=== PATIENT | female | born 1940 | race Caucasian/White ===

== ENCOUNTER 2016-07-13 09:29 | Emergency (ER) | payer MEDICARE, OTHER ==
[~2016-07-13] VITALS: Ht 172.7 cm; Wt 81.8 kg
[~2016-07-13 09:29] MED LIST: AMLO10TA62 PO; ASCO10007 PO; ASPI-611 PO; CALC1TAB17 PO; CHLO25TA16 PO; ESTR1TAB77 PO; FISH1CAP59 PO; IBUP200T53; LOSA100T44 PO; LUTE20CA3 PO; MULT-806 PO
[2016-07-13 09:32] VITALS: BP 129/61; PULSE 71; RESP 12; TEMP 97.4; O2SAT 94; Ht 172.7 cm; Wt 81.8 kg
--- OUTSIDE RECORDS SUMMARY | 2016-07-13 09:34 | XMS REPORT | Referral Summary ---
Author Author [facility] Organization [facility] Address Unknown Phone Unavailable Care Team Providers Care Occupational Therapy Supervisor Name Role Phone Noah Arzate Primary Care Physician [phone] Encounter VC Date(s): 12/10/14 - 12/10/14 [facility] [address] [place] [address] Discharge Disposition: 01-Home or Self Care Attending Physician: Frandy Arzate MD Admitting Physician: Frandy Arzate MD Vital Signs Most recent to 1 oldest [Reference Range]: Blood Pressure 180/110 mmHg [90-140/60-90 mmHg] *HI* (12/10/14 1:56 PM) Problem List Condition Effective Dates Status Health Status Informant Acute Active pain(Confirmed) Adenoca of Active rectum(Confirmed) Alteration in Active nutrition(Confirmed) 1 Anemia(Confirmed) Active At risk of pressure Resolved sore(Confirmed) Bowel Active dysfunction(Confirme d)2 ENTHESOPATHY OF HIP Active REGION(Confirmed) Rash(Confirmed) Active Fluid Resolved imbalance(Confirmed) 3 H/O Active ileostomy(Confirmed) Hypertension(Confirm Active ed) Impaired gas Resolved exchange(Confirmed)4 Impaired skin Active integrity(Confirmed) 5, 6 Elevated blood Active sugar(Confirmed) Lumbar Active radiculopathy(Confir med) Cedillo Active syndrome(Confirmed) Colon 1998 Active cancer(Confirmed)7 Rectal Active cancer(Confirmed) MERALGIA Active PARESTHETICA(Confirm ed) Morbid Active patient obesity(Confirmed) 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) Lumbar disc Active herniation(Confirmed ) Lumbar spinal Active stenosis(Confirmed) Subacromial Active bursitis(Confirmed) THORACIC OR Active LUMBOSACRAL NEURITIS OR RADICULITIS, UNSPECIFIED(Confirme d) Tobacco Active patient user(Confirmed) Trochanteric Active bursitis, left hip(Confirmed) 1Problem added automatically by system based on initiation of Alteration in Nutrition Plan of Care 2Problem added automatically by system based on initiation of Bowel Dysfunction Plan of Care 3Problem added automatically by system based on initiation of Fluid Volume Imbalance Plan of Care 4Problem added automatically by system based on initiation of Impaired Gas Exchange Plan of Care 5Problem updated automatically by system based on initiation of Impaired Skin Integrity Plan of Care 6Problem added automatically by system based on initiation of Impaired Skin Integrity Plan of Care 7SGY X3 Allergies, Adverse Reactions, Alerts Substance Reaction Severity Status morphine Itching Active Medications acetaminophen 325 mg oral tablet 650 mg 2 tabs, Oral, q4hr, Pain Mild (1-3), 0 Refill(s) Start Date: 08/05/14 Status: Ordered Aleve 220 mg, Oral, Daily, 0 Refill(s) Start Date: 03/09/15 Status: Ordered amLODIPine 10 mg oral tablet See Instructions, TAKE 1 TABLET BY MOUTH DAILY Pt needs med check appointment, # 30 tabs, 0 Refill(s), Pharmacy: [facility], TAKE 1 TABLET BY MOUTH DAILY; Pt needs med check appointment Start Date: 06/14/15 Status: Ordered aspirin 81 mg oral tablet 81 mg 1 tabs, Oral, qPM, # 30 tabs, 0 Refill(s) Start Date: 03/18/14 Status: Ordered Calcium 600+D 1 tabs, Oral, Daily, 0 Refill(s) Start Date: 03/18/14 Status: Ordered Cipro 500 mg oral tablet 500 mg 1 tabs, Oral, q12hr, # 42 tabs, 0 Refill(s), Pharmacy: [facility] , 1 tabs Oral q12hr,x21 days Start Date: 05/17/15 Stop Date: 06/07/15 Status: Ordered Claritin 10 mg, Oral, Daily, as needed for allergy symptoms, 0 Refill(s) Start Date: 06/24/14 Status: Ordered Fish Oil 1200 mg oral capsule 1,200 mg 1 caps, Oral, qPM, 0 Refill(s) Start Date: 03/18/14 Status: Ordered Flagyl 500 mg oral tablet 500 mg 1 tabs, Oral, q12hr, # 42 tabs, 0 Refill(s), Pharmacy: [facility] , 1 tabs Oral q12hr,x21 days Start Date: 05/17/15 Stop Date: 06/07/15 Status: Ordered Flonase 50 mcg/inh nasal spray 2 sprays, Nasal, Daily, Seasonal Allergy Symptoms, 0 Refill(s) Start Date: 06/24/14 Status: Ordered hydrochlorothiazide 25 mg oral tablet 25 mg 1 tabs, Oral, Daily, # 90 tabs, 1 Refill(s), Pharmacy: [facility], 1 tabs Oral Daily Start Date: 02/17/15 Status: Ordered hydrocortisone 2.5% topical cream 1 bc, Topical, TID, prn as needed, # 30 g, 0 Refill(s), Pharmacy: [facility] Start Date: 06/14/15 Status: Ordered lutein 20 mg oral tablet 20 mg 1 tabs, Oral, Daily, # 30 tabs, 0 Refill(s) Start Date: 03/18/14 Status: Ordered magnesium oxide 400 mg (241.3 mg elemental magnesium) oral tablet 800 mg 2 tabs, Oral, Daily, # 60 tabs, 3 Refill(s), Pharmacy: [facility] , 2 tabs Oral Daily Start Date: 08/25/14 Status: Ordered metoprolol tartrate 25 mg oral tablet 25 mg 1 tabs, Oral, BID, # 180 tabs, 1 Refill(s), Pharmacy: [facility] Start Date: 02/17/15 Stop Date: 08/16/15 Status: Ordered multivitamin 1 tabs, Oral, qPM, 0 Refill(s) Start Date: 03/18/14 Status: Ordered [place] 5 mg-325 mg oral tablet 1 -2 tabs, Oral, q4hr, Pain Moderate (4-6), 0 Refill(s) Start Date: 03/13/15 Status: Ordered omega-3 polyunsaturated fatty acids oral capsule 1 caps, Oral, Daily, # 100 caps, 0 Refill(s) Start Date: 03/11/15 Status: Ordered Opium Deodorized 10% (equivalent to morphine 10 mg/mL) oral tincture See Instructions, 0.5 ml po tid, # 50 mL, 0 Refill(s) Start Date: 06/15/15 Status: Ordered potassium chloride 20 mEq oral tablet, extended release 20 mEq 1 tabs, Oral, Daily, # 30 tabs, 3 Refill(s), Pharmacy: [facility] , 1 tabs Oral Daily Start Date: 12/16/14 Status: Ordered Vitamin C 500 mg, Oral, qPM, 0 Refill(s) Start Date: 07/19/14 Status: Ordered Results No data available for this section Immunizations Vaccine Date Refusal Reason influenza virus vaccine, inactivated 11/24/14 pneumococcal 23-polyvalent vaccine 03/19/15 Procedures Procedure Date Related Diagnosis Body Site Closure Ileostomy1 03/11/15 LEFT L2-3/L4-5 TRANSFORAMINAL 11/11/14 Laparotomy Exploratory2 07/01/14 Cystoscopy Ureteral Stent Insertion3 06/29/14 Ileostomy Loop4 06/29/14 Bilateral Trochanteric Bursa Injection under 05/18/14 US L2-3 Translaminar 04/30/14 Cholecystectomy 1995 Colon Surgery X3 1971 colon surgery removal of cancer Colonoscopy Gallbladder Hehisscence Repair X2 Hysterectomy Left hand surgery 1auto-populated from documented surgical case 2auto-populated from documented surgical case 3auto-populated from documented surgical case 4auto-populated from documented surgical case Social History Social History Type Response Smoking Status Former smoker; Type: Cigarettes; Total pack years: 8 Assessment and Plan Extracted from: Title: Ambulatory Patient Education Author: Frandy Arzate MD Date: Family Medicine Colorectal Cancer Colorectal cancer is an abnormal growth of tissue (tumor) in the colon or rectum that is cancerous (malignant). Unlike noncancerous (benign) tumors, malignant tumors can spread to other parts of your body. The colon is the large bowel or large intestine. The rectum is the last several inches of the colon. RISK FACTORS The exact cause of colorectal cancer is unknown. However, the following factors may increase your chances of getting colorectal cancer: Age older than 50 years. Abnormal growths (polyps) on the inner wall of the colon or rectum. Diabetes. race. Family history of hereditary nonpolyposis colorectal cancer. This condition is caused by changes in the genes that are responsible for repairing mismatched DNA. Personal history of cancer. A person who has already had colorectal cancer may develop it a second time. Also, women with a history of ovarian, uterine, or breast cancer are at a somewhat higher risk of developing colorectal cancer. Certain hereditary conditions. Eating a diet that is high in fat (especially animal fat) and low in fiber , fruits, and vegetables. Sedentary lifestyle. Inflammatory bowel disease, including ulcerative colitis and Crohn's disease. Smoking. Excessive alcohol use. SYMPTOMS Early colorectal cancer often does not cause symptoms. As the cancer grows, symptoms may include: Changes in bowel habits. Diarrhea. Constipation. Feeling like the bowel does not empty completely after a bowel movement. Blood in the stool. Stools that are narrower than usual. Abdominal discomfort, pain, bloating, fullness, or cramps. Frequent gas pain. Unexplained weight loss. Constant tiredness. Nausea and vomiting. DIAGNOSIS Your health care provider will ask about your medical history. He or she may also perform a number of procedures, such as: A physical exam. A digital rectal exam. A fecal occult blood test. A barium enema. Blood tests. X-rays. Imaging tests, such as CT scans or MRIs. Taking a tissue sample (biopsy) from your colon or rectum to look for cancer cells. A sigmoidoscopy to view the inside of the last part of your colon. A colonoscopy to view the inside of your entire colon. An endorectal ultrasound to see how deep a rectal tumor has grown and whether the cancer has spread to lymph nodes or other nearby tissues. Your cancer will be staged to determine its severity and extent. Staging is a careful attempt to find out the size of the tumor, whether the cancer has spread , and if so, to what parts of the body. You may need to have more tests to determine the stage of your cancer. The test results will help determine what treatment plan is best for you. Stage 0. The cancer is found only in the innermost lining of the colon or rectum. Stage I. The cancer has grown into the inner wall of the colon or rectum. The cancer has not yet reached the outer wall of the colon. Stage II. The cancer extends more deeply into or through the wall of the colon or rectum. It may have invaded nearby tissue, but cancer cells have not spread to the lymph nodes. Stage III. The cancer has spread to nearby lymph nodes but not to other parts of the body. Stage IV. The cancer has spread to other parts of the body, such as the liver or lungs. Your health care provider may tell you the detailed stage of your cancer, which includes both a number and a letter. TREATMENT Depending on the type and stage, colorectal cancer may be treated with surgery, radiation therapy, chemotherapy, targeted therapy, or radiofrequency ablation. Some people have a combination of these therapies. Surgery may be done to remove the polyps from your colon. In early stages, your health care provider may be able to do this during a colonoscopy. In later stages, surgery may be done to remove part of your colon. HOME CARE INSTRUCTIONS Take medicines only as directed by your health care provider. Maintain a healthy diet. Consider joining a support group. This may help you learn to cope with the stress of having colorectal cancer. Seek advice to help you manage treatment of side effects. Keep all follow-up visits as directed by your health care provider. Inform your cancer specialist if you are admitted to the hospital. SEEK MEDICAL CARE IF: Your diarrhea or constipation does not go away. Your bowel habits change. You have increased abdominal pain. You notice new fatigue or weakness. You lose weight. Document Released: 02/05/2006 Document Revised: 06/22/2014 Document Reviewed: [facility] Patient Information 2015 [place]. This information is not intended to replace advice given to you by your health care provider. Make sure you discuss any questions you have with your health care provider. No follow up information was provided. Extracted from: Title: Office Visit Note Author: Frandy Arzate MD Date: 12/10/14 Assessment/Plan Hypertension Add bystolic 5mg 1/2 tab daily. Samples of the new medication were provided as a courtesy. Side effects were discussed and follow up was recommended. Monitor bp closely. Kidney stone This issue is stable and appropriate refills, lab, and f/u have been discussed. Monitor and frequent fluids. Has a trip planned and did not want further consults or changes. Morbid obesity Diet and exercise as tolerated and feasible. Consider medication when interested. Rectal cancer This issue is stable and appropriate refills, lab, and f/u have been discussed. Seeing Dr. Inderjit Shearer. Orders: amLODIPine, 10 mg 1 tabs, Oral, Daily, # 90 tabs, 0 Refill(s), Pharmacy: [facility], 1 tabs Oral Daily,x90 days nebivolol, 2.5 mg 0.5 tabs, Oral, Daily, # 15 tabs, 0 Refill(s), samples given to patient (Rx)
--- OUTSIDE RECORDS SUMMARY | 2016-07-13 09:34 | XMS REPORT | Referral Summary ---
Author Author [facility] Organization [facility] Address Unknown Phone Unavailable Care Team Providers Care Solar System Designer Name Role Phone Noah Arzate Primary Care Physician [phone] Encounter Date(s): 09/28/15 - 09/28/15 [facility] [address] [place], [place] [address] Discharge Disposition: 01-Home or Self Care Attending Physician: Mauro Pennington MD Admitting Physician: Mauro Pennington MD Referring Physician: Frandy Arzate MD Vital Signs No data available for this section Problem List Condition Effective Dates Status Health Status Informant Acute Active pain(Confirmed) Adenoca of Active rectum(Confirmed) Alteration in Active nutrition(Confirmed) 1 Anemia(Confirmed) Active At risk of pressure Resolved sore(Confirmed) Abnormal blood Active sugar(Confirmed) Bowel Active dysfunction(Confirme d)2 ENTHESOPATHY OF HIP Active REGION(Confirmed) Rash(Confirmed) Active Fluid Resolved imbalance(Confirmed) 3 H/O Active ileostomy(Confirmed) 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) Hypertension(Confirm Active ed) Impaired gas Resolved exchange(Confirmed)4 Impaired skin Active integrity(Confirmed) 5, 6 Elevated blood Active sugar(Confirmed) Lumbar Active radiculopathy(Confir med) Cedillo Active syndrome(Confirmed) Malignant Active melanoma(Confirmed) Colon 1998 Active cancer(Confirmed)7 Rectal Active cancer(Confirmed) [...] Status: Ordered amLODIPine 10 mg oral tablet 10 mg 1 tabs, Oral, Daily, # 90 tabs, 1 Refill(s), Pharmacy: [facility], 1 tabs Oral Daily,x90 days Start Date: 09/17/15 Stop Date: 03/15/16 Status: Ordered aspirin 81 mg oral tablet 81 mg 1 tabs, Oral, qPM, # 30 tabs, 0 Refill(s) Start Date: 03/18/14 Status: Ordered Calcium 600+D 1 tabs, Oral, Daily, 0 Refill(s) Start Date: 03/18/14 Status: Ordered Claritin 10 mg, Oral, Daily, as needed for allergy symptoms, 0 Refill(s) Start Date: 06/24/14 Status: Ordered Fish Oil 1200 mg oral capsule 1,200 mg 1 caps, Oral, qPM, 0 Refill(s) Start Date: 03/18/14 Status: Ordered Flonase 50 mcg/inh nasal spray 2 sprays, Nasal, Daily, Seasonal Allergy Symptoms, 0 Refill(s) Start Date: 06/24/14 Status: Ordered hydrochlorothiazide 25 mg oral tablet 25 mg 1 tabs, Oral, Daily, # 90 tabs, 1 Refill(s), Pharmacy: [facility], 1 tabs Oral Daily Start Date: 09/17/15 Status: Ordered hydrocortisone 2.5% topical cream 1 bc, Topical, TID, prn as needed, # 30 g, 0 Refill(s), Pharmacy: [facility] Start Date: 06/14/15 Status: Ordered Lomotil 2.5 mg-0.025 mg oral tablet See Instructions, 1 tabs Oral q 6 hrs prn loose stools, # 100 tabs, 11 Refill(s) Start Date: 08/04/15 Status: Ordered lutein 20 mg oral tablet 20 mg 1 tabs, Oral, Daily, # 30 tabs, 0 Refill(s) Start Date: 03/18/14 Status: Ordered metoprolol tartrate 25 mg oral tablet 25 mg 1 tabs, Oral, BID, # 180 tabs, 1 Refill(s), Pharmacy: [facility] Start Date: 09/17/15 Stop Date: 03/15/16 Status: Ordered multivitamin 1 tabs, Oral, qPM, 0 Refill(s) Start Date: 03/18/14 Status: Ordered omega-3 polyunsaturated fatty acids oral capsule 1 caps, Oral, Daily, # 100 caps, 0 Refill(s) Start Date: 03/11/15 Status: Ordered Opium Deodorized 10% (equivalent to morphine 10 mg/mL) oral tincture See Instructions, 1.0 ml po tid, # 50 mL, 0 Refill(s) Start Date: 09/17/15 Status: Ordered potassium chloride 20 mEq oral tablet, extended release 20 mEq 1 tabs, Oral, Daily, # 30 tabs, 3 Refill(s), Pharmacy: [facility] , 1 tabs Oral Daily Start [...] under 05/18/14 US L2-3 Translaminar 04/30/14 Cholecystectomy 1996 Colon Surgery X3 1971 colon surgery removal of cancer Colonoscopy Gallbladder Hehisscence Repair X2 Hysterectomy Left hand surgery 1auto-populated from documented surgical case 2auto-populated from documented surgical case 3auto-populated from documented surgical case 4auto-populated from documented surgical case Social History Social History Type Response Smoking Status Former smoker; Type: Cigarettes; Total pack years: 8 Assessment and Plan Extracted from: Title: suture removal Author: Paula Lim LPN Date: 09/28/15 Patient here for suture removal center chest. Suture removed with ease and no sign of infection. She inquired about appt at Karli's office. She had to cancel appt in August due to with emergency and has not heard from them re : rescheduled appt. I called Karli's office and his lead php developer has her information and will call her later this week to schedule appt. Patient notified as noted.
--- OUTSIDE RECORDS SUMMARY | 2016-07-13 09:34 | XMS REPORT | Referral Summary ---
Author Author [facility], [facility] Organization [facility] Address Unknown Phone Unavailable Care Team Providers Care Diesel Fitter Mechanic Name Role Phone Noah Arzate Primary Care Physician [phone] Encounter Date(s): 01/04/16 - 01/04/16 [facility] [address] [place] [address]- Discharge Diagnosis: Lipid screening Discharge Diagnosis: Well woman exam with routine gynecological exam Discharge Diagnosis: Hypertension Discharge Diagnosis: Anemia Discharge Diagnosis: Dysuria Discharge Diagnosis: Adenoca of rectum Discharge Diagnosis: Vaginal discharge Discharge Diagnosis: Postmenopausal Discharge Diagnosis: Depression Discharge Diagnosis: Chronic diarrhea Discharge Disposition: 01-Home or Self Care Attending Physician: Ruchi Gross PA-C Admitting Physician: Ruchi Gross PA-C Vital Signs Most recent to 1 oldest [Reference Range]: Peripheral Pulse 68 bpm Rate [60-100 bpm] (01/04/16 1:29 PM) Blood Pressure 134/66 mmHg [90-140/60-90 mmHg] (01/04/16 1:29 PM) SpO2 99 % (01/04/16 1:29 PM) Problem List Condition Effective Dates Status [...] Rectal Active cancer(Confirmed) MERALGIA Active PARESTHETICA(Confirm ed) Depression(Confirmed Active ) Morbid Active patient obesity(Confirmed) Degenerative joint Active [...] Daily, # 90 tabs, 1 Refill(s), Pharmacy: [facility], 1 tabs Oral Daily,x90 days Start Date: [...] Daily, # 90 tabs, 1 Refill(s), Pharmacy: [facility], 1 tabs Oral Daily Start Date: 09/17/15 Status: Ordered Lexapro 10 mg oral tablet 10 mg 1 tabs, Oral, Daily, # 30 tabs, 0 Refill(s), Pharmacy: [facility] # [id number], 1 tabs Oral Daily Start Date: 01/04/16 Status: Ordered Lomotil 2.5 mg-0.025 mg oral tablet See Instructions, 1 tabs Oral q 6 hrs prn loose stools [place], # 100 tabs, 11 Refill(s) Start Date: 01/04/16 Status: Ordered lutein 20 mg oral tablet 20 mg 1 tabs, Oral, Daily, # 30 tabs, 0 Refill(s) Start Date: 03/18/14 Status: Ordered metoprolol tartrate 25 mg oral tablet 25 mg 1 tabs, Oral, BID, # 180 tabs, 1 Refill(s), Pharmacy: [facility] Start Date: 09/17/15 Stop Date: 03/15/16 Status: Ordered multivitamin 1 tabs, Oral, qPM, 0 Refill(s) Start Date: 03/18/14 Status: Ordered omega-3 polyunsaturated fatty acids oral capsule 1 caps, Oral, Daily, # 100 caps, 0 Refill(s) Start Date: 03/11/15 Status: Ordered Opium Deodorized (equivalent to morphine 10 mg/mL) oral tincture See Instructions, 1 ml po tid PRN diarrhea, # 120 mL, 0 Refill(s) Start Date: 01/04/16 Status: Ordered potassium chloride 20 mEq oral tablet, extended release 20 mEq 1 tabs, Oral, Daily, # 30 tabs, 3 Refill(s), Pharmacy: [facility] , 1 tabs Oral Daily Start Date: 12/16/14 Status: Ordered Vitamin C 500 mg, Oral, qPM, 0 Refill(s) Start Date: 07/19/14 Status: Ordered Results Urinalysis Most recent to 1 oldest [Reference Range]: UA Color Yellow (01/04/16 2:48 PM) UA Appear Clear (01/04/16 2:48 PM) UA pH [5.0-8.0] 5.0 (01/04/16 2:48 PM) UA Leuk Est Pos 2+ [Negative] *ABN* (01/04/16 2:48 PM) UA Nitrite Negative [Negative] (01/04/16 2:48 PM) UA Protein Negative [Negative] (01/04/16 2:48 PM) UA Glucose Negative [Negative] (01/04/16 2:48 PM) UA Ketones Negative [Negative] (01/04/16 2:48 PM) UA Urobilinogen 0.2 mg/dL [<=1.0 mg/dL] (01/04/16 2:48 PM) UA Bili [Negative] Negative (01/04/16 2:48 PM) UA Blood [Negative] Pos 2+ *ABN* (01/04/16 2:48 PM) UA Spec Grav >=1.030 [1.003-1.030] (01/04/16 2:48 PM) Type Clean Catch (01/04/16 2:48 PM) UA WBC [0-4] 2-4 (01/04/16 2:48 PM) UA RBC [0-2] 2-5 (01/04/16 2:48 PM) Epithelial Cells 2-5 (01/04/16 2:48 PM) UA Bacteria Rare (01/04/16 2:48 PM) Immunizations Vaccine Date Refusal Reason influenza virus [...] Total pack years: 8 Assessment and Plan No data available for this section
--- OUTSIDE RECORDS SUMMARY | 2016-07-13 09:34 | XMS REPORT | Referral Summary ---
Author Author [facility] Organization [facility] Address Unknown Phone Unavailable Care Team Providers Care Bank Operations Officer Name Role Phone LeilanimarielaNoah Primary Care Physician [phone] Encounter VC Date(s): 08/18/14 - 08/18/14 [facility] [address] [place], [place] [address] Discharge Diagnosis: Rectal cancer Discharge Diagnosis: Fever Discharge Diagnosis: Cedillo syndrome Discharge Diagnosis: Abdominal pain Discharge Diagnosis: Fever Discharge Disposition: 01-Home or Self Care Attending Physician: Rick Shearer MD Admitting Physician: Rick Shearer MD Vital Signs No data available for this section Problem List Condition Effective Dates Status Health Status Informant Acute Resolved pain(Confirmed) Adenoca of Active rectum(Confirmed) Anemia(Confirmed) Active At risk of pressure Resolved sore(Confirmed) Bowel Active dysfunction(Confirme d)1 ENTHESOPATHY OF HIP Active REGION(Confirmed) Rash(Confirmed) Active Fluid Resolved imbalance(Confirmed) 2 H/O Active ileostomy(Confirmed) Hypertension(Confirm Active ed) Impaired gas Resolved exchange(Confirmed)3 Impaired skin Resolved integrity(Confirmed) 4 Elevated blood Active sugar(Confirmed) Lumbar Active radiculopathy(Confir med) Cedillo Active syndrome(Confirmed) Colon 1998 Active cancer(Confirmed)5 Rectal Active cancer(Confirmed) MERALGIA Active PARESTHETICA(Confirm ed) Morbid Active patient obesity(Confirmed) 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) Lumbar disc Active herniation(Confirmed ) Lumbar spinal Active stenosis(Confirmed) Subacromial Active bursitis(Confirmed) THORACIC OR Active LUMBOSACRAL NEURITIS OR RADICULITIS, UNSPECIFIED(Confirme d) Tobacco Active patient user(Confirmed) Trochanteric Active bursitis, left hip(Confirmed) 1Problem added automatically by system based on initiation of Bowel Dysfunction Plan of Care 2Problem added automatically by system based on initiation of Fluid Volume Imbalance Plan of Care 3Problem added automatically by system based on initiation of Impaired Gas Exchange Plan of Care 4Problem added automatically by system based on initiation of Impaired Skin Integrity Plan of Care 5SGY X3 Allergies, Adverse Reactions, Alerts Substance Reaction Severity Status hydrochlorothiazide DIARRHEA Active morphine Itching Active Medications acetaminophen 325 mg oral tablet 650 mg 2 tabs, Oral, q4hr, Pain Mild (1-3), 0 Refill(s) Start Date: 08/05/14 Status: Ordered amLODIPine 10 mg oral tablet 10 mg 1 tabs, Oral, Daily, # 90 tabs, 0 Refill(s), Pharmacy: [facility], 1 tabs Oral Daily,x90 days Start Date: 12/10/14 Stop Date: 03/10/15 Status: Ordered aspirin 81 mg oral tablet [...] Daily, # 90 tabs, 1 Refill(s), Pharmacy: [facility], 1 tabs Oral Daily Start Date: 02/17/15 Status: Ordered Imodium A-D 2 mg oral tablet 4 mg, Oral, q6hr, 0 Refill(s) Start Date: 08/05/14 Status: Ordered Lomotil 2.5 mg-0.025 mg oral tablet 1 tabs, Oral, q6hr, # 100 tabs, 11 Refill(s) Start Date: 12/08/14 Status: Ordered lutein 20 mg oral tablet 20 mg 1 tabs, Oral, Daily, # 30 tabs, 0 Refill(s) Start Date: 03/18/14 Status: Ordered magnesium oxide 400 mg (241.3 mg elemental magnesium) oral tablet 800 mg 2 tabs, Oral, Daily, # 60 tabs, 3 Refill(s), Pharmacy: [facility] , 2 tabs Oral Daily Start Date: 08/25/14 Status: Ordered Metamucil Oral, 5 pills tid, 0 Refill(s) Start Date: 10/20/14 Status: Ordered metoprolol tartrate 25 mg oral tablet 25 mg 1 tabs, Oral, BID, # 180 tabs, 1 Refill(s), Pharmacy: [facility] Start Date: 02/17/15 Stop Date: 08/16/15 Status: Ordered multivitamin 1 tabs, Oral, qPM, 0 Refill(s) Start Date: 03/18/14 Status: Ordered potassium chloride 20 mEq oral tablet, extended release 20 mEq 1 tabs, Oral, Daily, # 30 tabs, 3 Refill(s), Pharmacy: [facility] , 1 tabs Oral Daily Start Date: 12/16/14 Status: Ordered Vitamin C 500 mg, Oral, qPM, 0 Refill(s) Start Date: 07/19/14 Status: Ordered Results No data available for this section Immunizations Vaccine Date Refusal Reason influenza virus vaccine, inactivated 11/24/14 Procedures Procedure Date Related Diagnosis Body Site LEFT L2-3/L4-5 TRANSFORAMINAL 11/11/14 Laparotomy Exploratory1 07/01/14 Cystoscopy Ureteral Stent Insertion2 06/29/14 Ileostomy Loop3 06/29/14 Bilateral Trochanteric Bursa Injection under 05/18/14 US L2-3 Translaminar 04/30/14 Cholecystectomy 1995 Colon Surgery X3 1971 colon surgery removal of cancer Gallbladder Hehisscence Repair X2 Hysterectomy Left hand surgery 1auto-populated from documented surgical case 2auto-populated from documented surgical case 3auto-populated from documented surgical case Social History Social History Type Response Smoking Status Former smoker; Type: Cigarettes; Total pack years: 8 Assessment and Plan Extracted from: Title: Office Visit Note Author: Rick Shearer MD Date: 08/18/14 Assessment/Plan Abdominal pain Cedillo syndrome Rectal cancer As far as her ileostomy and fluid balance. She is doing fairly well. However, her fevers are concerning . In addition, she is having some abdominal pain around her ileostomy. On exam, there is also some fullness or firmness to the area. I think the thing to do at this point in time is to get a CT scan of her abdomen and pelvis.
--- OUTSIDE RECORDS SUMMARY | 2016-07-13 09:34 | XMS REPORT | Referral Summary ---
Author Author [facility] Organization [facility] Address Unknown Phone Unavailable Care Team Providers Care Weight And Balance Control Agent Name Role Phone Leilanimariela Noah Primary Care Physician [phone] Encounter VC Date(s): 06/29/14 - 06/29/14 [facility] [address] [place], [place] [address] Discharge Disposition: 01-Home or Self Care Attending Physician: Rick Shearer MD Admitting Physician: Rick Shearer MD Vital Signs No data available for this section Problem List Condition Effective Dates Status Health Status Informant Acute Resolved pain(Confirmed) Adenoca of Active rectum(Confirmed) Anemia(Confirmed) Active At risk of pressure Resolved sore(Confirmed) Bowel Active dysfunction(Confirme d)1 ENTHESOPATHY OF HIP Active REGION(Confirmed) Fluid Resolved imbalance(Confirmed) 2 H/O Active ileostomy(Confirmed) Hypertension(Confirm Active ed) Impaired gas Resolved exchange(Confirmed)3 Impaired skin Resolved integrity(Confirmed) 4 Cedillo Active syndrome(Confirmed) Colon 1998 Active cancer(Confirmed)5 Rectal Active cancer(Confirmed) MERALGIA Active PARESTHETICA(Confirm ed) Morbid Active patient obesity(Confirmed) 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) Lumbar disc Active herniation(Confirmed ) Lumbar spinal Active stenosis(Confirmed) Subacromial Active bursitis(Confirmed) THORACIC OR Active LUMBOSACRAL NEURITIS OR RADICULITIS, UNSPECIFIED(Confirme d) Tobacco Active patient user(Confirmed) 1Problem added automatically by system based on [...] Daily, # 90 tabs, 0 Refill(s), Pharmacy: [facility], 1 tabs Oral Daily,x90 days Start Date: 12/10/14 Stop Date: 03/10/15 Status: Ordered aspirin 81 mg oral tablet 81 mg 1 tabs, Oral, qPM, # 30 tabs, 0 Refill(s) Start Date: 03/18/14 Status: Ordered Bystolic 5 mg oral tablet 2.5 mg 0.5 tabs, Oral, Daily, # 15 tabs, 0 Refill(s), samples given to patient ( Rx) Start Date: 12/10/14 Status: Ordered Calcium 600+D 1 tabs, Oral, Daily, 0 Refill(s) Start Date: 03/18/14 Status: Ordered chlorthalidone 25 mg oral tablet 25 mg 1 tabs, Oral, Daily, # 90 tabs, 0 Refill(s), Pharmacy: [facility], 1 tabs Oral Daily,x90 days Start Date: 11/24/14 Stop Date: 02/22/15 Status: Ordered Claritin 10 mg, Oral, Daily, as needed for allergy symptoms, 0 Refill(s) Start Date: 06/24/14 Status: Ordered ferrous sulfate 325 mg (65 mg elemental iron) oral delayed release tablet See Instructions, 1 tabs Oral TID, # 90 tabs, eRx: [facility], 1 tabs Oral TID Start Date: 10/14/14 Status: Ordered Fish Oil 1200 mg oral capsule 1,200 mg 1 caps, Oral, qPM, 0 Refill(s) Start Date: 03/18/14 Status: Ordered Flonase 50 mcg/inh nasal spray 2 sprays, Nasal, Daily, Seasonal Allergy Symptoms, 0 Refill(s) Start Date: 06/24/14 Status: Ordered hydrochlorothiazide 25 mg oral tablet 25 mg 1 tabs, Oral, Daily, APPT in 30 DAYS DC Chlorthalidone, # 90 tabs, 0 Refill(s), Pharmacy: [facility], 1 tabs Oral Daily,Instr:APPT in 30 DAYS ; DC Chlorthalidone Start Date: 11/25/14 Status: Ordered Imodium A-D 2 mg oral [...] Daily, # 60 tabs, 3 Refill(s), Pharmacy: [facility] , 2 tabs Oral Daily Start Date: 08/25/14 Status: Ordered Metamucil Oral, 5 pills tid, 0 Refill(s) Start Date: 10/20/14 Status: Ordered Metamucil 3.4 g 1 packets, Oral, TID, 0 Refill(s) Start Date: 08/05/14 Status: Ordered multivitamin 1 tabs, Oral, qPM, 0 Refill(s) Start Date: 03/18/14 Status: Ordered potassium chloride 20 mEq oral tablet, extended release 20 mEq 1 tabs, Oral, Daily, # 30 tabs, 3 Refill(s), Pharmacy: [facility] , 1 tabs Oral Daily Start Date: 12/16/14 Status: Ordered Vitamin C 500 mg, Oral, qPM, 0 Refill(s) Start Date: 07/19/14 Status: Ordered Results No data available for this section Immunizations Vaccine Date Refusal Reason influenza virus vaccine, inactivated 11/24/14 Procedures Procedure Date Related Diagnosis Body Site LEFT L2-3/L4-5 TRANSFORAMINAL 11/11/14 Enterectomy, resection of small intestine; 07/01/14 single resection and anastomosis Laparotomy Exploratory1 07/01/14 Reopening of recent laparotomy 07/01/14 Cystoscopy Ureteral Stent Insertion2 06/29/14 Ileostomy Loop3 06/29/14 Proctectomy, partial, with rectal 06/29/14 mucosectomy, ileoanal anastomosis, creation of ileal reservoir (S or J), with or without loop ileostomy Bilateral Trochanteric Bursa Injection under 05/18/14 US [...]
--- OUTSIDE RECORDS SUMMARY | 2016-07-13 09:35 | XMS REPORT | Referral Summary ---
Author Author [facility] Organization [facility] Address Unknown Phone Unavailable Care Team Providers Care Hand Cutter Apprentice Name Role Phone Leilanimariela Noah Primary Care Physician [phone] Encounter VC Date(s): 09/08/14 - 09/08/14 [facility] [address] [place], [place] [address] Discharge Diagnosis: Adenoca of rectum Discharge Disposition: 01-Home or Self Care Attending Physician: Rick Shearer MD Admitting Physician: Rick Shearer MD Referring Physician: Roxanna Gonzalez DO Vital Signs No data available for this [...] Daily, # 90 tabs, 0 Refill(s), Pharmacy: [facility], 1 tabs Oral Daily,x90 days Start [...] Daily, # 90 tabs, 1 Refill(s), Pharmacy: [facility], 1 tabs Oral Daily Start Date: 02/17/15 Status: Ordered lutein 20 mg oral tablet 20 mg 1 tabs, Oral, Daily, # 30 tabs, 0 Refill(s) Start Date: 03/18/14 Status: Ordered magnesium oxide 400 mg (241.3 mg elemental magnesium) oral tablet 800 mg 2 tabs, Oral, Daily, # 60 tabs, 3 Refill(s), Pharmacy: [facility] , 2 tabs Oral Daily Start Date: 08/25/14 Status: Ordered metoprolol tartrate 25 mg oral tablet 25 mg 1 tabs, Oral, BID, # 180 tabs, 1 Refill(s), Pharmacy: [facility] Start Date: 02/17/15 Stop Date: 08/16/15 Status: Ordered multivitamin 1 tabs, Oral, qPM, 0 Refill(s) Start Date: 03/18/14 Status: Ordered Milton 5 mg-325 mg oral tablet 1 -2 tabs, Oral, q4hr, Pain Moderate (4-6), 0 Refill(s) Start Date: 03/13/15 Status: Ordered omega-3 polyunsaturated fatty acids oral capsule 1 caps, Oral, Daily, # 100 caps, 0 Refill(s) Start Date: 03/11/15 Status: Ordered potassium chloride 20 mEq oral tablet, extended release 20 mEq 1 tabs, Oral, Daily, # 30 tabs, 3 Refill(s), Pharmacy: [facility] , 1 tabs Oral Daily Start Date: 12/16/14 Status: Ordered Reglan 10 mg oral tablet 10 mg 1 tabs, Oral, q6hr, Nausea or Vomiting, # 30 tabs, 0 Refill(s), other reason (Rx) Start Date: 03/13/15 Stop Date: 04/13/15 Status: Suspended Vitamin C 500 mg, Oral, qPM, 0 [...] Visit Note Author: Rick Shearer MD Date: 09/09/14 Assessment/Plan Adenoca of rectum She is doing well. I will have her follow-up with me in one month. We will obtain a pouchogram first. I think that she may be ready to consider an ileostomy closure at that point. All of her questions were answered. Ordered: Postoperative Est 72082 Orders: XR Gastrografin Enema
--- OUTSIDE RECORDS SUMMARY | 2016-07-13 09:35 | XMS REPORT | Referral Summary ---
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 Discharge Disposition: 01-Home or Self Care Attending [...] Oral, Daily, # 30 tabs, 0 Refill(s), other reason (Rx) Start Date: 11/30/14 Status: Ordered aspirin 81 mg oral tablet 81 mg 1 tabs, Oral, qPM, # 30 tabs, 0 Refill(s) Start Date: 03/18/14 Status: Ordered Calcium 600+D 1 tabs, Oral, Daily, 0 Refill(s) Start Date: 03/18/14 Status: Ordered chlorthalidone 25 mg oral tablet 25 mg 1 tabs, Oral, Daily, # 90 tabs, 0 Refill(s), Pharmacy: [facility], 1 tabs Oral Daily,x90 days Start Date: 11/24/14 Stop Date: 02/22/15 Status: Ordered Claritin 10 mg, Oral, Daily, as needed for allergy symptoms, 0 Refill(s) Start Date: 06/24/14 Status: Ordered ferrous sulfate 325 mg (65 mg elemental iron) oral delayed release tablet See Instructions, 1 tabs Oral TID, # 90 tabs, eRx: [facility], 1 tabs Oral TID Start [...] Chlorthalidone, # 90 tabs, 0 Refill(s), Pharmacy: [facility], 1 tabs Oral Daily,Instr:APPT in [...] # 60 tabs, 3 Refill(s), Pharmacy: [facility] , 2 tabs Oral Daily [...] # 30 tabs, 3 Refill(s), Pharmacy: [facility] , 1 tabs Oral Daily Start Date: 08/25/14 Status: Ordered Vitamin C 500 mg, Oral, [...] Visit Note Author: Rick Shearer MD Date: 12/08/14 Assessment/Plan Cedillo syndrome Ordered: Office Visit Level 2 Est 87768 Rectal cancer For the most part, the pouch looks good. My plan is to do a pouchogram in 2 months. If the findings are stable, I think we will go ahead and close ileostomy. All of her questions have been answered at this point in time. Ordered: Office Visit Level 2 Est 55536 XR Gastrografin Enema Orders: diphenoxylate-atropine, 1 tabs, Oral, q6hr, # 100 tabs, 11 Refill(s) Extracted from: Title: Ambulatory Patient Education Author: La Black LPN Date: [facility] Loop Colostomy Reversal A loop colostomy reversal is surgery that reverses a loop colostomy. The large intestine is disconnected from the opening in the abdomen (stoma). It is then stitched (sutured) together inside the body. A stoma and pouch are no longer needed. Bowel movements can resume through the rectum. LET YOUR CAREGIVER KNOW ABOUT: Allergies to food or medicine. Medicines taken, including vitamins, health supplements, herbs, eyedrops, [id number] medicines, and creams. Use of steroids (by mouth or creams). Previous problems with anesthetics or numbing medicines. History of bleeding problems or blood clots. Previous surgery. Other health problems, including diabetes and kidney problems. Possibility of , if this applies. RISKS AND COMPLICATIONS General surgical complications may include: Reaction to anesthesia. Damage to surrounding nerves, tissues, or structures. Blood clot. Bleeding. Scarring. Specific risks for colostomy reversal, while rare, may include: Intestinal paralysis (ileus). This is a normal part of recovery. It usually goes away in 3 to 7 days. However, it can last longer in some people. Leaking at the joined part of the intestine (anastomotic leak). Infection of the surgical cut (incision) or the place where the stoma was located. A collection of pus (abscess) in the abdomen or pelvis. Intestinal blockage. Narrowing at the joined part of the intestine (stricture). Urinary and sexual dysfunction. BEFORE THE PROCEDURE It is important to follow your surgeon's instructions prior to your procedure. This will help you to avoid complications. Steps before your procedure may include: A physical exam, rectal exam, X-rays, colonoscopy, and other procedures. Chemotherapy or radiation therapy if the stoma was created for cancer. A review of the procedure, the anesthesia being used, and what to expect after the procedure. You may be asked to: Stop taking certain medicines for several days prior to your procedure. This may include blood thinners (such as aspirin). Take certain medicines, such as antibiotics or stool softeners. Avoid eating and drinking after midnight the night before the procedure. This will help you to avoid complications from the anesthesia. Quit smoking. Smoking increases the chances of a healing problem after your procedure. PROCEDURE You will be given medicine that makes you sleep (general anesthetic).The procedure usually requires a small incision at the site of the colostomy. The surgeon will stitch or staple the two ends of the intestine back together, inside the abdominal cavity. The stoma will then be closed and covered with a gauze bandage (dressing). AFTER THE PROCEDURE You will be given pain medicine. Your caregivers will slowly increase your diet and movement. You can expect to be in the hospital for about 3 to 5 days. You should arrange for someone to help you with activities at home while you recover. Document Released: 09/18/2011 Document Revised: 06/22/2014 Document Reviewed: Exit[employer] Patient Information 2015 [employer], [facility]. This information is not intended to replace advice given to you by your health care provider. Make sure you discuss any questions you have with your health care provider. No follow up information was provided.
--- OUTSIDE RECORDS SUMMARY | 2016-07-13 09:35 | XMS REPORT | Referral Summary ---
Author Author [facility] Organization [facility], [place] Address Unknown Phone Unavailable Care Team Providers Care Material Requirements Worker Name Role Phone Noah Arzate Primary Care Physician [phone] Encounter [facility] Date(s): 12/02/14 - 12/02/14 [facility], [address] [place] [address] Discharge Disposition: 01-Home or Self Care Attending Physician: Frandy Arzate MD Admitting Physician: Frandy Arzate MD Vital Signs Most recent to 1 oldest [Reference Range]: Blood Pressure 140/70 mmHg [90-140/60-90 mmHg] (12/02/14 1:18 PM) Problem List Condition Effective Dates Status [...] Daily, # 90 tabs, 0 Refill(s), Pharmacy: [facility], 1 tabs Oral Daily,x90 days Start [...] q12hr, # 42 tabs, 0 Refill(s), Pharmacy: [facility] , 1 tabs Oral [...] q12hr, # 42 tabs, 0 Refill(s), Pharmacy: [facility] , 1 tabs Oral q12hr,x21 days Start Date: 05/17/15 Stop Date: 06/07/15 Status: Ordered Flonase 50 mcg/inh nasal spray 2 sprays, Nasal, Daily, Seasonal Allergy Symptoms, 0 Refill(s) Start Date: 06/24/14 Status: Ordered hydrochlorothiazide 25 mg oral tablet 25 mg 1 tabs, Oral, Daily, # 90 tabs, 1 Refill(s), Pharmacy: [facility], 1 tabs Oral Daily Start Date: 02/17/15 Status: Ordered hydrocortisone 2.5% topical cream 1 bc, Topical, TID, # 30 g, 1 Refill(s), Pharmacy: [facility] Start Date: 04/20/15 Status: Ordered lutein 20 mg oral tablet 20 mg 1 tabs, Oral, Daily, # 30 tabs, 0 Refill(s) Start Date: 03/18/14 Status: Ordered magnesium oxide 400 mg (241.3 mg elemental magnesium) oral tablet 800 mg 2 tabs, Oral, Daily, # 60 tabs, 3 Refill(s), Pharmacy: [facility] , 2 tabs Oral Daily Start Date: 08/25/14 Status: Ordered metoprolol tartrate 25 mg oral tablet 25 mg 1 tabs, Oral, BID, # 180 tabs, 1 Refill(s), Pharmacy: [facility] Start Date: 02/17/15 Stop Date: 08/16/15 Status: Ordered multivitamin 1 tabs, Oral, qPM, 0 Refill(s) Start Date: 03/18/14 Status: Ordered [place] 5 mg-325 mg oral tablet 1 -2 tabs, Oral, q4hr, Pain Moderate (4-6), 0 Refill(s) Start Date: 03/13/15 Status: Ordered omega-3 polyunsaturated fatty acids oral capsule 1 caps, Oral, Daily, # 100 caps, 0 Refill(s) Start Date: 03/11/15 Status: Ordered potassium chloride 20 mEq oral tablet, extended release 20 mEq 1 tabs, Oral, Daily, # 30 tabs, 3 Refill(s), Pharmacy: [facility] , 1 tabs Oral Daily Start Date: 12/16/14 Status: Ordered Vitamin C 500 mg, Oral, qPM, 0 Refill(s) Start Date: 07/19/14 Status: Ordered Results Urinalysis Most recent to 1 oldest [Reference Range]: UA Color Yellow (12/02/14 1:58 PM) UA Appear Turbid *ABN* (12/02/14 1:58 PM) UA pH [5.0-8.0] 6.0 (12/02/14 1:58 PM) UA Leuk Est Trace [Negative] *ABN* (12/02/14 1:58 PM) UA Nitrite Negative [Negative] (12/02/14 1:58 PM) UA Protein Negative [Negative] (12/02/14 1:58 PM) UA Glucose Negative [Negative] (12/02/14 1:58 PM) UA Ketones Negative [Negative] (12/02/14 1:58 PM) UA Urobilinogen 0.2 mg/dL [<1.0 mg/dL] (12/02/14 1:58 PM) UA Bili [Negative] Negative (12/02/14 1:58 PM) UA Blood [Negative] Negative (12/02/14 1:58 PM) UA Spec Grav 1.025 [1.003-1.030] (12/02/14 1:58 PM) Type Voided (12/02/14 1:58 PM) UA WBC [0-4] 0-2 (12/02/14 1:58 PM) UA RBC [0-4] 0-4 (12/02/14 1:58 PM) Epithelial Cells 0-2 (12/02/14 1:58 PM) UA Bacteria Numerous *ABN* (12/02/14 1:58 PM) Crystals Ca Ox (12/02/14 1:58 PM) UA Hyal Cast [0-3] 4-6 *ABN* (12/02/14 1:58 PM) UA Mucous Present (12/02/14 1:58 PM) Microbiology Reports TEST: Urine Culture STATUS: Auth (Verified) BODY SITE: SOURCE: Urine COLLECTED DATE/TIME: 12/02/14 1:58 PM Urine Culture Normal urogenital/skin jillian present Immunizations Vaccine Date Refusal Reason influenza virus [...] Author: Frandy Arzate MD Date: Family Medicine Colonoscopy A colonoscopy is an exam to look at the entire large intestine (colon). This exam can help find problems such as tumors, polyps, inflammation, and areas of bleeding. The exam takes about 1 hour. LET YOUR HEALTH CARE PROVIDER KNOW ABOUT: Any allergies you have. All medicines you are taking, including vitamins, herbs, eye drops, creams , and nnrk-ooo-kgrwrse medicines. Previous problems you or members of your family have had with the use of anesthetics. Any blood disorders you have. Previous surgeries you have had. Medical conditions you have. RISKS AND COMPLICATIONS Generally, this is a safe procedure. However, as with any procedure, complications can occur. Possible complications include: Bleeding. Tearing or rupture of the colon wall. Reaction to medicines given during the exam. Infection (rare). BEFORE THE PROCEDURE Ask your health care provider about changing or stopping your regular medicines. You may be prescribed an oral bowel prep. This involves drinking a large amount of medicated liquid, starting the day before your procedure. The liquid will cause you to have multiple loose stools until your stool is almost clear or light green. This cleans out your colon in preparation for the procedure. Do not eat or drink anything else once you have started the bowel prep, unless your health care provider tells you it is safe to do so. Arrange for someone to drive you home after the procedure. PROCEDURE You will be given medicine to help you relax (sedative). You will lie on your side with your knees bent. A long, flexible tube with a light and camera on the end (colonoscope) will be inserted through the rectum and into the colon. The camera sends video back to a computer screen as it moves through the colon. The colonoscope also releases carbon dioxide gas to inflate the colon. This helps your health care provider see the area better. During the exam, your health care provider may take a small tissue sample ( biopsy) to be examined under a microscope if any abnormalities are found. The exam is finished when the entire colon has been viewed. AFTER THE PROCEDURE Do not drive for 24 hours after the exam. You may have a small amount of blood in your stool. You may pass moderate amounts of gas and have mild abdominal cramping or bloating. This is caused by the gas used to inflate your colon during the exam. Ask when your test results will be ready and how you will get your results. Make sure you get your test results. Document Released: 02/02/2001 Document Revised: 11/26/2013 Document Reviewed: [facility] Patient Information 2015 [employer]. This information is not intended to replace advice given to you by your health care provider. Make sure you discuss any questions you have with your health care provider. No follow up information was provided. Extracted from: Title: Office Visit Note Author: Frandy Arzate MD Date: 12/02/14 Assessment/Plan [place] of rectum This issue is stable and appropriate refills, lab, and f/u have been discussed. H/O ileostomy This issue is stable and appropriate refills, lab, and f/u have been discussed. Hematuria UA pending and recheck again in 14 days. If any blood remains she has been stronglyencouraged to see Urology. The patient was offered and/or directed to a specialist for this issue. The patient refused or at least deferred any referral at this time. Hypertension This issue is stable and appropriate refills, lab, and f/u have been discussed. The patient reports their blood pressure has been stable at home and is not having any significant or related problems. There has been no chest pain, chest pressure, soa/vogel.
--- OUTSIDE RECORDS SUMMARY | 2016-07-13 09:35 | XMS REPORT | Referral Summary ---
Author Author [facility] Organization [facility] Address Unknown Phone Unavailable Care Team Providers Care Snuff Grinder Name Role Phone Noah Arzate Primary Care Physician [phone] Encounter [facility] [id number] Date(s): 05/14/15 - 05/14/15 [facility] [address] [place], [place] [address] Discharge Diagnosis: Neoplasm of uncertain behavior of skin Discharge Diagnosis: Actinic keratosis Discharge Diagnosis: Seborrheic keratosis Discharge Diagnosis: Inflamed seborrheic keratosis Discharge Disposition: 01-Home or Self Care Attending Physician: Don Mccarty MD Admitting Physician: Don Mccarty MD Referring Physician: Frandy Arzate MD Vital [...] Daily, # 90 tabs, 0 Refill(s), Pharmacy: [facility], 1 tabs Oral Daily,x90 days Start Date: 12/10/14 Stop Date: 03/10/15 Status: Ordered aspirin 81 mg oral tablet 81 mg 1 tabs, Oral, qPM, # 30 tabs, 0 Refill(s) Start Date: 03/18/14 Status: Ordered Calcium 600+D 1 tabs, Oral, Daily, 0 Refill(s) Start Date: 03/18/14 Status: Ordered Cipro 500 mg oral tablet 500 mg 1 tabs, Oral, q12hr, # 14 tabs, 0 Refill(s), Pharmacy: [facility] , 1 tabs Oral q12hr,x7 days Start Date: 05/04/15 Stop Date: 05/11/15 Status: Ordered Claritin 10 mg, Oral, Daily, as needed for allergy symptoms, 0 Refill(s) Start Date: 06/24/14 Status: Ordered Fish Oil 1200 mg oral capsule 1,200 mg 1 caps, Oral, qPM, 0 Refill(s) Start Date: 03/18/14 Status: Ordered Flagyl 500 mg oral tablet 500 mg 1 tabs, Oral, q12hr, # 14 tabs, 0 Refill(s), Pharmacy: [facility] , 1 tabs Oral q12hr,x7 days Start Date: 05/04/15 Stop Date: 05/11/15 Status: Ordered Flonase 50 mcg/inh nasal spray 2 sprays, Nasal, Daily, Seasonal Allergy Symptoms, 0 Refill(s) Start Date: 06/24/14 Status: Ordered hydrochlorothiazide 25 mg oral tablet 25 mg 1 tabs, Oral, Daily, # 90 tabs, 1 Refill(s), Pharmacy: [facility], 1 tabs Oral Daily Start Date: 02/17/15 Status: Ordered hydrocortisone 2.5% topical cream 1 bc, Topical, TID, # 30 g, 1 Refill(s), Pharmacy: [facility] Start Date: 04/20/15 Status: Ordered lutein 20 mg oral tablet 20 mg 1 tabs, Oral, Daily, # 30 tabs, 0 Refill(s) Start Date: 03/18/14 Status: Ordered magnesium oxide 400 mg (241.3 mg elemental magnesium) oral tablet 800 mg 2 tabs, Oral, Daily, # 60 tabs, 3 Refill(s), Pharmacy: [facility] , 2 tabs Oral Daily Start Date: 08/25/14 Status: Ordered metoprolol tartrate 25 mg oral tablet 25 mg 1 tabs, Oral, BID, # 180 tabs, 1 Refill(s), Pharmacy: [facility] Start Date: 02/17/15 Stop Date: 08/16/15 Status: Ordered multivitamin 1 tabs, Oral, qPM, 0 Refill(s) Start Date: 03/18/14 Status: Ordered [place] 5 mg-325 mg oral tablet 1 -2 tabs, Oral, q4hr, Pain Moderate (4-6), 0 Refill(s) Start Date: 03/13/15 Status: Ordered omega-3 polyunsaturated fatty acids oral capsule 1 caps, Oral, Daily, # 100 caps, 0 Refill(s) Start Date: 03/11/15 Status: Ordered potassium chloride 20 mEq oral tablet, extended release 20 mEq 1 tabs, Oral, Daily, # 30 tabs, 3 Refill(s), Pharmacy: [facility] , 1 tabs Oral Daily Start Date: 12/16/14 Status: Ordered Vitamin C 500 mg, Oral, qPM, 0 Refill(s) Start Date: 07/19/14 Status: Ordered Results No data available for this section Immunizations Vaccine Date Refusal Reason influenza virus vaccine, inactivated 11/24/14 pneumococcal 23-polyvalent vaccine 03/19/15 Procedures Procedure Date Related Diagnosis Body Site Biopsy of skin, subcutaneous tissue and/or 05/14/15 mucous membrane (including simple closure), unless otherwise listed; each separate/additional lesion (List separately in addition to code for primary procedure) Biopsy of skin, subcutaneous tissue and/or 05/14/15 mucous membrane (including simple closure), unless otherwise listed; single lesion Destruction (eg, laser surgery, 05/14/15 electrosurgery, cryosurgery, chemosurgery, surgical curettement), of benign lesions other than skin tags or cutaneous vascular proliferative lesions; up to 14 lesions Destruction (eg, laser surgery, 05/14/15 electrosurgery, cryosurgery, chemosurgery, surgical curettement), premalignant lesions (eg, actinic keratoses); first lesion Destruction (eg, laser surgery, 05/14/15 electrosurgery, cryosurgery, chemosurgery, surgical curettement), premalignant lesions (eg, actinic keratoses); second through 14 lesions, each (List separately in addition to code for first lesion) Closure Ileostomy1 03/11/15 LEFT L2-3/L4-5 TRANSFORAMINAL 11/11/14 [...] Extracted from: Title: Office Visit Note Author: Don Mccarty MD Date: 05/14/15 Assessment/Plan 1.Neoplasm of uncertain behavior of skin 1. -Location: Left christian -DDX: Macular SK vs Lentigo maligna -Shave biopsy today -Signed consent was obtained prior to the procedure. A photograph was obtained. The area was cleansed with an alcohol pad and 2 cc of 1% lidocaine with epinephrine was injected for local anesthesia. The lesion was shaved using a dermablade and aluminum chloride was utilized for hemostasis. Vaseline ointment and a bandage was applied. The pt tolerated the procedure well and left the clinic in excellent condition. 2. -Location: R back -DDX: Inflamed nevus vs ISK vs other -Shave biopsy today -Signed consent was obtained prior to the procedure. A photograph was obtained. The area was cleansed with an alcohol pad and 2 cc of 1% lidocaine with epinephrine was injected for local anesthesia. The lesion was shaved using a dermablade and aluminum chloride was utilized for hemostasis. Vaseline ointment and a bandage was applied. The pt tolerated the procedure well and left the clinic in excellent condition. 3. -Location: R shoulder -DDX: Dysplastic nevus vs melanoma -Shave biopsy today -Signed consent was obtained prior to the procedure. A photograph was obtained. The area was cleansed with an alcohol pad and 2 cc of 1% lidocaine with epinephrine was injected for local anesthesia. The lesion was shaved using a dermablade and aluminum chloride was utilized for hemostasis. Vaseline ointment and a bandage was applied. The pt tolerated the procedure well and left the clinic in excellent condition. Ordered: Biopsy Of Skin, Each Add'L Lesion 05439 Biopsy Of Skin, Single Lesion 48472 Office Visit Level 2 New 25230 2.Actinic keratosis -2 lesions; see physical examination above for locations -Cryotherapy x2 cycle(s) (10 second freeze-thaw cycle) -Encouraged monthly skin self-examination and warning signs of non-melanoma skin cancer discussed -Discussed proper sun protective behavior including: avoiding the hours of peak sun exposure (10am-2pm), wearing sunscreen SPF 30 or higher and reapplying every 2 hours for prolonged sun exposure, and wearing sun protective clothing including a wide brimmed hat -Return to clinic in3 months -Encouraged pt to schedule an earlier f/u appointment if concerning lesions develop or if treated lesions do not resolve in 6 weeks Ordered: Destruction premalignant lesion 1st 78845 Destruction premalignant lesion 2-14, Each 44836 Office Visit Level 2 New 97252 3.Inflamed seborrheic keratosis -Reassurance regarding the benign nature of this lesion -Cryotherapy x2 cycles (10 second freeze-thaw cycle),8 lesions, see physical examination for locations -Discussed ABCDEs of melanoma and recommended monthly skin self-examination -Discussed warning signs of NMSC -Recommended pt schedule a clinic appointment for anyconcerning lesionsor if treated lesions do not resolve in 6 weeks. Ordered: Destruction, Of Flat Warts, Molluscum Contagiosum, Or Milia; Up To 14 Lesions 90446 Office Visit Level 2 New 27736 4.Seborrheic keratosis -Reassurance regarding the benign nature of these lesions -Discussed ABCDEs of melanoma and recommended monthly skin self-examination -Recommended pt schedule a clinic appointment for anyconcerning lesions Ordered: Office Visit Level 2 New 63707
--- OUTSIDE RECORDS SUMMARY | 2016-07-13 09:35 | XMS REPORT | Continuity of Care Document ---
Author Author [facility], [facility] Address [address] [place] [address] Phone Care Team Providers Care Pipeline Integrity Engineer Name Role Phone Roxanna Gonzalez PP Unavailable Payers Payer name Insurance type Covered republican ID Authorization(s) Unknown Problems Condition Effective Dates (start - stop) Clinical Status Pain in joint involving pelvic region and thigh - *Chronic Enthesopathy of hip region - *Chronic Hypertension, Benign - *Chronic Hypertension, Unspecified - *Chronic Hypertension, Benign - *Chronic Hypertension, Benign - *Poor control Upper Respiratory Infection, Acute - *Acute Other acute sinusitis - *Acute Dizziness - *Acute HYPERTENSION NOS - Family History Family Member Diagnosis Age At Onset Status Mother (Unknown) Cancer - colon Yes Father (Unknown) CVA (Stroke) Yes Social History Social History Element Description Quantity alcohol 1 beer Allergies, Adverse Reactions, Alerts Substance Reaction Severity Status MORPHINE Itching Unknown HYDROCHLOROTHIAZIDE DIARRHEA Unknown Medications Medication Instructions Dosage Effective Dates (start - stop) Status estradiol 1 mg tablet take 1 tablet (1MG) by oral route every day 1 MG - Active chlorthalidone 15 mg tablet take 12.5 mg once a day - Active ibuprofen 400 mg tablet take 1 tablet (400MG) by oral route every 4 - 6 hours as needed 400 MG - Active CORAL CALCIUM (unknown strength) take 1 Table(1500mg)t by Oral route every day - Active [place] 3-6-9 1,200 mg (400 [id number]) capsule take 1 Capsule by Oral route every day 0 - Active lutein 20 mg tablet take 1 Tablet by Oral route every day 0 - Active aspirin 81 mg tablet,delayed release take 1 tablet (81MG) by oral route every day 81 MG - Active multivitamin tablet take 1 Tablet by Oral route every day 0 - Active VITAMIN B-1 (unknown strength) take 1 Tablet by Oral route every day - Active lisinopril 30 mg tablet take 1 tablet (30MG) by oral route every day 30 MG - Active Cardura 8 mg tablet Take 1 tablet by mouth every day. - Active amlodipine 10 mg tablet take 1 tablet (10MG) by oral route every day 10 MG - Active Immunizations Vaccine Date Status Comments Unknown Results Test Name Date and Time Measure Units Reference Range Abnormal Flag Comments Unknown Vital Signs Date / Time: Height Weight Pulse Rate Blood Pressure Temperature /09:22:00 67.50 in 203.50 lbs Procedures Procedure Date Unknown Encounters Encounter Location Date Patient Visit [facility] Ortho Patient Visit [facility] Patient Visit [facility] Patient Visit [facility] Patient Visit [facility] Card Patient Visit [facility] Mur Card Patient Visit [facility] Care Patient Visit Conversion Advance Directives Directive Effective Date Unknown
--- OUTSIDE RECORDS SUMMARY | 2016-07-13 09:35 | XMS REPORT | Continuity of Care Document ---
Demographics Preferred Language Unknown Marital Status Unknown Protestant Affiliation Unknown Race Unknown Ethnic Group Unknown Author Author [facility] Organization [facility] Address Unknown Phone Unavailable Allergies Medications Problems Procedures Results Encounters ACCT No. Visit Date/Time Discharge Status Pt. Type Provider Facility Loc./Unit Complaint [id number] 03/11/2015 17:47:00 [facility] Unknown
--- OUTSIDE RECORDS SUMMARY | 2016-07-13 09:36 | XMS REPORT | Referral Summary ---
Author Author [facility] Organization [facility] Address Unknown Phone Unavailable Care Team Providers Care Core Paster Name Role Phone Noah Arzate Primary Care Physician [phone] Encounter [facility] Date(s): 06/24/14 - 06/24/[address] [facility] [address], [place] [address] Final: PREOPERATIVE CARDIOVASCULAR EXAMINATION Discharge Disposition: 01-Home or Self Care Attending Physician: Rick Shearer MD Vital Signs No [...] tabs Oral TID, # 90 tabs, eRx: [facility], 1 tabs Oral TID Start Date: 10/14/14 [...] Chlorthalidone, # 90 tabs, 0 Refill(s), Pharmacy: [facility], 1 tabs Oral Daily,Instr:APPT in 30 [...] Daily, # 60 tabs, 3 Refill(s), Pharmacy: [facility] , 2 tabs Oral [...] # 30 tabs, 3 Refill(s), Pharmacy: [facility] , 1 tabs Oral [...]
--- OUTSIDE RECORDS SUMMARY | 2016-07-13 09:36 | XMS REPORT | Referral Summary ---
Author Author [facility] Organization [facility] Address Unknown Phone Unavailable Care Team Providers Care Shift Superintendent Name Role Phone Noah Arzate Primary Care Physician [phone] Encounter VC Date(s): 07/31/14 - 08/07/14 [facility] [address] [place] [address] [phone] Final: ORTHOSTATIC HYPOTENSION Final: PNEUMONIA, ORGANISM UNSPECIFIED Final: Acute Kidney Failure, Unspecified Final: STENOSIS OF RECTUM AND ANUS Final: UNSPECIFIED ESSENTIAL HYPERTENSION Final: Dehydration Final: OSTEOARTHROSIS, UNSPECIFIED WHETHER GENERALIZED OR LOCALIZED, INVOLVING UNSPECIFIED SITE Final: IRON DEFICIENCY ANEMIA, UNSPECIFIED Final: ILEOSTOMY STATUS Final: Personal History of Tobacco Use Discharge Disposition: 06-Home with Home Health Care Attending Physician: Marquita Pardo MD Admitting Physician: Marquita Pardo MD Vital Signs Most recent to 1 oldest [Reference Range]: Temperature Oral 37.1 degC [35.8-37.3 degC] (08/07/14 3:52 PM) Peripheral Pulse 68 bpm Rate [60-100 bpm] (08/07/14 3:52 PM) Respiratory Rate 16 br/min [14-20 br/min] (08/07/14 3:52 PM) Blood Pressure 120/78 mmHg [90-140/60-90 mmHg] (08/07/14 3:52 PM) SpO2 99 % (08/07/14 3:52 PM) Problem List Condition Effective Dates Status Health Status Informant Acute Resolved pain(Confirmed) [place] of Active rectum(Confirmed) Anemia(Confirmed) Active At risk of pressure Resolved sore(Confirmed) Bowel Active dysfunction(Confirme d)1 ENTHESOPATHY OF HIP Active REGION(Confirmed) Fluid Resolved imbalance(Confirmed) 2 H/O Active ileostomy(Confirmed) Hypertension(Confirm Active ed) Impaired gas Resolved exchange(Confirmed)3 Impaired skin Resolved integrity(Confirmed) 4 Lumbar Active radiculopathy(Confir med) Cedillo Active syndrome(Confirmed) [...] Daily, # 90 tabs, 0 Refill(s), Pharmacy: [facility], 1 tabs Oral Daily,x90 days Start Date: 12/10/14 Stop Date: 03/10/15 Status: Ordered aspirin 81 mg oral tablet 81 mg 1 tabs, Oral, qPM, # 30 tabs, 0 Refill(s) Start Date: 03/18/14 Status: Ordered Bystolic 5 mg oral tablet 2.5 mg 0.5 tabs, Oral, Daily, # 15 tabs, 0 Refill(s), Pharmacy: [facility], 0.5 tabs Oral Daily Start Date: 02/03/15 Status: Ordered Calcium 600+D 1 tabs, Oral, Daily, 0 Refill(s) Start Date: 03/18/14 Status: Ordered chlorthalidone 25 mg oral tablet 25 mg 1 tabs, Oral, Daily, # 90 tabs, 0 Refill(s), Pharmacy: [facility], 1 tabs Oral Daily,x90 days Start [...] Chlorthalidone, # 90 tabs, 0 Refill(s), Pharmacy: [facility], 1 tabs Oral Daily,Instr:APPT in 30 DAYS [...] Daily, # 60 tabs, 3 Refill(s), Pharmacy: [facility] , 2 tabs Oral Daily Start Date: 08/25/14 Status: Ordered Metamucil Oral, 5 pills tid, 0 Refill(s) Start Date: 10/20/14 Status: Ordered Metamucil 3.4 g 1 packets, Oral, TID, 0 Refill(s) Start Date: 08/05/14 Status: Ordered metoprolol tartrate 25 mg oral tablet 25 mg 1 tabs, Oral, BID, Pt is to call with report in 14 day., # 28 tabs, 0 Refill(s), Pharmacy: [facility] Start Date: 02/04/15 Status: Ordered multivitamin 1 tabs, Oral, qPM, 0 Refill(s) Start Date: 03/18/14 Status: Ordered potassium chloride 20 mEq oral tablet, extended release 20 mEq 1 tabs, Oral, Daily, # 30 tabs, 3 Refill(s), Pharmacy: [facility] , 1 tabs Oral Daily Start Date: 12/16/14 Status: Ordered Vitamin C 500 mg, Oral, qPM, 0 Refill(s) Start Date: 07/19/14 Status: Ordered Results Hematology Most recent to 1 oldest [Reference Range]: WBC [4.8-10.8 13.9 10*3/uL 10*3/uL] *HI* (08/07/14 6:21 AM) RBC [4.00-5.20 2.45 10*6/uL 10*6/uL] *LOW* (08/07/14 6:21 AM) Hgb [12.0-16.0 7.4 gm/dL gm/dL] *LOW* (08/07/14 6:21 AM) Hct [37.0-47.0 %] 22.4 % *LOW* (08/07/14 6:21 AM) MCV [82.0-99.0 fL] 91.4 fL (08/07/14 6:21 AM) MCH [27.0-32.0 pg] 30.2 pg (08/07/14 6:21 AM) MCHC [32.0-36.0 33.0 gm/dL gm/dL] (08/07/14 6:21 AM) RDW [11.5-14.5 %] 15.6 % *HI* (08/07/14 6:21 AM) Platelet [150-400 479 10*3/uL 10*3/uL] *HI* (08/07/14 6:21 AM) MPV [9.4-12.4 fL] 8.9 fL *LOW* (08/07/14 6:21 AM) Reticulocyte 1.7 % [0.6-2.5 %] (08/01/14 5:27 AM) Chemistry Most recent to 1 oldest [Reference Range]: Sodium Lvl [136-144 131 mEq/L mEq/L] *LOW* (08/07/14 6:21 AM) Potassium Lvl 4.8 mEq/L [3.6-5.1 mEq/L] (08/07/14 6:21 AM) Chloride [99-109 99 mEq/L mEq/L] (08/07/14 6:21 AM) CO2 [22-32 mEq/L] 25 mEq/L (08/07/14 6:21 AM) AGAP [3-20] 7 (08/07/14 6:21 AM) BUN [4-20 mg/dL] 9 mg/dL (08/07/14 6:21 AM) Glucose Lvl [70-100 105 mg/dL mg/dL] *HI* (08/07/14 6:21 AM) Creatinine Lvl 0.98 mg/dL [0.44-1.03 mg/dL] (08/07/14 6:21 AM) eGFR [>60] 56 1 *ABN* (08/07/14 6:21 AM) Calcium Lvl 8.2 mg/dL [8.6-10.0 mg/dL] *LOW* (08/07/14 6:21 AM) Albumin Lvl [3.5-4.8 1.9 gm/dL gm/dL] *LOW* (08/06/14 7:07 AM) Total Protein 6.1 gm/dL [6.1-7.9 gm/dL] (07/31/14 8:17 PM) Globulin [1.9-4.3 3.7 gm/dL gm/dL] (07/31/14 8:17 PM) ALT [14-54 U/L] 33 U/L (07/31/14 8:17 PM) AST [15-41 U/L] 24 U/L (07/31/14 8:17 PM) Alk Phos [26-104 135 U/L U/L] *HI* (07/31/14 8:17 PM) Bili Total [0.2-1.2 0.8 mg/dL 2 mg/dL] (07/31/14 8:17 PM) Iron [50-170 mcg/dL] 5 mcg/dL *LOW* (08/01/14 5:27 AM) TIBC [286-569 238 mcg/dL mcg/dL] *LOW* (08/01/14 5:27 AM) Iron Sat [11-46 %] 2 % *LOW* (08/01/14 5:27 AM) Transferrin [192-382 160 mg/dL mg/dL] *LOW* (08/01/14 5:27 AM) Magnesium Lvl 1.7 mg/dL [1.8-2.5 mg/dL] *LOW* (08/06/14 7:07 AM) Phosphorus [2.4-4.7 4.4 mg/dL 3 mg/dL] (08/06/14 7:07 AM) Calcium Ionized 1.24 mmol/L [1.19-1.41 mmol/L] (08/04/14 11:14 AM) Lactic Acid Lvl 1.2 mEq/L [0.5-2.2 mEq/L] (07/31/14 8:17 PM) Vitamin B12 Lvl 549 pg/mL [213-816 pg/mL] (08/01/14 2:53 PM) Folate Lvl [7.0-31.4 13.9 ng/mL ng/mL] (08/01/14 2:53 PM) Blood Glucose, 102 mg/dL Capillary [70-100 *HI* mg/dL] (08/04/14 7:28 AM) Procalcitonin 0.22 ng/mL 4 [0.00-0.09 ng/mL] *HI* (08/01/14 5:27 AM) 1Result Comment: Multiply eGFR results by 1.21 for race. 2Result Comment: Naproxen, specifically the metabolite O-desmethylnaproxen, may cause spurious elevation in Total Bilirubin levels. 3Result Comment: High dosages of liposomal Amphotericin B (AmBisome) therapy or other drug preparations that use a liposomal envelope to facilitate drug delivery may cause falsely elevated results for phosphorus. 4Result Comment: Normal: <0.1 ng/mL (infants >72 hrs - adults) Suspected Lower Respiratory Tract Infection 0.10-0.25 ng/mL=Low likelihood for bacterial infection; Antibiotics discouraged. >0.25 ng/mL=Increased likelihood for bacterial infection; Antibiotics encouraged. Suspected Sepsis: Strongly consider initiating antibiotics in all unstable patients. 0.10-0.50 ng/mL=Low likelihood for sepsis; Antibiotics discouraged. >0.50 ng/mL=Increased likelihood for sepsis; Antibiotics encouraged. Decisions on antibiotic use should not be based solely on procalcitonin levels. If antibiotics are administered, repeat procalcitonin testing should be obtained every 2-3 days to consider early antibiotic cessation. PCT is a dynamic biomarker and most useful when trends are analyzed over time in accompaniment with other clinical data. Interpretation should be based upon clinical context and algorithms. Urinalysis Most recent to 1 oldest [Reference Range]: UA Color Lt Yellow (08/01/14 12:47 PM) UA Appear Clear (08/01/14 12:47 PM) UA pH [5.0-8.0] 5.0 (08/01/14 12:47 PM) UA Leuk Est Trace [Negative] *ABN* (08/01/14 12:47 PM) UA Nitrite Negative [Negative] (08/01/14 12:47 PM) UA Protein Trace [Negative] *ABN* (08/01/14 12:47 PM) UA Glucose Negative [Negative] (08/01/14 12:47 PM) UA Ketones Negative [Negative] (08/01/14 12:47 PM) UA Urobilinogen Negative [<1.0] (08/01/14 12:47 PM) UA Bili [Negative] Negative (08/01/14 12:47 PM) UA Blood [Negative] Pos 1+ *ABN* (08/01/14 12:47 PM) UA Spec Grav 1.012 [1.003-1.030] (08/01/14 12:47 PM) Type Clean Catch (08/01/14 12:47 PM) UA WBC [0-4] 0-2 (08/01/14 12:47 PM) UA RBC [0-2] 2-5 (08/01/14 12:47 PM) Epithelial Cells 5-10 (07/31/14 10:12 PM) UA Bacteria Occasional *ABN* (08/01/14 12:47 PM) UA Hyal Cast [0-3] 1-3 (07/31/14 10:12 PM) UA Mucous Present (07/31/14 10:12 PM) Microbiology Reports TEST: Blood Culture STATUS: Auth (Verified) BODY SITE: SOURCE: Blood COLLECTED DATE/TIME: 08/03/14 7:45 PM Blood Culture No growth after 5 days of incubation. TEST: Blood Culture STATUS: Auth (Verified) BODY SITE: SOURCE: Blood COLLECTED DATE/TIME: 08/03/14 7:38 PM Blood Culture No growth after 5 days of incubation. TEST: Respiratory Virus Panel - PCR STATUS: Auth (Verified) BODY SITE: SOURCE: Nasopharyngeal Swab COLLECTED DATE/TIME: 08/03/14 1:53 AM Respiratory Virus Panel - PCR Negative for all strains tested. . Specimen tested for the following FDA approved viral targets: Influenza A, Influenza A subtype H1, Influenza A subtype H3, Influenza A 2009 H1N1, Influenza B, Respiratory Syncytial Virus subtype A, Respiratory Syncytial Virus subtype B, Adenovirus B/E, Adenovirus C, Rhinovirus, Parainfluenza virus 1, Parainfluenza virus 2, Parainfluenza virus 3, and Human Metapneumovirus. . The following viral targets were also tested. Although not FDA approved, these targets have been validated by our laboratory for clinical diagnosis: Parainfluenza virus 4, Coronavirus 229E, Coronavirus NL63, Coronavirus HKU1, and Coronavirus OC43. Immunizations Vaccine Date Refusal Reason influenza virus [...]
--- OUTSIDE RECORDS SUMMARY | 2016-07-13 09:36 | XMS REPORT | Referral Summary ---
Author Author [facility] Organization [facility] Address Unknown Phone Unavailable Care Team Providers Care Underwear Cutter Name Role Phone Leilanimariela Noah Primary Care Physician [phone] Encounter VC Date(s): 01/28/15 - 01/28/15 [facility] [address] [place], [place] [address] Discharge Diagnosis: Lumbar spinal stenosis Discharge Diagnosis: Trochanteric bursitis, left hip Discharge Diagnosis: Lumbar radiculopathy Discharge Diagnosis: Lumbar disc herniation Discharge Disposition: 01-Home or Self Care Attending Physician: Jose Francisco Admitting Physician: Jose Francisco Referring Physician: Roxanna Gonzalez DO Vital Signs [...] tabs, 0 Refill(s), Pharmacy: [facility], 1 tabs Oral Daily,x90 days Start [...] tabs, 0 Refill(s), Pharmacy: [facility], 1 tabs Oral Daily,x90 days Start Date: 11/24/14 Stop Date: 02/22/15 Status: Ordered Claritin 10 mg, Oral, Daily, as needed for allergy symptoms, 0 Refill(s) Start Date: 06/24/14 Status: Ordered ferrous sulfate 325 mg (65 mg elemental iron) oral delayed release tablet See Instructions, 1 tabs Oral TID, # 90 tabs, eRx: [facility], 1 tabs Oral TID Start [...] Chlorthalidone, # 90 tabs, 0 Refill(s), Pharmacy: [facility], 1 tabs Oral Daily,Instr:APPT in [...] Daily, # 60 tabs, 3 Refill(s), Pharmacy: [facility] , 2 tabs Oral Daily Start [...] Daily, # 30 tabs, 3 Refill(s), Pharmacy: [facility] , 1 tabs Oral Daily Start Date: 12/16/14 Status: Ordered Vitamin C 500 mg, Oral, qPM, 0 Refill(s) Start Date: 07/19/14 Status: Ordered Results No data available for this section Immunizations Vaccine Date Refusal Reason influenza virus vaccine, inactivated 11/24/14 Procedures Procedure Date Related Diagnosis Body Site LEFT L2-3/L4-5 TRANSFORAMINAL 11/11/14 Laparotomy Exploratory1 5/13/15 Cystoscopy Ureteral Stent Insertion2 06/29/14 Ileostomy Loop3 [...] Extracted from: Title: Office Visit Note Author: Jose Francisco Date: 01/28/15 Assessment/Plan Lumbar disc herniation Lumbar radiculopathy Lumbar spinal stenosis Trochanteric bursitis, left hip I did review with the patient her previous lumbar spine MRI from 03/10/2014. She does have multiple levels of facet arthropathy degenerative discs. She has a disc herniation L4 5 with moderate to moderately severe bilateral foraminal encroachment moderate central stenosis, L3 4mild disc herniation with moderate right and mild left foraminal encroachment moderate central stenosis. She has had improvement following her injection treatments. She really is not having any significant pain symptoms at this time. There is no indication for any further injections although might need to consider them in the futureif hersymptoms recur. She has no myelopathic signs. She does not want to consider any surgical interventions. She does understand that if she experienced a focal weakness or true loss of bowel or bladder controlshe should seek urgent medical attention. She would just follow-up here on an as- needed basis. She was encouraged to continue her walking home exercise and stretching but be cautious to avoid activities such as heavy lifting repetitive bending stooping that may aggravate her symptoms. She voiced understanding and agrees to the above plans. The above was in discussion with Dr. Rasheed.
--- OUTSIDE RECORDS SUMMARY | 2016-07-13 09:36 | XMS REPORT | Referral Summary ---
Author Author [facility] Organization [facility] Address Unknown Phone Unavailable Care Team Providers Care Lifter Name Role Phone Noah Arzate Primary Care Physician [phone] Encounter VC Date(s): 12/02/14 - 12/02/14 [facility], [address] [place] [address] Discharge Disposition: 01-Home or Self [...] Daily, # 90 tabs, 0 Refill(s), Pharmacy: [facility], 1 tabs Oral Daily,x90 days Start Date: 11/24/14 Stop Date: 02/22/15 Status: Ordered Claritin 10 mg, Oral, Daily, as needed for allergy symptoms, 0 Refill(s) Start Date: 06/24/14 Status: Ordered ferrous sulfate 325 mg (65 mg elemental iron) oral delayed release tablet See Instructions, 1 tabs Oral TID, # 90 tabs, eRx: [facility], 1 tabs Oral TID Start [...] Chlorthalidone, # 90 tabs, 0 Refill(s), Pharmacy: [facility], 1 tabs Oral Daily,Instr:APPT in 30 DAYS ; DC Chlorthalidone Start Date: 11/25/14 Status: Ordered Imodium A-D 2 mg oral tablet 4 mg, Oral, q6hr, 0 Refill(s) Start Date: 08/05/14 Status: Ordered Lomotil 2.5 mg-0.025 mg oral tablet 1 tabs, Oral, q6hr, # 100 tabs, 3 Refill(s) Start Date: 09/01/14 Status: Ordered lutein 20 mg oral tablet 20 mg 1 tabs, Oral, Daily, # 30 tabs, 0 Refill(s) Start Date: 03/18/14 Status: Ordered magnesium oxide 400 mg (241.3 mg elemental magnesium) oral tablet 800 mg 2 tabs, Oral, Daily, # 60 tabs, 3 Refill(s), Pharmacy: [facility] , 2 tabs Oral Daily [...] Daily, # 30 tabs, 3 Refill(s), Pharmacy: [facility] , 1 tabs Oral Daily [...] PM) UA Mucous Present (12/02/14 1:58 PM) Immunizations Vaccine Date Refusal Reason influenza [...] vitamins, herbs, eye drops, creams , and [id number] medicines. Previous problems you or members of [...] Released: 02/02/2001 Document Revised: 11/26/2013 Document Reviewed: [facility] Patient Information 2015 [employer]. This information is not intended to replace [...]
--- OUTSIDE RECORDS SUMMARY | 2016-07-13 09:36 | XMS REPORT | Referral Summary ---
Author Author [facility] Organization [facility] Address Unknown Phone Unavailable Care Team Providers Care Relocation Specialist Name Role Phone LeilanimarielaNoah Primary Care Physician [phone] Encounter VC Date(s): 11/11/14 - 11/11/14 [facility] [address] [place], [place] [address] Discharge Diagnosis: Lumbar spinal stenosis Discharge Diagnosis: Lumbar disc herniation Discharge Diagnosis: THORACIC OR LUMBOSACRAL NEURITIS OR RADICULITIS, UNSPECIFIED Discharge Disposition: 01-Home or Self Care Attending Physician: Neo Rasheed MD Admitting Physician: Neo Rasheed MD Referring Physician: Roxanna Gonzalez DO Vital Signs Most recent to 1 oldest [Reference Range]: Peripheral Pulse 62 bpm Rate [60-100 bpm] (11/11/14 7:58 AM) Respiratory Rate 12 br/min [14-20 br/min] *LOW* (11/11/14 7:58 AM) Blood Pressure 165/132 mmHg [90-140/60-90 mmHg] *HI* (11/11/14 7:58 AM) SpO2 100 % (11/11/14 7:58 AM) Problem List Condition Effective Dates Status Health [...] Daily, # 90 tabs, 0 Refill(s), Pharmacy: [facility], 1 tabs Oral Daily,x90 [...] q12hr, # 42 tabs, 0 Refill(s), Pharmacy: [facility] , 1 tabs Oral [...] q12hr, # 42 tabs, 0 Refill(s), Pharmacy: [facility] , 1 tabs Oral q12hr,x21 days Start Date: 05/17/15 Stop Date: 06/07/15 Status: Ordered Flonase 50 mcg/inh nasal spray 2 sprays, Nasal, Daily, Seasonal Allergy Symptoms, 0 Refill(s) Start Date: 06/24/14 Status: Ordered hydrochlorothiazide 25 mg oral tablet 25 mg 1 tabs, Oral, Daily, # 90 tabs, 1 Refill(s), Pharmacy: [facility], 1 tabs Oral Daily Start Date: 02/17/15 Status: Ordered hydrocortisone 2.5% topical cream 1 bc, Topical, TID, # 30 g, 1 Refill(s), Pharmacy: [facility] Start Date: 04/20/15 Status: Ordered lutein 20 mg oral tablet 20 mg 1 tabs, Oral, Daily, # 30 tabs, 0 Refill(s) Start Date: 03/18/14 Status: Ordered magnesium oxide 400 mg (241.3 mg elemental magnesium) oral tablet 800 mg 2 tabs, Oral, Daily, # 60 tabs, 3 Refill(s), Pharmacy: [facility] , 2 tabs Oral Daily Start Date: 08/25/14 Status: Ordered metoprolol tartrate 25 mg oral tablet 25 mg 1 tabs, Oral, BID, # 180 tabs, 1 Refill(s), Pharmacy: [facility] Start Date: 02/17/15 Stop Date: 08/16/15 Status: Ordered multivitamin 1 tabs, Oral, qPM, 0 Refill(s) Start Date: 03/18/14 Status: Ordered [place] 5 mg-325 mg oral tablet 1 -2 tabs, Oral, q4hr, Pain Moderate (4-6), 0 Refill(s) Start Date: 03/13/15 Status: Ordered omega-3 polyunsaturated fatty acids oral capsule 1 caps, Oral, Daily, # 100 caps, 0 Refill(s) Start Date: 03/11/15 Status: Ordered potassium chloride 20 mEq oral tablet, extended release 20 mEq 1 tabs, Oral, Daily, # 30 tabs, 3 Refill(s), Pharmacy: [facility] , 1 tabs Oral Daily Start Date: 12/16/14 Status: Ordered Vitamin C 500 mg, Oral, qPM, 0 Refill(s) Start Date: 07/19/14 Status: Ordered Results No data available for this section Immunizations Vaccine Date Refusal Reason influenza virus vaccine, inactivated 11/24/14 pneumococcal 23-polyvalent vaccine 03/19/15 Procedures Procedure Date Related Diagnosis Body Site Closure Ileostomy1 03/11/15 Injection(s), anesthetic agent and/or 11/11/14 steroid, transforaminal epidural, with imaging guidance (fluoroscopy or CT); lumbar or sacral, each additional level (List separately in addition to code for primary procedure)..... Injection(s), anesthetic agent and/or 11/11/14 steroid, transforaminal epidural, with imaging guidance (fluoroscopy or CT); lumbar or sacral, single level LEFT L2-3/L4-5 TRANSFORAMINAL 11/11/14 Laparotomy Exploratory2 07/01/14 [...]
--- OUTSIDE RECORDS SUMMARY | 2016-07-13 09:36 | XMS REPORT | Referral Summary ---
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 Discharge Disposition: Home or Self Care Attending Physician: Rick Shearer MD Admitting Physician: Rick Shearer MD Referring Physician: Aman Barbour MD Vital Signs Most recent to 1 oldest [Reference Range]: Peripheral Pulse 72 bpm Rate [60-100 bpm] (06/09/14 1:44 PM) Blood Pressure 120/70 mmHg [90-140/60-90 mmHg] (06/09/14 1:44 PM) Problem List Condition Effective Dates Status Health Status Informant ENTHESOPATHY OF HIP Active REGION(Confirmed) Hypertension(Confirm Active ed) Cedillo Active syndrome(Confirmed) Colon 1998 Active cancer(Confirmed)1 Rectal Active cancer(Confirmed) [place] Active PARESTHETICA(Confirm ed) Morbid Active patient obesity(Confirmed) 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) Lumbar disc Active herniation(Confirmed ) Lumbar spinal Active stenosis(Confirmed) THORACIC OR Active LUMBOSACRAL NEURITIS OR RADICULITIS, UNSPECIFIED(Confirme d) Tobacco Active patient user(Confirmed) 1SGY X3 Allergies, Adverse Reactions, Alerts Substance Reaction Severity Status hydrochlorothiazide DIARRHEA Active morphine Itching Active Medications Aleve Caplet 220 mg, Oral, BID, 0 Refill(s) Start Date: 03/18/14 Status: Ordered amLODIPine 10 mg oral tablet 1 tabs, Oral, Daily, # 30 tabs, 0 Refill(s) Start Date: 03/18/14 Status: Ordered aspirin 81 mg oral tablet 1 tabs, Oral, Daily, # 30 tabs, 0 Refill(s) Start Date: 03/18/14 Status: Ordered Calcium 600+D 2 tabs, Oral, Daily, 0 Refill(s) Start Date: 03/18/14 Status: Ordered chlorthalidone 25 mg oral tablet 0.5 tabs, Oral, Daily, # 30 tabs, 0 Refill(s) Start Date: 03/18/14 Status: Ordered estradiol 1 mg oral tablet 1 tabs, Oral, Daily, # 30 tabs, 0 Refill(s) Start Date: 03/18/14 Status: Ordered Fish Oil 1200 mg oral capsule 1 caps, Oral, Daily, 0 Refill(s) Start Date: 03/18/14 Status: Ordered losartan 100 mg oral tablet 1 tabs, Oral, Daily, # 30 tabs, 0 Refill(s) Start Date: 03/18/14 Status: Ordered lutein 20 mg oral tablet 1 tabs, Oral, Daily, # 30 tabs, 0 Refill(s) Start Date: 03/18/14 Status: Ordered multivitamin Daily, 0 Refill(s) Start Date: 03/18/14 Status: Ordered Zithromax 0 Refill(s) Start Date: 06/09/14 Status: Ordered Results No data available for this section Immunizations No data available for this section Procedures Procedure Date Related Diagnosis Body Site Sigmoidoscopy, flexible; diagnostic, 06/09/14 including collection of specimen(s) by brushing or washing, when performed (separate procedure) Bilateral Trochanteric Bursa Injection under 05/18/14 US L2-3 Translaminar 04/30/14 Cholecystectomy 1996 Colon Surgery X3 1971 colon surgery removal of cancer Gallbladder Hehisscence Repair X2 Hysterectomy Left hand surgery Social History Social History Type Response Smoking Status Former smoker; Type: Cigarettes; Total pack years: 8 Assessment and Plan Extracted from: Title: Office Visit Note Author: Rick Shearer MD Date: 06/09/14 Assessment/Plan Cedillo syndrome Ordered: Office Visit Level 5 [place] [id number] sigmoidoscopy flx dx w/wo collj specimens [id number] Rectal cancer We had a lengthy discussion as to what we should do. I think she would be best served by a completion proctocolectomy. This would remove the rectal cancer and the remaining vulnerable l colorectal mucosa. I would then plan on a reconstruction using an ileoanal J-pouch. She is aware that this would be done with a loop ileostomy that would require closure later. The other option would be to just do a completion proctocolectomy with an end ileostomy. However , she strongly desires to have the J-pouch. We discussed risks of bleeding, infection, the risk of injury to intra-abdominal organs, the need for further surgery, anastomotic problems, the risk of injury to sympathetic and parasympathetic nerves, an d other unforeseen complications such as stroke, heart attack, and . All of her questions were answered. She does desire to proceed. I'll get this set up at [facility]. Ordered: Office Visit Level 5 New [id number] sigmoidoscopy flx dx w/wo collj specimens [id number]
--- OUTSIDE RECORDS SUMMARY | 2016-07-13 09:36 | XMS REPORT | CCD ---
Author Author TUSHAR JEAN BAPTISTE Organization Unknown Address [address], [place] [address] Phone 0 Care Team Providers Care Third Hand Name Role Phone VAL CARTER Attending Physician [phone] Vital Signs Unknown or Not Available. Allergies Allergy Code Allergy Type Reaction Status MORPHINE 7052 Drug allergy ITCHING Active Procedures Unknown or Not Available. History of Immunizations Unknown or Not Available. Problems Unknown or Not Available. Results Unknown or Not Available. Active Medications Unknown or Not Available. Medications Administered During Visit Unknown or Not Available. Encounters Encounter Diagnosis Diagnosis Code Start Date DEHYDRATION 47459 09/02/2014 Social History Smoking Status Code Start Date End Date Former smoker [id number] Patient Decision Aids Unknown or Not Available. Discharge Instructions You were admitted to [facility] on 09/02/2014 with a principal diagnosis of DEHYDRATION. Should you have any questions prior to discharge, please contact a member of your healthcare team. If you have left the hospital and have any questions, please contact your primary care physician. Chief Complaint and Reason For Visit Unknown or Not Available. Function Status Unknown or Not Available. Plan of Care Unknown or Not Available. Referral/Transition of Care Unknown or Not Available.
--- OUTSIDE RECORDS SUMMARY | 2016-07-13 09:36 | XMS REPORT | Referral Summary ---
Author Author [facility] Organization [facility] Address Unknown Phone Unavailable Care Team Providers Care Tire Mold Tester Name Role Phone Leilanimariela Noah Primary Care Physician [phone] Encounter VC Date(s): 12/08/14 - 12/08/14 [facility] [address] [place], [place] [address] Discharge Diagnosis: Rectal cancer Discharge [...] appointment, # 30 tabs, 0 Refill(s), Pharmacy: [facility], TAKE 1 TABLET BY MOUTH DAILY; [...] q12hr, # 42 tabs, 0 Refill(s), Pharmacy: [facility] , 1 tabs Oral q12hr,x21 days [...] q12hr, # 42 tabs, 0 Refill(s), Pharmacy: [facility] , 1 tabs Oral q12hr,x21 days Start Date: 05/17/15 Stop Date: 06/07/15 Status: Ordered Flonase 50 mcg/inh nasal spray 2 sprays, Nasal, Daily, Seasonal Allergy Symptoms, 0 Refill(s) Start Date: 06/24/14 Status: Ordered hydrochlorothiazide 25 mg oral tablet 25 mg 1 tabs, Oral, Daily, # 90 tabs, 1 Refill(s), Pharmacy: [facility], 1 tabs Oral Daily Start Date: 02/17/15 Status: Ordered hydrocortisone 2.5% topical cream 1 bc, Topical, TID, prn as needed, # 30 g, 0 Refill(s), Pharmacy: [facility] Start Date: 06/14/15 Status: Ordered lutein 20 mg oral tablet 20 mg 1 tabs, Oral, Daily, # 30 tabs, 0 Refill(s) Start Date: 03/18/14 Status: Ordered magnesium oxide 400 mg (241.3 mg elemental magnesium) oral tablet 800 mg 2 tabs, Oral, Daily, # 60 tabs, 3 Refill(s), Pharmacy: [facility] , 2 tabs Oral Daily Start Date: 08/25/14 Status: Ordered metoprolol tartrate 25 mg oral tablet 25 mg 1 tabs, Oral, BID, # 180 tabs, 1 Refill(s), Pharmacy: [facility] Start Date: 02/17/15 Stop Date: 08/16/15 Status: Ordered multivitamin 1 tabs, Oral, qPM, 0 Refill(s) Start Date: 03/18/14 Status: Ordered [place] 5 mg-325 mg oral tablet 1 -2 [...] Daily, # 30 tabs, 3 Refill(s), Pharmacy: [facility] , 1 tabs Oral Daily Start [...] syndrome Ordered: Office Visit Level 2 Est 36488 Rectal cancer For the most part, the pouch looks good. My plan is to do a pouchogram in 2 months. If the findings are stable, I think we will go ahead and close ileostomy. All of her questions have been answered at this point in time. Ordered: Office Visit Level 2 Est 60835 XR Gastrografin Enema Orders: diphenoxylate-atropine, 1 tabs, Oral, q6hr, # 100 tabs, 11 Refill(s) Extracted from: Title: Ambulatory Patient Education Author: La Black LPN Date: Family Medicine Loop Colostomy Reversal A loop colostomy reversal [...] taken, including vitamins, health supplements, herbs, eyedrops, qggx-qjt-rdeycei medicines, and creams. Use of steroids (by [...] 06/22/2014 Document Reviewed: ExitCare Patient Information 2015 [facility], [facility]. This information is not intended to replace advice given to you by your health care provider. Make sure you discuss any questions you have with your health care provider. No follow up information was provided.
--- OUTSIDE RECORDS SUMMARY | 2016-07-13 09:36 | XMS REPORT | Referral Summary ---
Author Author [facility] Organization [facility] Address Unknown Phone Unavailable Care Team Providers Care Pit Slagman Name Role Phone JavidsaloNoah Primary Care Physician [phone] Encounter VC Date(s): 06/29/14 - 06/29/14 [facility] [address] [place] [address] [[email or web address] Discharge Disposition: 01-Home or Self Care Attending Physician: Guero Wheeler MD Admitting Physician: Guero Wheeler MD Vital Signs No data available for [...] Daily, # 90 tabs, 0 Refill(s), Pharmacy: [facility], 1 tabs Oral Daily,x90 days Start [...] Daily, # 90 tabs, 0 Refill(s), Pharmacy: [facility], 1 tabs Oral Daily,x90 days Start Date: 11/24/14 Stop Date: 02/22/15 Status: Ordered Claritin 10 mg, Oral, Daily, as needed for allergy symptoms, 0 Refill(s) Start Date: 06/24/14 Status: Ordered ferrous sulfate 325 mg (65 mg elemental iron) oral delayed release tablet See Instructions, 1 tabs Oral TID, # 90 tabs, eRx: [facility], 1 tabs Oral TID Start [...] Chlorthalidone, # 90 tabs, 0 Refill(s), Pharmacy: [facility], 1 tabs Oral Daily,Instr:APPT in [...] Daily, # 60 tabs, 3 Refill(s), Pharmacy: [facility] , 2 tabs Oral Daily Start [...] Daily, # 30 tabs, 3 Refill(s), Pharmacy: [facility] , 1 tabs Oral Daily Start Date: 12/16/14 Status: Ordered Vitamin C 500 mg, Oral, qPM, 0 Refill(s) Start Date: 07/19/14 Status: Ordered Results No data available for this section Immunizations Vaccine Date Refusal Reason influenza virus vaccine, inactivated 11/24/14 Procedures Procedure Date Related Diagnosis Body Site LEFT L2-3/L4-5 TRANSFORAMINAL 11/11/14 Laparotomy Exploratory1 07/01/14 Cystoscopy Ureteral Stent Insertion2 06/29/14 Cystourethroscopy, with ureteral 06/29/14 catheterization, with or without irrigation, instillation, or ureteropyelography, exclusive of radiologic service; Ileostomy Loop3 06/29/14 Bilateral Trochanteric Bursa Injection under 05/18/14 L2-3 Translaminar 04/30/14 Cholecystectomy 1996 Colon Surgery [...]
--- OUTSIDE RECORDS SUMMARY | 2016-07-13 09:37 | XMS REPORT | Referral Summary ---
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 Final: ILEOSTOMY STATUS Final: Acute Kidney Failure, Unspecified Final: HYPOSMOLALITY AND/OR HYPONATREMIA Final: UNSPECIFIED ESSENTIAL HYPERTENSION Final: Leukocytosis, unspecified Final: BUNDLE BRANCH BLOCK, UNSPECIFIED Final: PAIN IN JOINT INVOLVING LOWER LEG Final: Hypovolemia Discharge Disposition: 06-Home with Home Health Care Attending Physician: Devyn Hogan MD Admitting Physician: Devyn Hogan MD Vital Signs Most recent to 1 oldest [Reference Range]: Temperature Oral 36.4 degC [35.8-37.3 degC] (07/23/14 11:52 AM) Peripheral Pulse 75 bpm Rate [60-100 bpm] (07/23/14 11:52 AM) Respiratory Rate 16 br/min [14-20 br/min] (07/23/14 11:52 AM) Blood Pressure 110/72 mmHg 1 [90-140/60-90 mmHg] (07/23/14 11:52 AM) SpO2 98 % (07/23/14 11:52 AM) 1Result Comment: left arm, sitting Problem List Condition Effective Dates Status Health [...] Daily, # 90 tabs, 0 Refill(s), Pharmacy: [facility], 1 tabs Oral Daily,x90 days Start [...] Daily, # 90 tabs, 0 Refill(s), Pharmacy: [facility], 1 tabs Oral Daily,x90 days Start Date: 11/24/14 Stop Date: 02/22/15 Status: Ordered Claritin 10 mg, Oral, Daily, as needed for allergy symptoms, 0 Refill(s) Start Date: 06/24/14 Status: Ordered ferrous sulfate 325 mg (65 mg elemental iron) oral delayed release tablet See Instructions, 1 tabs Oral TID, # 90 tabs, eRx: [facility], 1 tabs Oral TID Start Date: [...] Chlorthalidone, # 90 tabs, 0 Refill(s), Pharmacy: [facility], 1 tabs Oral Daily,Instr:APPT in 30 DAYS [...] Daily, # 60 tabs, 3 Refill(s), Pharmacy: [facility] , 2 tabs Oral Daily Start [...] Daily, # 30 tabs, 3 Refill(s), Pharmacy: [facility] , 1 tabs Oral Daily Start Date: 12/16/14 Status: Ordered Vitamin C 500 mg, Oral, qPM, 0 Refill(s) Start Date: 07/19/14 Status: Ordered Results Hematology Most recent to 1 oldest [Reference Range]: WBC [4.8-10.8 9.5 10*3/uL 10*3/uL] (07/21/14 7:03 AM) RBC [4.00-5.20 3.06 10*6/uL 10*6/uL] *LOW* (07/21/14 7:03 AM) Hgb [12.0-16.0 9.6 gm/dL gm/dL] *LOW* (07/21/14 7:03 AM) Hct [37.0-47.0 %] 28.9 % *LOW* (07/21/14 7:03 AM) MCV [82.0-99.0 fL] 94.4 fL (07/21/14 7:03 AM) MCH [27.0-32.0 pg] 31.4 pg (07/21/14 7:03 AM) MCHC [32.0-36.0 33.2 gm/dL gm/dL] (07/21/14 7:03 AM) RDW [11.5-14.5 %] 14.1 % (07/21/14 7:03 AM) Platelet [150-400 387 10*3/uL 10*3/uL] (07/21/14 7:03 AM) MPV [9.4-12.4 fL] 9.0 fL *LOW* (07/21/14 7:03 AM) Neutrophils [51-75 68 % %] (07/19/14 7:48 AM) Band Man [0-8 %] 11 % *HI* (07/19/14 7:48 AM) Myelo Man 1 % (07/19/14 7:48 AM) Lymphocytes [20-46 12 % %] *LOW* (07/19/14 7:48 AM) Monocytes [4-11 %] 7 % (07/19/14 7:48 AM) Eosinophils [0-4 %] 2 % (07/19/14 7:48 AM) Basophils [0-2 %] 0 % (07/19/14 7:48 AM) Neutro Absolute 11.61 10*3 [1.90-7.00 10*3] *HI* (07/19/14 7:48 AM) Lymph Absolute 1.76 10*3 [0.80-3.30 10*3] (07/19/14 7:48 AM) [place] Absolute 1.03 10*3 [0.30-1.00 10*3] *HI* (07/19/14 7:48 AM) Eos Absolute 0.29 10*3 [0.00-0.50 10*3] (07/19/14 7:48 AM) Baso Absolute 0.05 10*3 [0.00-0.20 10*3] (07/19/14 7:48 AM) Nucleated RBC 0.0 /100 WBC Automated [0 /100 (07/19/14 7:48 AM) WBC] Differential Reviewed (07/19/14 7:48 AM) Chemistry Most recent to 1 oldest [Reference Range]: Sodium Lvl [136-144 135 mEq/L mEq/L] *LOW* (07/23/14 9:36 AM) Potassium Lvl 3.5 mEq/L [3.6-5.1 mEq/L] *LOW* (07/23/14 9:36 AM) Chloride [99-109 101 mEq/L mEq/L] (07/23/14 9:36 AM) CO2 [22-32 mEq/L] 26 mEq/L (07/23/14 9:36 AM) AGAP [3-20] 8 (07/23/14 9:36 AM) BUN [4-20 mg/dL] 16 mg/dL (07/23/14 9:36 AM) Glucose Lvl [70-100 106 mg/dL mg/dL] *HI* (07/23/14 9:36 AM) Creatinine Lvl 1.11 mg/dL [0.44-1.03 mg/dL] *HI* (07/23/14 9:36 AM) eGFR [>60] 48 1 *ABN* (07/23/14 9:36 AM) Calcium Lvl 8.2 mg/dL [8.6-10.0 mg/dL] *LOW* (07/23/14 9:36 AM) Albumin Lvl [3.5-4.8 2.2 gm/dL gm/dL] *LOW* (07/21/14 7:03 AM) Magnesium Lvl 1.7 mg/dL [1.8-2.5 mg/dL] *LOW* (07/23/14 9:36 AM) Phosphorus [2.4-4.7 2.2 mg/dL 2 mg/dL] *LOW* (07/21/14 7:03 AM) Troponin [<0.06 <0.05 ng/mL ng/mL] (07/20/14 9:02 AM) Chol [0-200 mg/dL] 156 mg/dL (07/19/14 6:11 PM) Trig [0-150 mg/dL] 130 mg/dL (07/19/14 6:11 PM) HDL [>40 mg/dL] 68 mg/dL (07/19/14 6:11 PM) LDL [0-100 mg/dL] 62 mg/dL (07/19/14 6:11 PM) VLDL Cholesterol 26 mg/dL [0-30 mg/dL] (07/19/14 6:11 PM) Cardiac Risk 2.3 [0.0-5.0] (07/19/14 6:11 PM) 1Result Comment: Multiply eGFR results by 1.21 for race. 2Result Comment: High dosages of liposomal Amphotericin B (AmBisome) therapy or other drug preparations that use a liposomal envelope to facilitate drug delivery may cause falsely elevated results for phosphorus. Urinalysis Most recent to 1 oldest [Reference Range]: UA Color Lt Yellow (07/19/14 3:38 PM) UA Appear Clear (07/19/14 3:38 PM) UA pH [5.0-8.0] 5.0 (07/19/14 3:38 PM) UA Leuk Est Negative [Negative] (07/19/14 3:38 PM) UA Nitrite Negative [Negative] (07/19/14 3:38 PM) UA Protein Negative [Negative] (07/19/14 3:38 PM) UA Glucose Negative [Negative] (07/19/14 3:38 PM) UA Ketones Negative [Negative] (07/19/14 3:38 PM) UA Urobilinogen Negative [<1.0] (07/19/14 3:38 PM) UA Bili [Negative] Negative (07/19/14 3:38 PM) UA Blood [Negative] Trace *ABN* (07/19/14 3:38 PM) UA Spec Grav 1.011 [1.003-1.030] (07/19/14 3:38 PM) Type Clean Catch (07/19/14 3:38 PM) UA WBC [0-4] 2-5 (07/19/14 3:38 PM) UA RBC [0-2] 0-2 (07/19/14 3:38 PM) Epithelial Cells 2-5 (07/19/14 3:38 PM) UA Bacteria Rare (07/19/14 3:38 PM) UA Hyal Cast [0-3] 1-3 (07/19/14 3:38 PM) UA Yeast Present *ABN* (07/19/14 3:38 PM) Immunizations Vaccine Date Refusal Reason influenza [...]
--- OUTSIDE RECORDS SUMMARY | 2016-07-13 09:37 | XMS REPORT | Referral Summary ---
Author Author [facility] Organization [facility] Address Unknown Phone Unavailable Care Team Providers Care Switchboard Manager Name Role Phone Noah Arzate Primary Care Physician [phone] Encounter VC Date(s): 03/30/15 - 03/30/15 [facility] [address] [place], [place] [address] Discharge Disposition: 01-Home or Self Care Attending Physician: Rick Shearer MD Admitting Physician: Rick Shearer MD Referring Physician: Frandy Arzate MD Vital [...] Daily, # 90 tabs, 0 Refill(s), Pharmacy: [facility], 1 tabs Oral Daily,x90 days Start [...] Daily, # 90 tabs, 1 Refill(s), Pharmacy: [facility], 1 tabs Oral Daily Start Date: 02/17/15 Status: Ordered lutein 20 mg oral tablet 20 mg 1 tabs, Oral, Daily, # 30 tabs, 0 Refill(s) Start Date: 03/18/14 Status: Ordered magnesium oxide 400 mg (241.3 mg elemental magnesium) oral tablet 800 mg 2 tabs, Oral, Daily, # 60 tabs, 3 Refill(s), Pharmacy: [facility] , 2 tabs Oral Daily Start Date: 08/25/14 Status: Ordered metoprolol tartrate 25 mg oral tablet 25 mg 1 tabs, Oral, BID, # 180 tabs, 1 Refill(s), Pharmacy: [facility] Start Date: 02/17/15 Stop Date: 08/16/15 Status: Ordered multivitamin 1 tabs, Oral, qPM, 0 Refill(s) Start Date: 03/18/14 Status: Ordered [place] 5 mg-325 mg oral tablet 1 -2 [...]
--- OUTSIDE RECORDS SUMMARY | 2016-07-13 09:37 | XMS REPORT | Referral Summary ---
Author Organization Unknown Address Unknown Phone Unavailable Care Team Providers Care Electromechanic Name Role Phone Jonnie Gonzalez Primary Care Physician [phone] Encounter VC Date(s): 04/30/14 - 04/30/14 [facility] [address] [place], [place] [address] Discharge Diagnosis: Lumbar pain Discharge Diagnosis: THORACIC OR LUMBOSACRAL NEURITIS OR RADICULITIS, UNSPECIFIED Discharge Diagnosis: Lumbar disc herniation Discharge Diagnosis: Lumbar spinal stenosis Discharge Disposition: Home or Self Care Attending Physician: Neo Rasheed MD Admitting Physician: Noe Rasheed MD Referring Physician: Roxanna Gonzalez DO Vital Signs Most recent to 1 oldest [Reference Range]: Peripheral Pulse 71 bpm Rate [60-100 bpm] (04/30/14 1:34 PM) Respiratory Rate 17 br/min [14-20 br/min] (04/30/14 1:34 PM) Blood Pressure 151/72 mmHg [90-140/60-90 mmHg] *HI* (04/30/14 1:34 PM) Most recent to 1 oldest [Reference Range]: SpO2 100 % (04/30/14 1:34 PM) Problem List Condition Effective Dates Status Health Status Informant ENTHESOPATHY OF HIP Active REGION(Confirmed) Hypertension(Confirm Active ed) Colon 1997 Active cancer(Confirmed)1 [place] Active [place](Confirm ed) Morbid Active patient [...] 0 Refill(s) Start Date: 03/18/14 Status: Ordered Results No data available for this section Immunizations No data available for this section Procedures Procedure Date Related Diagnosis Body Site Injection(s), of diagnostic or therapeutic 04/30/14 substance(s) (including anesthetic, antispasmodic, opioid, steroid, other solution), not including neurolytic substances, including needle or catheter placement, includes contrast for localization when performed, L2-3 Translaminar 04/30/14 Cholecystectomy 1996 Colon Surgery X3 1971 colon surgery removal of cancer Gallbladder Hehisscence Repair X2 Hysterectomy Left hand surgery Social History Social History Type Response Smoking Status Former smoker; Type: Cigarettes; Total pack years: 8 Assessment and Plan No data available for this section
--- OUTSIDE RECORDS SUMMARY | 2016-07-13 09:37 | XMS REPORT | Continuity of Care Document ---
Author Author [facility] Organization [facility] Address Unknown Phone Unavailable Support Name Relationship Address Phone ZANDRA MARSHALL MD Caregiver [facility] [address] [place] [address] [address] [place] [phone] JAI LIM DO Caregiver [address] [place] [phone] WILLEM CHRISTIANSEN Next Of Kin [address] [place] [address] Insurance Providers Payer Name Policy Number Subscriber Name Relationship Medicare [id number] Edgar Christiansen 18 Self Other A Insurance [id number] Edgar Christiansen 18 Self Advance Directives Directive Response Recorded Date/Time Ordered Resuscitation Status Full Code 05/25/14 5:44pm Resuscitation Documents on File No 05/25/14 12:02pm Problems No known problems or medical conditions. Medications Medication Dose Route Sig Days/Qty Instructions Order Date Discontinued Date Status Amlodipine Besylate DAILY 09/02/12 Active Losartan Potassium DAILY 09/02/12 09/03/12 Discontinued Chlorthalidone 12.5 Mg PO DAILY 09/02/12 Active Aspirin 81 Mg PO DAILY 09/02/12 Active Ibuprofen 2 Mg DAILY 09/02/12 Active Calcium Carbonate 1,500 Mg PO DAILY 09/02/12 Active Multivitamins 1 Tab PO DAILY 09/02/12 Active Fish Oil/Dha/Epa 1 Each PO DAILY 09/02/12 Active Lutein 20 Mg PO DAILY 09/02/12 Active Estradiol 1 Mg PO EVERY OTHER DAY 09/02/12 Active Ascorbic Acid 1 Tab PO DAILY 05/25/14 Active Social History Social History Problem Response Recorded Date/Time Chewing Tobacco Status No 09/02/2012 10:11am Hx Substance Use No 05/25/2014 11:57am Hx Alcohol Use Yes 05/25/2014 11:57am Has the pt used tobacco in the last 12 months No 05/25/2014 11:57am Query Response Start Date Stop Date Smoking Status Former smoker Hospital Discharge Instructions No hospital discharge instructions. Plan of Care No plan of care. Functional Status No functional status results. Allergies, Adverse Reactions, Alerts Allergen Type Severity Reaction Status Last Updated Morphine Allergy Unknown HIVES Active 09/02/12 Immunizations Name Given Type Hx Influenza Vaccination N 10 YRS AGO Historical Hx Pneumococcal Vaccination No Historical Hx Influenza Vaccination N 10 YRS AGO Historical Vital Signs Acute Vital Signs Vital Response Date/Time Temperature (Fahrenheit) 98.8 deg F (96.8 - 99.1) Temperature (Calculated Celsius) 37.09547 degrees C (36.0 - 37.3) Temperature Source Temporal Pulse Rate (adult) 70 bpm (60 - 100) Respiratory Rate 22 breaths/min (10 - 20) O2 Sat by Pulse Oximetry 98 % (90 - 100) Oxygen Delivery Method Room Air Blood Pressure 171/75 mm Hg Blood Pressure Source Automatic Cuff Height 5 ft 8 in Weight 196 lb Body Mass Index 29.0 kg/m^2 Results No known relevant diagnostic tests, laboratory data and/or discharge summary. Procedures Procedure Status Date Provider(s) Colonoscopy completed 05/26/14 ZANDRA MARSHALL MD
--- OUTSIDE RECORDS SUMMARY | 2016-07-13 09:37 | XMS REPORT | Referral Summary ---
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 Discharge Disposition: 01-Home or Self Care Attending [...] Daily, # 90 tabs, 0 Refill(s), Pharmacy: [facility], 1 tabs Oral Daily,x90 days Start Date: 08/16/15 Stop Date: 11/14/15 Status: Ordered aspirin 81 mg oral tablet 81 mg 1 tabs, Oral, qPM, # 30 tabs, 0 Refill(s) Start Date: 03/18/14 Status: Ordered Calcium 600+D 1 tabs, Oral, Daily, 0 Refill(s) Start Date: 03/18/14 Status: Ordered Cipro 500 mg oral tablet 500 mg 1 tabs, Oral, q12hr, # 42 tabs, 0 Refill(s), Pharmacy: [facility] , 1 tabs Oral q12hr,x21 days [...] # 42 tabs, 0 Refill(s), Pharmacy: [facility] , 1 tabs Oral q12hr,x21 days Start Date: 05/17/15 Stop Date: 06/07/15 Status: Ordered Flonase 50 mcg/inh nasal spray 2 sprays, Nasal, Daily, Seasonal Allergy Symptoms, 0 Refill(s) Start Date: 06/24/14 Status: Ordered hydrochlorothiazide 25 mg oral tablet 25 mg 1 tabs, Oral, Daily, # 90 tabs, 0 Refill(s), Pharmacy: [facility], 1 tabs Oral Daily Start Date: 08/16/15 Status: Ordered hydrocortisone 2.5% topical cream 1 bc, Topical, TID, prn as needed, # 30 g, 0 Refill(s), Pharmacy: [facility] Start Date: 06/14/15 Status: Ordered Lomotil [...] Daily, # 60 tabs, 3 Refill(s), Pharmacy: [facility] , 2 tabs Oral Daily Start Date: 08/25/14 Status: Ordered metoprolol tartrate 25 mg oral tablet 25 mg 1 tabs, Oral, BID, # 180 tabs, 0 Refill(s), Pharmacy: [facility] Start Date: 08/16/15 Stop Date: 11/14/15 Status: Ordered multivitamin 1 tabs, Oral, qPM, 0 Refill(s) Start Date: 03/18/14 Status: Ordered mupirocin 2% topical ointment 1 bc, Topical, BID, X 7 days, # 22 g, 0 Refill(s), Pharmacy: [facility] Start Date: 09/15/15 Stop Date: 09/22/15 Status: Ordered [place] 5 mg-325 mg oral tablet 1 -2 tabs, Oral, q4hr, Pain Moderate (4-6), 0 Refill(s) Start Date: 03/13/15 Status: Ordered omega-3 polyunsaturated fatty acids oral capsule 1 caps, Oral, Daily, # 100 caps, 0 Refill(s) Start Date: 03/11/15 Status: Ordered Opium Deodorized 10% (equivalent to morphine 10 mg/mL) oral tincture See Instructions, 1.0 ml po tid, # 50 mL, 0 Refill(s) Start Date: 08/04/15 Status: Ordered potassium chloride 20 mEq oral tablet, extended release 20 mEq 1 tabs, Oral, Daily, # 30 tabs, 3 Refill(s), Pharmacy: [facility] , 1 tabs Oral Daily Start Date: 12/16/14 Status: Ordered Vitamin C 500 mg, Oral, qPM, 0 Refill(s) Start Date: 07/19/14 Status: Ordered Results No data available for this section Immunizations Vaccine Date Refusal Reason influenza virus vaccine, inactivated 11/24/14 pneumococcal 23-polyvalent vaccine 03/19/15 Procedures Procedure Date Related Diagnosis Body Site Excision, malignant lesion including margins, 09/15/15 trunk, arms, or legs; excised diameter 1.1 to 2.0 cm Repair, intermediate, wounds of scalp, 09/15/15 axillae, trunk and/or extremities (excluding hands and feet); 2.6 cm to 7.5 cm Closure Ileostomy1 03/11/15 LEFT L2-3/L4-5 TRANSFORAMINAL 11/11/14 [...] Visit Note Author: Don Mccarty MD Date: 09/15/15 Assessment/Plan 1.Squamous cell carcinoma of trunk Options/risks/benefits of the procedure were discussed and explained and signed consent was obtained. Specifically discussed risks of scarring, abnormal scarring, skin changes such as color or texture changes, recurrence, incomplete removal, bleeding, infection , need for further treatment, damage to surrounding structures including nerves and other unexpected risks/outcomes of these types of skin procedures. The patient agreed to proceed with treatment. The sites were confirmed with the patient. Final timeout performed. LOCATION:Chest PROCEDURE: Excise with4 mm margins and close with intermediate complexity primary closure LESION SIZE (including margins):1.3 x 1.5cm FINAL INCISION LENGTH:3.5 cm ANESTHESIA: 1%lidocaine with 1/100,000 epinephrine=8 cc total PREP: Chlorhexidine PATH SENT: Taggedsuperiorly MEDICATION REVIEW: Prior to procedure, determined whether patient is taking anticoagulant medications, which (s)he is (ASA 81 mg po qdaily). Risk of increased bleeding from this discussed. COMPLICATIONS: none EBL: <3cc Lesion and surrounding area were then prepped and draped in the usual, sterile fashion. The lesion was excised in an elliptical fashion with 4 mm margins to fat. Wound edges were undermined with a scalpel. Electrocautery was used for hemostasis.3-0PDS interrupted subcutaneous sutures, including a central kailash suturewere placed to approximate wound edges. A running simple stitch with4-0 prolene suture was placed. A pressure dressing was placed. The patient tolerated the procedure well. No complications. Post-operative PLAN: - Remove pressure dressing in24 hours - Wound instructions given. - Counselled: Warnings and instructions re: bleeding and signs and symptoms of infection and hematoma. Pt provided withclinic phone number. - Pain Control: Tylenol 325 to 650mg PO q6 hours prn - Antibiotics: Mupirocin ointment twice daily x 7 days - Treatment plan was discussed with patient - Return to clinic7-14 days for sutural removal Extracted from: Title: Ambulatory Patient Education Author: Don Mccarty MD Date: [facility] Excision of Skin Lesions Excision of a skin lesion refers to the removal of a section of skin by making small cuts (incisions) in the skin. This is typically done to remove a cancerous growth (basal cell carcinoma, squamous cell carcinoma, or melanoma) or a noncancerous growth (cyst). It may be done to treat or prevent cancer or infection. It may also be done to improve cosmetic appearance (removal of mole, skin tag). LET YOUR CAREGIVER KNOW ABOUT: Allergies to food or medicine. Medicines taken, including vitamins, herbs, eyedrops, zzta-xlo-xcezekl medicines, and creams. Use of steroids (by mouth or creams). Previous problems with anesthetics or numbing medicines. History of bleeding problems or blood clots. History of any prostheses. Previous surgery. Other health problems, including diabetes and kidney problems. Possibility of , if this applies. RISKS AND COMPLICATIONS Many complications can be managed. With appropriate treatment and rehabilitation , the following complications are very uncommon: Bleeding. Infection. Scarring. Recurrence of cyst or cancer. Changes in skin sensation or appearance (discoloration, swelling). Reaction to anesthesia. Allergic reaction to surgical materials or ointments. Damage to nerves, blood vessels, muscles, or other structures. Continued pain. BEFORE THE PROCEDURE It is important to follow your caregiver's instructions prior to your procedure to avoid complications. Steps before your procedure may include: Physical exam, blood tests, other procedures, such as removing a small sample for examination under a microscope (biopsy). Your caregiver may review the procedure, the anesthesia being used, and what to expect after the procedure with you. You may be asked to: Stop taking certain medicines, such as blood thinners (including aspirin , clopidogrel, ibuprofen), for several days prior to your procedure. Take certain medicines. Stop smoking. It is a good idea to arrange for a ride home after surgery and to have someone to help you with activities during recovery. PROCEDURE There are several excision techniques. The type of excision or surgical technique used will depend on your condition, the location of the lesion, and your overall health. After the lesion is sterilized and a local anesthetic is applied, the following may be performed: Complete surgical excision The area to be removed is marked with a pen. Using a small scalpel and scissors , the surgeon gently cuts around and under the lesion until it is completely removed. The lesion is placed in a special fluid and sent to the lab for examination. If necessary, bleeding will be controlled with a device that delivers heat. The edges of the wound are stitched together and a dressing is applied. This procedure may be performed to treat a cancerous growth or noncancerous cyst or lesion. Surgeons commonly perform an elliptical excision, to minimize scarring. Excision of a cyst The surgeon makes an incision on the cyst. The entire cyst is removed through the incision. The wound may be closed with a suture (stitch). Shave excision During shave excision, the surgeon uses a small blade or loop instrument to shave off the lesion. This may be done to remove a mole or skin tag. The wound is usually left to heal on its own without stitches. Punch excision During punch excision, the surgeon uses a small, round tool (like a cookie cutter) to cut a [place] shape out of the skin. The outer edges of the skin are stitched together. This may be done to remove a mole or scar or to perform a biopsy of the lesion. Mohs micrographic surgery During Mohs micrographic surgery, layers of the lesion are removed with a scalpel or loop instrument and immediately examined under a microscope until all of the abnormal or cancerous tissue is removed. This procedure is minimally invasive and ensures the best cosmetic outcome, with removal of as little normal tissue as possible. Mohs is usually done to treat skin cancer, such as basal cell carcinoma or squamous cell carcinoma, particularly on the face and ears. Antibiotic ointment is applied to the surgical area after each of the procedures listed above, as necessary. AFTER THE PROCEDURE How well you heal depends on many factors. Most patients heal quite well with proper techniques and self-care. Scarring will lessen over time. HOME CARE INSTRUCTIONS Take medicines for pain as directed. Keep the incision area clean, dry, and protected for at least 48 hours. Change dressings as directed. For bleeding, apply gentle but firm pressure to the wound using a folded towel for 20 minutes. Call your caregiver if bleeding does not stop. Avoid high-impact exercise and activities until the stitches are removed or the area heals. Follow your caregiver's instructions to minimize scarring. Avoid sun exposure until the area has healed. Scarring should lessen over time. Follow up with your caregiver as directed. Removal of stitches within 4 to 14 days may be necessary. Finding out the results of your test Not all test results are available during your visit. If your test results are not back during the visit, make an appointment with your caregiver to find out the results. Do not assume everything is normal if you have not heard from your caregiver or the medical facility. It is important for you to follow up on all of your test results. SEEK MEDICAL CARE IF: You or your child has an oral temperature above 102 F (38.9 C). You develop signs of infection (chills, feeling unwell). You notice bleeding, pain, discharge, redness, or swelling at the incision site. You notice skin irregularities or changes in sensation. MAKE SURE YOU: Understand these instructions. Will watch your condition. Will get help right away if you are not doing well or get worse. FOR MORE INFORMATION [employer]: www.aafp.org [employer]: www.aad.org This information is not intended to replace advice given to you by your health care provider. Make sure you discuss any questions you have with your health care provider. Document Released: 05/02/2010 Document Revised: 04/29/2012 Document Reviewed: ExitCare Patient Information 2016 [place], [facility]. No follow up information was provided.
--- OUTSIDE RECORDS SUMMARY | 2016-07-13 09:37 | XMS REPORT | Referral Summary ---
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 Discharge Diagnosis: Shoulder pain Discharge Diagnosis: Subacromial bursitis Discharge Disposition: 01-Home or Self Care Attending Physician: Deanne Agrawal PA-C Admitting Physician: Deanne Agrawal PA-C Referring Physician: Roxanna Gonzalez DO Vital Signs Most recent to 1 oldest [Reference Range]: Blood Pressure 138/90 mmHg [90-140/60-90 mmHg] (10/20/14 12:57 PM) Problem List Condition Effective Dates Status [...] Daily, # 90 tabs, 0 Refill(s), Pharmacy: [facility], 1 tabs Oral Daily,x90 days Start Date: 12/10/14 Stop Date: 03/10/15 Status: Ordered aspirin 81 mg oral tablet 81 mg 1 tabs, Oral, qPM, # 30 tabs, 0 Refill(s) Start Date: 03/18/14 Status: Ordered Calcium 600+D 1 tabs, Oral, Daily, 0 Refill(s) Start Date: 03/18/14 Status: Ordered Cipro 500 mg oral tablet 500 mg 1 tabs, Oral, q12hr, # 20 tabs, 0 Refill(s), Pharmacy: [facility] , 1 tabs Oral q12hr,x10 days Start Date: 04/14/15 Stop Date: 04/24/15 Status: Ordered Claritin 10 mg, Oral, Daily, as needed for allergy symptoms, 0 Refill(s) Start Date: 06/24/14 Status: Ordered Fish Oil 1200 mg oral capsule 1,200 mg 1 caps, Oral, qPM, 0 Refill(s) Start Date: 03/18/14 Status: Ordered Flagyl 500 mg oral tablet 500 mg 1 tabs, Oral, q12hr, # 20 tabs, 0 Refill(s), Pharmacy: [facility] , 1 tabs Oral q12hr Start Date: 04/14/15 Status: Ordered Flonase 50 mcg/inh nasal spray 2 sprays, Nasal, Daily, Seasonal Allergy Symptoms, 0 Refill(s) Start Date: 06/24/14 Status: Ordered hydrochlorothiazide 25 mg oral tablet 25 mg 1 tabs, Oral, Daily, # 90 tabs, 1 Refill(s), Pharmacy: [facility], 1 tabs Oral Daily Start Date: 02/17/15 Status: Ordered hydrocortisone 2.5% topical cream 1 bc, Topical, TID, # 30 g, 1 Refill(s), Pharmacy: [facility] Start Date: 04/20/15 Status: Ordered lutein 20 mg oral tablet 20 mg 1 tabs, Oral, Daily, # 30 tabs, 0 Refill(s) Start Date: 03/18/14 Status: Ordered magnesium oxide 400 mg (241.3 mg elemental magnesium) oral tablet 800 mg 2 tabs, Oral, Daily, # 60 tabs, 3 Refill(s), Pharmacy: [facility] , 2 tabs Oral Daily Start Date: 08/25/14 Status: Ordered metoprolol tartrate 25 mg oral tablet 25 mg 1 tabs, Oral, BID, # 180 tabs, 1 Refill(s), Pharmacy: [facility] Start Date: 02/17/15 Stop Date: 08/16/15 Status: Ordered multivitamin 1 tabs, Oral, qPM, 0 Refill(s) Start Date: 03/18/14 Status: Ordered [place] 5 mg-325 mg oral tablet 1 -2 tabs, Oral, q4hr, Pain Moderate (4-6), 0 Refill(s) Start Date: 03/13/15 Status: Ordered omega-3 polyunsaturated fatty acids oral capsule 1 caps, Oral, Daily, # 100 caps, 0 Refill(s) Start Date: 03/11/15 Status: Ordered potassium chloride 20 mEq oral tablet, extended release 20 mEq 1 tabs, Oral, Daily, # 30 tabs, 3 Refill(s), Pharmacy: [facility] , 1 tabs Oral Daily Start [...] Extracted from: Title: Office Visit Note Author: Deanne Agrawal PA-C Date: 10/20/14 Assessment/Plan Degenerative joint disease (DJD) of hip Shoulder pain Subacromial bursitis I discussed the patient's plan of care with Dr. Rasheed. I also reviewed the patient's most recent lumbar MRI. According to this MRI the patient has multilevel degenerative changes at L2-3, L3 4, L4 5with some stenosis. She has previously benefited from an L2-3 translaminar epidural, and has no back complaints at this time. Shedoes seem to have a component of pain coming from her left hip joint. On x-ray,she has mild degenerative changes with joint space narrowing. She also has clinical evidence of left subacromial bursitiswith positive impingement signs. We will obtain left shoulder x-rays today. Dr. Rasheed recommends proceeding with a left intra-articular hip joint injection and a left subacromial bursa injection.The patient does understand the rationale for the procedure as well as possible complications including bleeding , infection, allergic reaction, nerve irritation or damage. The patient voiced understanding and wishes to proceed. The patient requests a local anesthetic. The patient will follow-up in 2-3 months following the injection. If the patient fails to improve or worsening symptoms, they will follow-up sooner. The patient voiced understanding and agrees to the above plan. Physical exam findings, history present illness, and recommendations are performed with and in agreement with Dr. Rasheed's findings.
--- OUTSIDE RECORDS SUMMARY | 2016-07-13 09:37 | XMS REPORT | Referral Summary ---
Author Author [facility] Medicine Organization [facility] Address Unknown Phone Unavailable Care Team Providers Care Vp Lab Name Role Phone Noah Arzate Primary Care Physician [phone] Encounter VC Date(s): 09/17/15 - 09/17/15 [facility] [address] [place] [address] Discharge Disposition: 01-Home or Self Care Attending Physician: Frandy Arzate MD Admitting Physician: Frandy Arzate MD Vital Signs Most recent to 1 oldest [Reference Range]: Blood Pressure 130/80 mmHg [90-140/60-90 mmHg] (09/17/15 9:25 AM) Problem List Condition Effective Dates Status [...] Daily, # 90 tabs, 1 Refill(s), Pharmacy: [facility], 1 tabs Oral Daily,x90 days Start [...] Daily, # 90 tabs, 1 Refill(s), Pharmacy: [facility], 1 tabs Oral Daily Start Date: 09/17/15 Status: Ordered hydrocortisone 2.5% topical cream 1 bc, Topical, TID, prn as needed, # 30 g, 0 Refill(s), Pharmacy: [facility] Start Date: 06/14/15 Status: Ordered Lomotil [...] BID, # 180 tabs, 1 Refill(s), Pharmacy: [facility] Start Date: 09/17/15 Stop Date: 03/15/16 Status: Ordered multivitamin 1 tabs, Oral, qPM, 0 Refill(s) Start Date: 03/18/14 Status: Ordered mupirocin 2% topical ointment 1 bc, Topical, BID, X 7 days, # 22 g, 0 Refill(s), Pharmacy: [facility] Start Date: 09/15/15 Stop Date: 09/22/15 Status: Ordered omega-3 polyunsaturated fatty acids oral [...] Daily, # 30 tabs, 3 Refill(s), Pharmacy: [facility] , 1 tabs Oral Daily Start Date: 12/16/14 Status: Ordered Vitamin C 500 mg, Oral, qPM, 0 Refill(s) Start Date: 07/19/14 Status: Ordered Results Hematology Most recent to 1 oldest [Reference Range]: WBC [4.8-10.8 8.0 10*3/uL 10*3/uL] (09/17/15 10:05 AM) RBC [4.00-5.20] 3.87 *LOW* (09/17/15 10:05 AM) Hgb [12.0-16.0 11.9 gm/dL gm/dL] *LOW* (09/17/15 10:05 AM) Hct [37.0-47.0 %] 36.1 % *LOW* (09/17/15 10:05 AM) MCV [82.0-99.0 fL] 93.3 fL (09/17/15 10:05 AM) MCH [27.0-32.0 pg] 30.7 pg (09/17/15 10:05 AM) MCHC [32.0-36.0 33.0 gm/dL gm/dL] (09/17/15 10:05 AM) RDW [11.5-14.5 %] 14.9 % *HI* (09/17/15 10:05 AM) Platelet [150-400 251 10*3/uL 10*3/uL] (09/17/15 10:05 AM) MPV [8.8-14.8 fL] 10.1 fL (09/17/15 10:05 AM) Immature 0.2 % Granulocytes (09/17/15 10:05 AM) [0.0-1.0 %] Neutrophils [51-75 61 % %] (09/17/15 10:05 AM) Lymphocytes [20-46 27 % %] (09/17/15 10:05 AM) Monocytes [4-11 %] 10 % (09/17/15 10:05 AM) Eosinophils [0-4 %] 1 % (09/17/15 10:05 AM) Basophils [0-2 %] 1 % (09/17/15 10:05 AM) Neutro Absolute 4.90 10*3 [1.90-7.00 10*3] (09/17/15 10:05 AM) Lymph Absolute 2.16 10*3 [0.80-3.30 10*3] (09/17/15 10:05 AM) Marion Absolute 0.81 10*3 [0.30-1.00 10*3] (09/17/15 10:05 AM) Eos Absolute 0.10 10*3 [0.00-0.50 10*3] (09/17/15 10:05 AM) Baso Absolute 0.05 10*3 [0.00-0.20 10*3] (09/17/15 10:05 AM) Chemistry Most recent to 1 oldest [Reference Range]: Sodium Lvl [135-144 142 mEq/L mEq/L] (09/17/15 10:05 AM) Potassium Lvl 3.8 mEq/L [3.5-5.2 mEq/L] (09/17/15 10:05 AM) Chloride [99-111 105 mEq/L mEq/L] (09/17/15 10:05 AM) CO2 [22-31 mEq/L] 31 mEq/L (09/17/15 10:05 AM) AGAP [3-20] 6 (09/17/15 10:05 AM) BUN [10-20 mg/dL] 18 mg/dL (09/17/15 10:05 AM) Glucose Lvl [70-99 85 mg/dL mg/dL] (09/17/15 10:05 AM) Creatinine Lvl 0.74 mg/dL [0.57-1.11 mg/dL] (09/17/15 10:05 AM) eGFR [>60 mL/min] >60 mL/min 1 (09/17/15 10:05 AM) Calcium Lvl 9.1 mg/dL [8.9-10.5 mg/dL] (09/17/15 10:05 AM) Albumin Lvl [3.4-4.8 3.7 gm/dL gm/dL] (09/17/15 10:05 AM) Total Protein 5.9 gm/dL 2 [6.0-7.6 gm/dL] *LOW* (09/17/15 10:05 AM) Globulin [1.8-4.0 2.2 gm/dL gm/dL] (09/17/15 10:05 AM) ALT [0-55 U/L] 18 U/L (09/17/15 10:05 AM) AST [5-34 U/L] 21 U/L (09/17/15 10:05 AM) Alk Phos [40-150 59 U/L U/L] (09/17/15 10:05 AM) Bili Total [0.2-1.2 0.5 mg/dL mg/dL] (09/17/15 10:05 AM) BNP [0-99 pg/mL] 102 pg/mL *HI* (09/17/15 10:05 AM) TSH with Reflex Free 2.68 T4 [0.35-4.94] (09/17/15 10:05 AM) 1Result Comment: Multiply eGFR results by 1.21 for race. 2Result Comment: Please note new reference range for adult Protein. Immunizations Vaccine Date Refusal Reason influenza virus [...] Author: Frandy Arzate MD Date: Family Medicine Arthritis, Nonspecific Arthritis is inflammation of a joint. This usually means pain, redness, warmth or swelling are present. One or more joints may be involved. There are a number of types of arthritis. Your caregiver may not be able to tell what type of arthritis you have right away. CAUSES The most common cause of arthritis is the wear and tear on the joint ( osteoarthritis). This causes damage to the cartilage, which can break down over time. The knees, hips, back and neck are most often affected by this type of arthritis. Other types of arthritis and common causes of joint pain include: Sprains and other injuries near the joint. Sometimes minor sprains and injuries cause pain and swelling that develop hours later. Rheumatoid arthritis. This affects hands, feet and knees. It usually affects both sides of your body at the same time. It is often associated with chronic ailments, fever, weight loss and general weakness. Crystal arthritis. Gout and pseudo gout can cause occasional acute severe pain, redness and swelling in the foot, ankle, or knee. Infectious arthritis. Bacteria can get into a joint through a break in overlying skin. This can cause infection of the joint. Bacteria and viruses can also spread through the blood and affect your joints. Drug, infectious and allergy reactions. Sometimes joints can become mildly painful and slightly swollen with these types of illnesses. SYMPTOMS Pain is the main symptom. Your joint or joints can also be red, swollen and warm or hot to the touch. You may have a fever with certain types of arthritis, or even feel overall ill. The joint with arthritis will hurt with movement. Stiffness is present with some types of arthritis. DIAGNOSIS Your caregiver will suspect arthritis based on your description of your symptoms and on your exam. Testing may be needed to find the type of arthritis: Blood and sometimes urine tests. X-ray tests and sometimes CT or MRI scans. Removal of fluid from the joint (arthrocentesis) is done to check for bacteria, crystals or other causes. Your caregiver (or a specialist) will numb the area over the joint with a local anesthetic, and use a needle to remove joint fluid for examination. This procedure is only minimally uncomfortable. Even with these tests, your caregiver may not be able to tell what kind of arthritis you have. Consultation with a specialist (transporter driver) may be helpful. TREATMENT Your caregiver will discuss with you treatment specific to your type of arthritis. If the specific type cannot be determined, then the following general recommendations may apply. Treatment of severe joint pain includes: Rest. Elevation. Anti-inflammatory medication (for example, ibuprofen) may be prescribed. Avoiding activities that cause increased pain. Only take qbtd-pbk-uqzltzt or prescription medicines for pain and discomfort as recommended by your caregiver. Cold packs over an inflamed joint may be used for 10 to 15 minutes every hour. Hot packs sometimes feel better, but do not use overnight. Do not use hot packs if you are diabetic without your caregiver's permission. A cortisone shot into arthritic joints may help reduce pain and swelling. Any acute arthritis that gets worse over the next 1 to 2 days needs to be looked at to be sure there is no joint infection. Long-term arthritis treatment involves modifying activities and lifestyle to reduce joint stress jarring. This can include weight loss. Also, exercise is needed to nourish the joint cartilage and remove waste. This helps keep the muscles around the joint strong. HOME CARE INSTRUCTIONS Do not take aspirin to relieve pain if gout is suspected. This elevates uric acid levels. Only take lhiz-rsj-ucmufun or prescription medicines for pain, discomfort or fever as directed by your caregiver. Rest the joint as much as possible. If your joint is swollen, keep it elevated. Use crutches if the painful joint is in your leg. Drinking plenty of fluids may help for certain types of arthritis. Follow your caregiver's dietary instructions. Try low-impact exercise such as: Swimming. Water aerobics. Biking. Walking. Morning stiffness is often relieved by a warm shower. Put your joints through regular qbgnw-kz-wqztyq. SEEK MEDICAL CARE IF: You do not feel better in 24 hours or are getting worse. You have side effects to medications, or are not getting better with treatment. SEEK IMMEDIATE MEDICAL CARE IF: You have a fever. You develop severe joint pain, swelling or redness. Many joints are involved and become painful and swollen. There is severe back pain and/or leg weakness. You have loss of bowel or bladder control. This information is not intended to replace advice given to you by your health care provider. Make sure you discuss any questions you have with your health care provider. Document Released: 03/15/2005 Document Revised: 02/26/2015 Document Reviewed: Exit[employer] Patient Information 2016 [employer]. No follow up information was provided. Extracted from: Title: Office Visit Note Author: Frandy Arzate MD Date: 09/17/15 Assessment/Plan Abnormal blood sugar This issue was reviewed, appears stable, and current therapy continued except as mentioned. Appropriate lab was reviewed from the most recent appropriate entry and lab was ordered if needed in the cpoe/nursing orders, and follow up recommended generally in 90 days and no later then six months. Lab pending. Adenoca of rectum The patient's issue is nearly or completely resolved. There is no further issues or testing desired by them at this time. Released from Dr. Inderjit Shearer. Needs opium -- see below. Bowel dysfunction Opium deodorized 10% oral tincture one cc po tid fifty cc every sixty days prn. Narcotic contract given. Chronic diarrhea Ordered: C. Difficile toxin B by PCR ndsc eval intstinal [place] [id number] Office Visit Level 3 Est 00936 Stool Culture w/ Campy and Shigatoxin [1] Colon cancer The patient's issue is nearly or completely resolved. There is no further issues or testing desired by them at this time. Degenerative joint disease (DJD) of hip This issue was reviewed, appears stable, and current therapy continued except as mentioned. Appropriate lab was reviewed from the most recent appropriate entry and lab was ordered if needed in the cpoe/nursing orders, and follow up recommended generally in 90 days and no later then six months. Edema Lab pending. Support hose recommended and effective already whenshe uses. [facility]. History of SCC (squamous cell carcinoma) of skin The patient's issue is nearly or completely resolved. There is no further issues or testing desired by them at this time. Assessment/Plan 1.Squamous cell carcinoma of trunk Options/risks/benefits of the procedure were discussed and explained and signed consent was obtained. Specifically discussed risks of scarring, abnormal scarring, skin changes such as color or texture changes, recurrence, incomplete removal, bleeding, infection, need for further treatment, damage to surrounding structures including nerves and other unexpected risks/outcomes of these types of skin procedures. The patient agreed to proceed with treatment. The sites were confirmed with the patient. Final timeout performed. [2] Hypertension This issue was reviewed, appears stable, and current therapy continued except as mentioned. Appropriate lab was reviewed from the most recent appropriate entry and lab was ordered if needed in the cpoe/nursing orders, and follow up recommended generally in 90 days and no later then six months. The patient reports their blood pressure has been stable at home and is not having any significant or related problems. There has been no chest pain, chest pressure, soa/vogel. Malignant melanoma Seeing Dr. Mccarty in [facility] Derm and being referred to [facility]'s surgery. Has been sent before but she had to canceldue to family illness. Orders: opium, See Instructions, 1.0 ml po tid, # 50 mL, 0 Refill(s)
--- OUTSIDE RECORDS SUMMARY | 2016-07-13 09:37 | XMS REPORT | Referral Summary ---
Author Author [facility] Organization [facility] Address Unknown Phone Unavailable Care Team Providers Care Wood Tool Maker Name Role Phone Noah Arzate Primary Care Physician [phone] Encounter Date(s): 06/24/14 - 06/24/14 [facility] [address] [facility] [address] Discharge Diagnosis: Lumbar disc herniation Discharge Diagnosis: ENTHESOPATHY OF HIP REGION Discharge Diagnosis: Degenerative joint disease (DJD) of hip Discharge Diagnosis: Lumbar spinal stenosis Discharge Disposition: 01-Home or Self Care Attending Physician: [place] Calohun APRN Admitting Physician: [place] Calhoun APRN Referring Physician: Roxanna Gonzalez DO Vital Signs Most recent to 1 oldest [Reference Range]: Temperature Oral 36.6 degC [35.8-37.3 degC] (06/24/14 8:55 AM) Blood Pressure 132/84 mmHg [90-140/60-90 mmHg] (06/24/14 8:55 AM) Problem List Condition Effective Dates Status [...] tabs Oral TID, # 90 tabs, eRx: [facility], 1 tabs Oral TID Start [...] Daily, # 60 tabs, 3 Refill(s), Pharmacy: [facility] , 2 tabs Oral Daily Start Date: [...] Daily, # 30 tabs, 3 Refill(s), Pharmacy: [facility] , 1 tabs Oral Daily Start Date: 12/16/14 Status: Ordered Vitamin C 500 mg, Oral, qPM, 0 Refill(s) Start Date: 5/31/15 Status: Ordered Results No data available for [...] Extracted from: Title: Office Visit Note Author: Florida Calhoun APRN Date: 06/24/14 Assessment/Plan Degenerative joint disease (DJD) of hip ENTHESOPATHY OF HIP REGION Lumbar disc herniation Lumbar spinal stenosis This patient's plan of care was discussed with Dr. Rasheed she returns today for follow-up after having an L2-3 translaminar epidural steroid injection on April 30, 2014reports 100 percent relief of her symptoms continues. She returned again on May 18, 2014 for bilateral trochanteric bursa injections reporting 100 percent relief initially shedoes have some occasional left hip pain however overall she feels that her symptoms are still much improved and she still feels that she is benefiting from the injections. She reports she has a fourth surgery for colon cancer scheduled one week from today. She will follow-up on an as-needed basis for reevaluation of her hip pain low back pain and meralgia paresthetica. Encourage continuation of home exercise and stretching as tolerated. Patient is in agreement to the above plan of care.
--- OUTSIDE RECORDS SUMMARY | 2016-07-13 09:37 | XMS REPORT | Referral Summary ---
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 Discharge Disposition: 01-Home [...] tabs, 0 Refill(s), Pharmacy: [facility], 1 tabs Oral Daily,x90 days Start [...] q12hr, # 20 tabs, 0 Refill(s), Pharmacy: [facility] , 1 tabs Oral q12hr,x10 days [...] q12hr, # 20 tabs, 0 Refill(s), Pharmacy: [facility] , 1 tabs Oral q12hr Start Date: [...] Pharmacy: [facility] , 2 tabs Oral Daily Start Date: 08/25/14 Status: Ordered metoprolol tartrate 25 mg oral tablet 25 mg 1 tabs, Oral, BID, # 180 tabs, 1 Refill(s), Pharmacy: [facility] Start Date: 02/17/15 Stop Date: 08/16/15 Status: Ordered multivitamin 1 tabs, Oral, qPM, 0 Refill(s) Start Date: 03/18/14 Status: Ordered [place] 5 mg-325 mg oral tablet 1 -2 tabs, Oral, q4hr, Pain Moderate (4-6), 0 Refill(s) Start Date: 03/13/15 Status: Ordered omega-3 polyunsaturated fatty acids oral capsule 1 caps, Oral, Daily, # 100 caps, 0 Refill(s) Start Date: 03/11/15 Status: Ordered potassium chloride 20 mEq oral tablet, extended release 20 mEq 1 tabs, Oral, Daily, # 30 tabs, 3 Refill(s), Pharmacy: [facility] , 1 tabs Oral Daily Start [...] Visit Note Author: Rick Shearer MD Date: 10/06/14 Assessment/Plan Adenoca of rectum Ordered: Office Visit Level 2 Est 68070 XR Gastrografin Enema Cedillo syndrome We had a discussion about the pouchogram findings. My recommendation at this point is that we repeat the test in 2 months. If the fistula tracts are resolved or smaller, then it will be safe to reverse her ileostomy. All of her questions were addressed. I will see her again in 2 months. Ordered: Office Visit Level 2 Est 12526
--- OUTSIDE RECORDS SUMMARY | 2016-07-13 09:38 | XMS REPORT | Referral Summary ---
Author Author [facility] Organization [facility] Address Unknown Phone Unavailable Care Team Providers Care Stationary Plant Operators Name Role Phone Noah Arzate Primary Care Physician [phone] Encounter VC Date(s): 11/24/14 - 11/24/14 [facility], [address] [place] [address] Discharge Disposition: 01-Home or Self Care Attending Physician: Frandy Arzate MD Admitting Physician: Frandy Arzate MD Vital Signs Most recent to 1 oldest [Reference Range]: Blood Pressure 160/110 mmHg [90-140/60-90 mmHg] *HI* (11/24/14 10:29 AM) Problem List Condition Effective Dates Status [...] # 30 tabs, 0 Refill(s) Start Date: 11/24/14 Status: Ordered amLODIPine 5 mg oral tablet 5 mg 1 tabs, Oral, Daily, # 90 tabs, 0 Refill(s), Pharmacy: [facility], 1 tabs Oral Daily,x90 days Start Date: 11/24/14 Stop Date: 02/22/15 Status: Ordered aspirin 81 mg oral tablet 81 mg 1 tabs, Oral, qPM, # 30 tabs, 0 Refill(s) Start Date: 03/18/14 Status: Ordered Calcium 600+D 1 tabs, Oral, Daily, 0 Refill(s) Start Date: 03/18/14 Status: Ordered chlorthalidone 25 mg oral tablet 25 mg 1 tabs, Oral, Daily, # 90 tabs, 0 Refill(s), Pharmacy: [facility], 1 tabs Oral Daily,x90 days Start Date: 11/24/14 Stop Date: 02/22/15 Status: Ordered Claritin 10 mg, Oral, Daily, as needed for allergy symptoms, 0 Refill(s) Start Date: 06/24/14 Status: Ordered ferrous sulfate 325 mg (65 mg elemental iron) oral delayed release tablet See Instructions, 1 tabs Oral TID, # 90 tabs, eRx: [facility], 1 tabs Oral TID Start Date: 10/14/14 Status: Ordered Fish Oil 1200 mg oral capsule 1,200 mg 1 caps, Oral, qPM, 0 Refill(s) Start Date: 03/18/14 Status: Ordered Flonase 50 mcg/inh nasal spray 2 sprays, Nasal, Daily, Seasonal Allergy Symptoms, 0 Refill(s) Start Date: 06/24/14 Status: Ordered Imodium A-D 2 mg oral [...] Daily, # 60 tabs, 3 Refill(s), Pharmacy: [facility] , 2 tabs Oral [...] Daily, # 30 tabs, 3 Refill(s), Pharmacy: [facility] , 1 tabs Oral Daily Start Date: 08/25/14 Status: Ordered Vitamin C 500 mg, Oral, qPM, 0 Refill(s) Start Date: 07/19/14 Status: Ordered Results Hematology Most recent to 1 oldest [Reference Range]: WBC [4.8-10.8 8.8 10*3/uL 10*3/uL] (11/24/14 11:16 AM) RBC [4.00-5.20] 4.14 (11/24/14 11:16 AM) Hgb [12.0-16.0 12.4 gm/dL gm/dL] (11/24/14 11:16 AM) Hct [37.0-47.0 %] 38.7 % (11/24/14 11:16 AM) MCV [82.0-99.0 fL] 93.5 fL (11/24/14 11:16 AM) MCH [27.0-32.0 pg] 30.0 pg (11/24/14 11:16 AM) MCHC [32.0-36.0 32.0 gm/dL gm/dL] (11/24/1416 AM) RDW [11.5-14.5 %] 15.9 % *HI* (11/24/1416 AM) Platelet [150-400 262 10*3/uL 10*3/uL] (11/24/1416 AM) MPV [8.8-14.8 fL] 9.7 fL (11/24/1416 AM) Immature 0.1 % Granulocytes (11/24/14) [0.0-1.0 %] Neutrophils [51-75 60 % %] (11/24/14 AM) Lymphocytes [20-46 27 % %] (11/24/14 AM) Monocytes [4-11 %] 11 % (11/24/1416 AM) Eosinophils [0-4 %] 1 % (11/24/14 AM) Basophils [0-2 %] 1 % (11/24/1416 AM) Neutro Absolute 5.27 10*3 [1.90-7.00 10*3] (11/24/1416 AM) Lymph Absolute 2.39 10*3 [0.80-3.30 10*3] (11/24/14:16 AM) Carroll Absolute 0.97 10*3 [0.30-1.00 10*3] (11/24/1416 AM) Eos Absolute 0.11 10*3 [0.00-0.50 10*3] (11/24/1416 AM) Baso Absolute 0.05 10*3 [0.00-0.20 10*3] (11/24/1416 AM) Chemistry Most recent to 1 oldest [Reference Range]: Sodium Lvl [135-144 141 mEq/L mEq/L] (11/24/1416 AM) Potassium Lvl 3.7 mEq/L [3.5-5.2 mEq/L] (11/24/14:16 AM) Chloride [99-111 104 mEq/L mEq/L] (11/24/1416 AM) CO2 [22-31 mEq/L] 30 mEq/L (11/24/1416 AM) AGAP [3-20] 7 (11/24/14 AM) BUN [10-20 mg/dL] 16 mg/dL (11/24/1416 AM) Glucose Lvl [70-99 88 mg/dL mg/dL] (11/24/1416 AM) Creatinine Lvl 0.82 mg/dL [0.57-1.11 mg/dL] (11/24/14 AM) eGFR [>60 mL/min] >60 mL/min 1 (11/24/14 AM) Calcium Lvl 9.6 mg/dL [8.9-10.5 mg/dL] (11/24/14 AM) Albumin Lvl [3.4-4.8 3.9 gm/dL gm/dL] (11/24/14 AM) Total Protein 6.6 gm/dL [6.2-8.1 gm/dL] (11/24/14 AM) Globulin [1.8-4.0 2.7 gm/dL gm/dL] (11/24/1416 AM) ALT [0-55 U/L] 37 U/L (11/24/14 AM) AST [5-34 U/L] 23 U/L (11/24/1416 AM) Alk Phos [40-150 74 U/L U/L] (11/24/14 AM) Bili Total [0.2-1.2 0.4 mg/dL mg/dL] (11/24/14 AM) TSH with Reflex Free 1.14 T4 [0.35-4.94] (11/24/1416 AM) 1Result Comment: Multiply eGFR results by 1.21 for race. Urinalysis Most recent to 1 oldest [Reference Range]: UA Color Yellow (11/24/14:26 AM) UA Appear Cloudy *ABN* (11/24/14: AM) UA pH [5.0-8.0] 6.5 (11/24/14:26 AM) UA Leuk Est Pos 2+ [Negative] *ABN* (11/24/14 11:26 AM) UA Nitrite Negative [Negative] (11/24/14 11:26 AM) UA Protein Negative [Negative] (11/24/14 11:26 AM) UA Glucose Negative [Negative] (11/24/14 11:26 AM) UA Ketones Negative [Negative] (11/24/14 11:26 AM) UA Urobilinogen 0.2 mg/dL [<1.0 mg/dL] (11/24/14 11:26 AM) UA Bili [Negative] Negative (11/24/14 11:26 AM) UA Blood [Negative] Negative (11/24/14 11:26 AM) UA Spec Grav 1.019 [1.003-1.030] (11/24/14 11:26 AM) Type Voided (11/24/14 11:26 AM) UA WBC [0-4] 5-10 *ABN* (11/24/14 11:26 AM) UA RBC [0-4] 5-10 *ABN* (11/24/14 11:26 AM) Epithelial Cells 2-5 (11/24/14 11:26 AM) UA Hyal Cast [0-3] 1-3 (11/24/14 11:26 AM) Immunizations Vaccine Date Refusal Reason influenza virus [...] Author: Frandy Arzate MD Date: Family Medicine Anemia, Nonspecific Anemia is a condition in which the concentration of red blood cells or hemoglobin in the blood is below normal. Hemoglobin is a substance in red blood cells that carries oxygen to the tissues of the body. Anemia results in not enough oxygen reaching these tissues. CAUSES Common causes of anemia include: Excessive bleeding. Bleeding may be internal or external. This includes excessive bleeding from periods (in women) or from the intestine. Poor nutrition. Chronic kidney, thyroid, and liver disease. Bone marrow disorders that decrease red blood cell production. Cancer and treatments for cancer. HIV, AIDS, and their treatments. Spleen problems that increase red blood cell destruction. Blood disorders. Excess destruction of red blood cells due to infection, medicines, and autoimmune disorders. SIGNS AND SYMPTOMS Minor weakness. Dizziness. Headache. Palpitations. Shortness of breath, especially with exercise. Paleness. Cold sensitivity. Indigestion. Nausea. Difficulty sleeping. Difficulty concentrating. Symptoms may occur suddenly or they may develop slowly. DIAGNOSIS Additional blood tests are often needed. These help your health care provider determine the best treatment. Your health care provider will check your stool for blood and look for other causes of blood loss. TREATMENT Treatment varies depending on the cause of the anemia. Treatment can include: Supplements of iron, vitamin B12, or folic acid. Hormone medicines. A blood transfusion. This may be needed if blood loss is severe. Hospitalization. This may be needed if there is significant continual blood loss. Dietary changes. Spleen removal. HOME CARE INSTRUCTIONS Keep all follow-up appointments. It often takes many weeks to correct anemia, and having your health care provider check on your condition and your response to treatment is very important. SEEK IMMEDIATE MEDICAL CARE IF: You develop extreme weakness, shortness of breath, or chest pain. You become dizzy or have trouble concentrating. You develop heavy vaginal bleeding. You develop a rash. You have bloody or black, tarry stools. You faint. You vomit up blood. You vomit repeatedly. You have abdominal pain. You have a fever or persistent symptoms for more than 23 days. You have a fever and your symptoms suddenly get worse. You are dehydrated. MAKE SURE YOU: Understand these instructions. Will watch your condition. Will get help right away if you are not doing well or get worse. Document Released: 03/15/2005 Document Revised: 10/08/2013 Document Reviewed: [facility] Patient Information 2015 [employer] [facility]. This information is not intended to replace advice given to you by your health care provider. Make sure you discuss any questions you have with your health care provider. No follow up information was provided. Extracted from: Title: Office Visit Note Author: Frandy Arzate MD Date: 11/24/14 Assessment/Plan Anemia Lab pending. The patient was given the vaccines requested per protocol and according to those needed for school/family/college/etc. Flu vaccine. Colon cancer This issue is stable and appropriate refills, lab, and f/u have been discussed. Considerseeing [facility] once when willing. H/O ileostomy This issue is stable and appropriate refills, lab, and f/u have been discussed. Seeing Dr. Shearer. Hypertension Restart norvasc 10mg po daily and chlorthalidone 25mg po daily. Monitor bp and call report. Recheck in 30 days. Get records. 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 Seeing Dr. Shearer. Rectal cancer This issue is stable and appropriate refills, lab, and f/u have been discussed. Seeing Dr. Shearer. Tobacco user Smoking Cessatin was discussed. The patient is welcome to f/u for therapy or medication for smoking cessation at any time that they are willing to quit. Orders: chlorthalidone, 25 mg 1 tabs, Oral, Daily, # 30 tabs, 0 Refill(s), other reason (Rx)
--- OUTSIDE RECORDS SUMMARY | 2016-07-13 09:38 | XMS REPORT | Referral Summary ---
Author Author [facility] Organization [facility] Address Unknown Phone Unavailable Care Team Providers Care Bookstore Clerk Name Role Phone Noah Arzate Primary Care Physician [phone] Encounter VC Date(s): 02/02/15 - 02/02/15 [facility] [address] [place], [place] [address] Discharge Diagnosis: Adenoca of rectum Discharge [...] Daily, # 90 tabs, 0 Refill(s), Pharmacy: [facility], 1 tabs Oral Daily,x90 days Start [...] Daily, # 90 tabs, 0 Refill(s), Pharmacy: [facility], 1 tabs Oral Daily,x90 days Start [...] Chlorthalidone, # 90 tabs, 0 Refill(s), Pharmacy: [facility], 1 tabs Oral Daily,Instr:APPT [...] Daily, # 60 tabs, 3 Refill(s), Pharmacy: [facility] , 2 tabs Oral [...] Daily, # 30 tabs, 3 Refill(s), Pharmacy: [facility] , 1 tabs Oral [...] Visit Note Author: Rick Shearer MD Date: 02/02/15 Assessment/Plan Adenoca of rectum She has done well. She is ready for an ileostomy closure. I did discuss this with her. Risks and benefits were reviewed. All of her questions were answered. She has elected to proceed. Ordered: Postoperative Est [id number]
--- OUTSIDE RECORDS SUMMARY | 2016-07-13 09:38 | XMS REPORT | Referral Summary ---
Author Organization Unknown Address Unknown Phone Unavailable Encounter VC Date(s): 03/18/14 - 03/18/14 [facility] Orthoped[facility] [address] [place], [place] [address] Discharge Diagnosis: Hip bursitis Discharge Diagnosis: Hip pain Discharge Disposition: Home or Self Care Attending Physician: Mathieu Benjamin MD Admitting Physician: Mathieu Benjamin MD Vital Signs No data available for this section Problem List Condition Effective Dates Status Health Status Informant Hypertension(Confirm Active ed) Colon 1998 Active cancer(Confirmed)1 Morbid Active patient obesity(Confirmed) Tobacco Active patient user(Confirmed) 1SGY X3 Allergies, [...] Procedures Procedure Date Related Diagnosis Body Site Cholecystectomy 1996 Colon Surgery X3 1971 colon surgery removal of cancer Gallbladder Hehisscence Repair X2 Hysterectomy Left hand surgery Social History Social History Type Response Smoking Status Former smoker; Type: Cigarettes; Total pack years: 8 Assessment and Plan No data available for this section
--- OUTSIDE RECORDS SUMMARY | 2016-07-13 09:38 | XMS REPORT | Referral Summary ---
Author Author [facility] Organization [facility] Address Unknown Phone Unavailable Care Team Providers Care Aerodynamics Teacher Name Role Phone Noah Arzate Primary Care Physician [phone] Encounter VC Date(s): 09/01/14 - 09/01/14 [facility] [address] [place], [place] [address] Discharge Diagnosis: Cedillo syndrome Discharge Diagnosis: Rectal cancer Discharge Disposition: 01-Home or Self Care Attending Physician: Rick Shearer MD Admitting Physician: Rick Shearer MD Referring Physician: Roxanna Gonzalez DO Vital Signs No data available for this section Problem List Condition Effective Dates Status Health Status Informant Acute Active pain(Confirmed) Adenoca of Active rectum(Confirmed) Anemia(Confirmed) Active At risk of pressure Resolved sore(Confirmed) Bowel Active dysfunction(Confirme d)1 ENTHESOPATHY OF HIP Active REGION(Confirmed) Rash(Confirmed) Active Fluid Resolved imbalance(Confirmed) 2 H/O Active ileostomy(Confirmed) Hypertension(Confirm Active ed) Impaired gas Resolved exchange(Confirmed)3 Impaired skin Active integrity(Confirmed) 4, 5 Elevated blood Active sugar(Confirmed) Lumbar Active radiculopathy(Confir med) Cedillo Active syndrome(Confirmed) Colon 1998 Active cancer(Confirmed)6 Rectal Active cancer(Confirmed) MERALGIA Active PARESTHETICA(Confirm ed) [...] Impaired Gas Exchange Plan of Care 4Problem updated automatically by system based on initiation of Impaired Skin Integrity Plan of Care 5Problem added automatically by system based on initiation of Impaired Skin Integrity Plan of Care 6SGY X3 Allergies, Adverse Reactions, Alerts Substance Reaction [...] [facility], 1 tabs Oral Daily,x90 days Start Date: [...] Daily, # 90 tabs, 1 Refill(s), Pharmacy: [facility], 1 tabs Oral Daily Start Date: 02/17/15 Status: Ordered lutein 20 mg oral tablet 20 mg 1 tabs, Oral, Daily, # 30 tabs, 0 Refill(s) Start Date: 03/18/14 Status: Ordered magnesium oxide 400 mg (241.3 mg elemental magnesium) oral tablet 800 mg 2 tabs, Oral, Daily, # 60 tabs, 3 Refill(s), Pharmacy: [facility] , 2 tabs Oral Daily Start Date: 08/25/14 Status: Ordered metoprolol tartrate 25 mg oral tablet 25 mg 1 tabs, Oral, BID, # 180 tabs, 1 Refill(s), Pharmacy: [facility] Start Date: 02/17/15 Stop Date: 08/16/15 Status: Ordered multivitamin 1 tabs, Oral, qPM, 0 Refill(s) Start Date: 03/18/14 Status: Ordered [place] 5 mg-325 mg oral tablet 1 -2 tabs, Oral, q4hr, Pain Moderate (4-6), 0 Refill(s) Start Date: 03/13/15 Status: Ordered omega-3 polyunsaturated fatty acids oral capsule 1 caps, Oral, Daily, # 100 caps, 0 Refill(s) Start Date: 03/11/15 Status: Ordered potassium chloride 20 mEq oral tablet, extended release 20 mEq 1 tabs, Oral, Daily, # 30 tabs, 3 Refill(s), Pharmacy: [facility] , 1 tabs Oral Daily Start Date: 12/16/14 Status: Ordered Reglan 10 mg oral tablet 10 mg 1 tabs, Oral, q6hr, Nausea or Vomiting, # 30 tabs, 0 Refill(s), other reason (Rx) Start Date: 03/13/15 Stop Date: 04/13/15 Status: Ordered Vitamin C 500 mg, Oral, [...] Visit Note Author: Rick Shearer MD Date: 09/06/14 Assessment/Plan Cedillo syndrome Ordered: Postoperative Est [id number] Rectal cancer She is doing well. However, the drain is not ready to come out. It should be within the next one or 2 weeks. She is to let me know when the output is less than 30 mL a day, and then I'll have her come into the office to have the drain removed. All of her questions were answered. Ordered: Postoperative Est [id number]
--- OUTSIDE RECORDS SUMMARY | 2016-07-13 09:38 | XMS REPORT | Referral Summary ---
Author Author [facility] Organization [facility] Address Unknown Phone Unavailable Care Team Providers Care Tile Burner Name Role Phone Noah Arzate Primary Care Physician [phone] Encounter VC Date(s): 12/10/14 - 12/10/14 [facility], [address] [place] [address] Discharge Disposition: 01-Home or Self [...] Daily, # 90 tabs, 0 Refill(s), Pharmacy: [facility], 1 tabs Oral Daily,x90 days Start Date: [...] Daily, # 90 tabs, 0 Refill(s), Pharmacy: [facility], 1 tabs Oral Daily,x90 days Start Date: 11/24/14 Stop Date: 02/22/15 Status: Ordered Claritin 10 mg, Oral, Daily, as needed for allergy symptoms, 0 Refill(s) Start Date: 06/24/14 Status: Ordered ferrous sulfate 325 mg (65 mg elemental iron) oral delayed release tablet See Instructions, 1 tabs Oral TID, # 90 tabs, eRx: [facility], 1 tabs Oral TID Start [...] Chlorthalidone, # 90 tabs, 0 Refill(s), Pharmacy: [facility], 1 tabs Oral Daily,Instr:APPT in [...] Daily, # 60 tabs, 3 Refill(s), Pharmacy: [facility] , 2 tabs Oral Daily [...] Daily, # 30 tabs, 3 Refill(s), Pharmacy: [facility] , 1 tabs Oral Daily [...] Bursa Injection under 05/18/14 US L2-3 Translaminar 3/12/15 Cholecystectomy 1996 Colon Surgery X3 1971 colon [...] Released: 02/05/2006 Document Revised: 06/22/2014 Document Reviewed: [employer] Patient Information 2015 [employer]. This information is not intended to replace [...] Daily, # 90 tabs, 0 Refill(s), Pharmacy: [facility], 1 tabs Oral Daily,x90 days nebivolol, 2.5 mg 0.5 tabs, Oral, Daily, # 15 tabs, 0 Refill(s), samples given to patient (Rx)
--- OUTSIDE RECORDS SUMMARY | 2016-07-13 09:38 | XMS REPORT | Referral Summary ---
Author Author [facility] Organization [facility] Address Unknown Phone Unavailable Care Team Providers Care Jig Grinder Set Up Operator Name Role Phone Leilanimariela Noah Primary Care Physician [phone] Encounter VC Date(s): 06/25/15 - 06/25/15 [facility] [address] [place] [address] Discharge Disposition: 01-Home or Self Care Attending Physician: Don Mccarty MD Vital Signs No data available for [...] appointment, # 30 tabs, 0 Refill(s), Pharmacy: [facility], TAKE 1 TABLET BY MOUTH [...] q12hr, # 42 tabs, 0 Refill(s), Pharmacy: [facility] , 1 tabs Oral q12hr,x21 [...] q12hr, # 42 tabs, 0 Refill(s), Pharmacy: [facility] , 1 tabs Oral q12hr,x21 days Start Date: 05/17/15 Stop Date: 06/07/15 Status: Ordered Flonase 50 mcg/inh nasal spray 2 sprays, Nasal, Daily, Seasonal Allergy Symptoms, 0 Refill(s) Start Date: 06/24/14 Status: Ordered hydrochlorothiazide 25 mg oral tablet 25 mg 1 tabs, Oral, Daily, # 90 tabs, 1 Refill(s), Pharmacy: [facility], 1 tabs Oral Daily Start Date: 02/17/15 Status: Ordered hydrocortisone 2.5% topical cream 1 bc, Topical, TID, prn as needed, # 30 g, 0 Refill(s), Pharmacy: [facility] Start Date: 06/14/15 Status: Ordered lutein 20 mg oral tablet 20 mg 1 tabs, Oral, Daily, # 30 tabs, 0 Refill(s) Start Date: 03/18/14 Status: Ordered magnesium oxide 400 mg (241.3 mg elemental magnesium) oral tablet 800 mg 2 tabs, Oral, Daily, # 60 tabs, 3 Refill(s), Pharmacy: [facility] , 2 tabs Oral Daily Start Date: 08/25/14 Status: Ordered metoprolol tartrate 25 mg oral tablet 25 mg 1 tabs, Oral, BID, # 180 tabs, 1 Refill(s), Pharmacy: [facility] Start Date: 02/17/15 Stop Date: 08/16/15 Status: Ordered multivitamin 1 tabs, Oral, qPM, 0 Refill(s) Start Date: 03/18/14 Status: Ordered [place] 5 mg-325 mg oral tablet 1 -2 [...] Daily, # 30 tabs, 3 Refill(s), Pharmacy: [facility] , 1 tabs Oral Daily Start Date: [...]
--- OUTSIDE RECORDS SUMMARY | 2016-07-13 09:38 | XMS REPORT | Referral Summary ---
Author Author [facility] Organization [facility] Address Unknown Phone Unavailable Care Team Providers Care Buzzsaw Operator Name Role Phone Noah Arzate Primary Care Physician [phone] Encounter Date(s): 12/23/15 - 12/23/15 [facility] [address] [place] [address] Discharge Diagnosis: Hypertrophic scar Discharge Disposition: 01-Home or Self Care Attending [...] Daily, # 90 tabs, 1 Refill(s), Pharmacy: [facility], 1 tabs Oral [...] Daily, # 90 tabs, 1 Refill(s), Pharmacy: [facility], 1 tabs Oral Daily Start Date: 09/17/15 Status: Ordered hydrocortisone 2.5% topical cream 1 bc, Topical, TID, prn as needed, # 30 g, 0 Refill(s), Pharmacy: [facility] Start Date: 06/14/15 Status: Ordered Lomotil [...] BID, # 180 tabs, 1 Refill(s), Pharmacy: [facility] Start Date: 09/17/15 Stop Date: 03/15/16 [...] Daily, # 30 tabs, 3 Refill(s), Pharmacy: [facility] , 1 tabs Oral Daily Start Date: 12/16/14 Status: Ordered Vitamin C 500 mg, Oral, qPM, 0 Refill(s) Start Date: 07/19/14 Status: Ordered Results No data available for this section Immunizations Vaccine Date Refusal Reason influenza virus vaccine, inactivated 11/24/14 pneumococcal 23-polyvalent vaccine 03/19/15 Procedures Procedure Date Related Diagnosis Body Site Injection, intralesional; up to and including 12/23/15 7 lesions Closure Ileostomy1 03/11/15 LEFT L2-3/L4-5 TRANSFORAMINAL 11/11/14 [...] Visit Note Author: Don Mccarty MD Date: 12/23/15 Assessment/Plan 1.Hypertrophic scar -Intralesional kenalog injection today -The skin was cleansed with an alcohol pad.0.5 cc of [id number] mg/cc was injected into the lesion. The pt tolerated the procedure well and left the clinic in excellent condition Ordered: Injection intralesional up to + includ 7 lesions [id number] -Pt has a history of SCC and MIS with recent skin examination 1 month ago, will repeat skin examination in 2-3 months. Pt encouraged to call to schedule an earlier appointment for any concerning new lesions or changes to existing lesions.
--- OUTSIDE RECORDS SUMMARY | 2016-07-13 09:38 | XMS REPORT | Continuity of Care Document ---
Author Author [facility] Organization [facility] Address Unknown Phone Unavailable Support Name Relationship Address Phone WILLEM CHRISTIANSEN Next Of Kin [address] [place] [address] Unavailable Insurance Providers Payer Name Policy Number Subscriber Name Relationship Medicare [id number] Edgar Christiansen 19 Self Other A Insurance [id number] Edgar Christiansen 19 Self Problems No Known Problems or Medical conditions. Family History History Response Recorded Date/Time HX of Orthopedic Surgeries N 09/02/12 10:11am Hx Abdominal Surgery Y COLON SURGERY FOR CA X3; [place] 09/02/12 10:11am HX Cerebrovascular Accident N 09/02/12 10:11am Hx Seizures N 09/02/12 10:11am Hx Angina N 09/02/12 10:11am Hx Congestive Heart Failure N 09/02/12 10:11am Hx Heart Attack N 09/02/12 10:11am Hx Hypertension Y 09/02/12 10:11am Hx Chronic Obstructive Pulmonary Disease (COPD) N 09/02/12 10:11am Hx Diabetes N 09/02/12 10:11am Hx Clotting Problems N 09/02/12 10:11am Hx Cancer Y COLON CANCER 09/02/12 10:11am Hx MRSA N 09/02/12 10:11am HX of Cardiac Surgeries N 09/02/12 10:11am HX of Reproductive Surgeries Y HYST 09/02/12 10:11am HX of Endocrine Surgeries N 09/02/12 10:11am HX of Throat Surgery N 09/02/12 10:11am HX of Neurological Surgeries N 09/02/12 10:11am HX of Genitourinary Surgeries N 09/02/12 10:11am Social History History Response Recorded Date/Time Smoking Status Former smoker 09/02/12 10:11am Chewing Tobacco Status N 09/02/12 10:11am Hx Substance Use N 09/02/12 10:11am Hx Alcohol Use N 09/02/12 10:11am Has the pt used tobacco in the last 12 months N 09/02/12 10:11am Allergies, Adverse Reactions, Alerts Allergen Type Severity Reaction Last Updated morphine Allergy Unknown HIVES 09/02/12 Medications Medication Dose Units Route Sig Qty Days Estradiol (Estrace) 1 Mg PO DAILY Lutein 20 Mg PO DAILY Fish Oil/Dha/Epa (Fish Oil 1,200 Mg Fish Oil) 1 Each PO DAILY Multivitamins (Multivitamin) 1 Tab PO DAILY Calcium Carbonate (Calcium) 1500 Mg PO DAILY Ibuprofen 2 Mg DAILY Aspirin 81 Mg PO DAILY Chlorthalidone 12.5 Mg PO DAILY Amlodipine Besylate DAILY Losartan Potassium DAILY Immunizations Name Given Type Hx Influenza Vaccination Y 10 YRS AGO H Hx Pneumococcal Vaccination N H Response Recorded Date/Time Status not known Unknown Results No Known Relevant Diagnostic Tests, Laboratory Data and/or Discharge Summary. Procedures Procedure Code Date DIAGNOSTIC SIGMOIDOSCOPY 78365 09/03/12
--- OUTSIDE RECORDS SUMMARY | 2016-07-13 09:38 | XMS REPORT | Referral Summary ---
Author Author [facility] Organization [facility] Address Unknown Phone Unavailable Care Team Providers Care Leadership Development Instructor Name Role Phone Noah Arzate Primary Care Physician [phone] Encounter VC Date(s): 02/17/15 - 02/17/15 [facility], [address] [place] [address] Discharge Disposition: 01-Home or Self Care Attending Physician: Frandy Arzate MD Admitting Physician: Frandy Arzate MD Vital Signs Most recent to 1 oldest [Reference Range]: Blood Pressure 110/70 mmHg [90-140/60-90 mmHg] (02/17/15 8:34 AM) Problem List Condition Effective Dates Status [...] # 90 tabs, 1 Refill(s), Pharmacy: [facility], 1 tabs Oral Daily Start Date: [...] Daily, # 60 tabs, 3 Refill(s), Pharmacy: [facility] , 2 tabs Oral Daily Start Date: 08/25/14 Status: Ordered Metamucil Oral, 5 pills tid, 0 Refill(s) Start Date: 10/20/14 Status: Ordered metoprolol tartrate 25 mg oral tablet 25 mg 1 tabs, Oral, BID, # 180 tabs, 1 Refill(s), Pharmacy: [facility] Start Date: 02/17/15 Stop Date: 08/16/15 Status: Ordered multivitamin 1 tabs, Oral, qPM, 0 Refill(s) Start Date: 03/18/14 Status: Ordered potassium chloride 20 mEq oral tablet, extended release 20 mEq 1 tabs, Oral, Daily, # 30 tabs, 3 Refill(s), Pharmacy: [facility] , 1 tabs Oral Daily Start Date: 12/16/14 Status: Ordered Vitamin C 500 mg, Oral, qPM, 0 Refill(s) Start Date: 07/19/14 Status: Ordered Results Urinalysis Most recent to 1 oldest [Reference Range]: UA Color Yellow (02/17/15 9:00 AM) UA Appear Clear (02/17/15 9:00 AM) UA pH [5.0-8.0] 7.5 (02/17/15 9:00 AM) UA Leuk Est Pos 1+ [Negative] *ABN* (02/17/15 9:00 AM) UA Nitrite Negative [Negative] (02/17/15 9:00 AM) UA Protein Negative [Negative] (02/17/15 9:00 AM) UA Glucose Negative [Negative] (02/17/15 9:00 AM) UA Ketones Negative [Negative] (02/17/15 9:00 AM) UA Urobilinogen 0.2 mg/dL [<=1.0 mg/dL] (02/17/15 9:00 AM) UA Bili [Negative] Negative (02/17/15 9:00 AM) UA Blood [Negative] Negative (02/17/15 9:00 AM) UA Spec Grav 1.020 [1.003-1.030] (02/17/15 9:00 AM) Type Voided (02/17/15 9:00 AM) UA WBC [0-4] 2-4 (02/17/15 9:00 AM) UA RBC [0-2] None seen (02/17/15 9:00 AM) Epithelial Cells 2-5 (02/17/15 9:00 AM) UA Bacteria Rare (02/17/15 9:00 AM) UA Mucous Present (02/17/15 9:00 AM) Immunizations Vaccine Date Refusal Reason influenza [...] Patient Education Author: Frandy Arzate MD Date: Allergy Allergies Allergies may happen from anything your body is sensitive to. This may be food, medicines, pollens, chemicals, and nearly anything around you in everyday life that produces allergens. An allergen is anything that causes an allergy producing substance. Heredity is often a factor in causing these problems. This means you may have some of the same allergies as your parents. Food allergies happen in all age groups. Food allergies are some of the most severe and life threatening. Some common food allergies are cow's milk, seafood , eggs, nuts, wheat, and soybeans. SYMPTOMS Swelling around the mouth. An itchy red rash or hives. Vomiting or diarrhea. Difficulty breathing. SEVERE ALLERGIC REACTIONS ARE LIFE-THREATENING. This reaction is called anaphylaxis. It can cause the mouth and throat to swell and cause difficulty with breathing and swallowing. In severe reactions only a trace amount of food (for example, peanut oil in a salad) may cause within seconds. Seasonal allergies occur in all age groups. These are seasonal because they usually occur during the same season every year. They may be a reaction to molds , grass pollens, or tree pollens. Other causes of problems are house dust mite allergens, pet dander, and mold spores. The symptoms often consist of nasal congestion, a runny itchy nose associated with sneezing, and tearing itchy eyes. There is often an associated itching of the mouth and ears. The problems happen when you come in contact with pollens and other allergens. Allergens are the particles in the air that the body reacts to with an allergic reaction. This causes you to release allergic antibodies. Through a chain of events, these eventually cause you to release histamine into the blood stream. Although it is meant to be protective to the body, it is this release that causes your discomfort. This is why you were given anti-histamines to feel better. If you are unable to pinpoint the offending allergen, it may be determined by skin or blood testing. Allergies cannot be cured but can be controlled with medicine. Hay fever is a collection of all or some of the seasonal allergy problems. It may often be treated with simple lbvb-itt-mbxsgib medicine such as diphenhydramine. Take medicine as directed. Do not drink alcohol or drive while taking this medicine. Check with your caregiver or package insert for child dosages. If these medicines are not effective, there are many new medicines your caregiver can prescribe. Stronger medicine such as nasal spray, eye drops, and corticosteroids may be used if the first things you try do not work well. Other treatments such as immunotherapy or desensitizing injections can be used if all else fails. Follow up with your caregiver if problems continue. These seasonal allergies are usually not life threatening. They are generally more of a nuisance that can often be handled using medicine. HOME CARE INSTRUCTIONS If unsure what causes a reaction, keep a diary of foods eaten and symptoms that follow. Avoid foods that cause reactions. If hives or rash are present: Take medicine as directed. You may use an rtpz-atl-wiozjvj antihistamine (diphenhydramine) for hives and itching as needed. Apply cold compresses (cloths) to the skin or take baths in cool water. Avoid hot baths or showers. Heat will make a rash and itching worse. If you are severely allergic: Following a treatment for a severe reaction, hospitalization is often required for closer follow-up. Wear a medic-alert bracelet or necklace stating the allergy. You and your family must learn how to give adrenaline or use an anaphylaxis kit. If you have had a severe reaction, always carry your anaphylaxis kit or EpiPen with you. Use this medicine as directed by your caregiver if a severe reaction is occurring. Failure to do so could have a fatal outcome. SEEK MEDICAL CARE IF: You suspect a food allergy. Symptoms generally happen within 30 minutes of eating a food. Your symptoms have not gone away within 2 days or are getting worse. You develop new symptoms. You want to retest yourself or your child with a food or drink you think causes an allergic reaction. Never do this if an anaphylactic reaction to that food or drink has happened before. Only do this under the care of a caregiver. SEEK IMMEDIATE MEDICAL CARE IF: You have difficulty breathing, are wheezing, or have a tight feeling in your chest or throat. You have a swollen mouth, or you have hives, swelling, or itching all over your body. You have had a severe reaction that has responded to your anaphylaxis kit or an EpiPen. These reactions may return when the medicine has worn off. These reactions should be considered life threatening. MAKE SURE YOU: Understand these instructions. Will watch your condition. Will get help right away if you are not doing well or get worse. Document Released: 05/01/2003 Document Revised: 06/02/2013 Document Reviewed: [facility] [place] Patient Information 2015 [facility], [facility]. This information is not intended to replace advice given to you by your health care provider. Make sure you discuss any questions you have with your health care provider. No follow up information was provided. Extracted from: Title: Office Visit Note Author: Frandy Arzate MD Date: 02/17/15 Assessment/Plan Adenoca of rectum This issue was reviewed, appears stable, and current therapy continued except as mentioned. Appropriate lab was reviewed from the most recent appropriate entry and lab was ordered if needed in the cpoe/nursing orders, and follow up recommended generally in 90 days and no later then six months. Pending pouch revision. Dysuria UA pending. Ordered: Urinalysis with Culture if Indicated Elevated blood sugar This issue was reviewed, appears stable, and current therapy continued except as mentioned. Appropriate lab was reviewed from the most recent appropriate entry and lab was ordered if needed in the cpoe/nursing orders, and follow up recommended generally in 90 days and no later then six months. Lab stable. Hypertension This issue was reviewed, appears stable, and current therapy continued except as mentioned. Appropriate lab was reviewed from the most recent appropriate entry and lab was ordered if needed in the cpoe/nursing orders, and follow up recommended generally in 90 days and no later then six months. Refill meds, doing well on recent changes. Lumbar spinal stenosis This issue was reviewed, appears stable, and current therapy continued except as mentioned. Appropriate lab was reviewed from the most recent appropriate entry and lab was ordered if needed in the cpoe/nursing orders, and follow up recommended generally in 90 days and no later then six months. [facility]. Orders: hydrochlorothiazide, 25 mg 1 tabs, Oral, Daily, # 90 tabs, 1 Refill(s) , Pharmacy: [facility], 1 tabs Oral Daily metoprolol, 25 mg 1 tabs, Oral, BID, # 180 tabs, 1 Refill(s), Pharmacy: [facility]
--- OUTSIDE RECORDS SUMMARY | 2016-07-13 09:38 | XMS REPORT | Referral Summary ---
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 Discharge Diagnosis: DDD (degenerative disc disease), lumbar Discharge Diagnosis: Lumbar spinal stenosis Discharge Diagnosis: MERALGIA PARESTHETICA Discharge Disposition: Home or Self Care Attending Physician: Neo Rasheed MD Admitting Physician: Neo Rasheed MD Referring Physician: Mathieu Benjamin MD Vital Signs Most recent to 1 oldest [Reference Range]: Blood Pressure 128/76 mmHg [90-140/60-90 mmHg] (04/24/14 10:30 AM) Problem List Condition Effective Dates Status Health Status Informant ENTHESOPATHY OF HIP Active REGION(Confirmed) Hypertension(Confirm Active ed) Colon 1998 Active cancer(Confirmed)1 MERALGIA Active PARESTHETICA(Confirm ed) Morbid [...] Extracted from: Title: Office Visit Note Author: Neo Rasheed MD Date: 04/24/14 Assessment/Plan Acute lumbar back pain Ordered: XR Spine Lumbosacral 2 or 3 Views DDD (degenerative disc disease), lumbar Degenerative joint disease (DJD) of hip ENTHESOPATHY OF HIP REGION Symptomatic Lumbar disc herniation Symptomatic Lumbar spinal stenosis Symptomatic Ordered: XR Spine Lumbosacral 2 or 3 Views LUMBOSACRAL SPONDYLOSIS WITHOUT MYELOPATHY Acquired spondylolisthesis Stable MERALGIA PARESTHETICA Symptomatic THORACIC OR LUMBOSACRAL NEURITIS OR RADICULITIS, UNSPECIFIED Symptomatic RECOMMENDATIONS: I explained to the patient she has multiple pathologies which are causing her symptoms. The pain in her lower back is coming from the L2-3 disc herniation and some of her radicular symptoms are from that as well. The pain in her right thigh is coming from meralgia paresthetica due to nerve entrapment of the right lateral cutaneous nerve. The pain in her hips is from bilateral trochanteric bursitis. Due to the patients significant symptoms which have persisted , I would recommend L2-3 translaminar epidural steroid injection under fluoroscopy, followed by bilateral trochanteric bursa injection under Ultrasound. I explained the rationale of the procedure as well as the possible complications and the patient voiced understanding and wishes to proceed. I will get x-rays sedation views of her lumbar spine today to assess the stability of her spondylolisthesis. We discussed the pathologies and the rosa of the meralgia paresthetica. She will make some efforts at weight reduction andwear looserclothing and see this helps her symptoms and if not we will consider right lateral cutaneous nerve block under ultrasound All questions were answered. I shall see the patient back for reassessment following her epidural steroid injection and bilateral trochanteric bursa injections.
--- OUTSIDE RECORDS SUMMARY | 2016-07-13 09:38 | XMS REPORT | Referral Summary ---
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 Discharge Disposition: 01-Home or Self Care Attending [...] Daily, # 90 tabs, 0 Refill(s), Pharmacy: [facility], 1 tabs Oral Daily,x90 [...] q12hr, # 20 tabs, 0 Refill(s), Pharmacy: [facility] , 1 tabs Oral q12hr,x10 days [...] q12hr, # 20 tabs, 0 Refill(s), Pharmacy: [facility] , 1 tabs Oral q12hr Start [...] BID, # 180 tabs, 1 Refill(s), Pharmacy: [facility] Start Date: 02/17/15 Stop Date: 08/16/15 Status: Ordered multivitamin 1 tabs, Oral, qPM, 0 Refill(s) Start Date: 03/18/14 Status: Ordered [place] 5 mg-325 mg oral tablet 1 -2 [...] Extracted from: Title: Ambulatory Patient Education Author: Karyn Gamboa RN Date: Family Medicine Loop Ileostomy Reversal Care After Refer to this sheet in the next few weeks. These instructions provide you with information on caring for yourself after your procedure. Your caregiver may also give you more specific instructions. Your treatment has been planned according to current medical practices, but problems sometimes occur. Call your caregiver if you have any problems or questions after your procedure. HOME CARE INSTRUCTIONS Rest. Take pain medicine or other medicines as directed. Gradually return to daily activities. Gradually increase your exercise each day. Walking is a good option. Avoid strenuous activity, such as heavy lifting, for 6 weeks. Follow your caregiver's instructions to protect any surgical cuts ( incisions). Clean the area gently with warm water and soap every day as directed. Resume a normal diet. You may not have much of an appetite for several weeks after surgery. Try eating small meals and choose foods that appeal to you. You may need to limit foods temporarily that are difficult to digest, such as nuts, coconut, mushrooms, raw fruits, and raw vegetables. Follow up with your caregiver as directed. You may return to work when you feel able, depending upon your job duties. Always discuss your medicines with your caregiver before taking them. If you smoke, quit. Smoking slows the healing process. SEEK MEDICAL CARE IF: You develop chills. You feel nauseous. You vomit. You notice fluid drainage, bulging, redness, or pain around your incisions. You have frequent diarrhea. You experience shortness of breath. You have other new symptoms. You have questions or concerns. SEEK IMMEDIATE MEDICAL CARE IF: You feel dizzy, lightheaded, or faint. You measure pouch drainage of more than 1,500 ml per day. This amount of drainage can lead to dehydration. Your abdominal pain does not go away or becomes severe. You have a fever. You keep vomiting. You have an irregular heartbeat or chest pain. MAKE SURE YOU: Understand these instructions. Will watch your condition. Will get help right away if you are not doing well or get worse. This information is not intended to replace advice given to you by your health care provider. Make sure you discuss any questions you have with your health care provider. Document Released: 01/25/2012 Document Revised: 06/02/2013 Document Reviewed: [employer] Patient Information 2015 [employer], [employer]. No follow up information was provided.
--- NOTE | 2016-07-13 09:39 | ERPDOC ---
Departure Disposition Decision Date: July 13, 2016 Disposition Decision Time: 09:47 Disposition: 01 DISCHARGED HOME, SELF-CARE Impression Impression Impression: Primary Impression: Venous insufficiency of both lower extremities Additional Impression: Cellulitis of both lower extremities Severity: Moderate Condition: Stable Seen By: Physician only Referrals: GERTRUDE LONGORIA MD Follow-up next week for reevaluation Patient Instructions: Venous Insufficiency (GEN) Problems/Meds/Labs Reviewed?: Yes Medications reviewed and manag: Yes Follow up care ordered?: Yes Mental Status: Alert, Oriented Scripts Cephalexin (Keflex) 500 Mg Capsule 1 CAP PO TID for 7 Days, #21 CAP Prov: SERA AYOUB MD 07/13/16 Furosemide (Furosemide) 20 Mg Tablet 1 TAB PO BID for 5 Days, #10 TAB Prov: SERA AYOUB MD 07/13/16 HPI - General Medical General Chief Complaint: Acute Medical Problem Stated Complaint: SWOLLEN FEET AND HANDS, SKIN TURNING RED Time Seen by Provider: 09:37 HPI - General Medical Allergies: Coded Allergies: morphine (Verified Allergy, Unknown, HIVES, 07/13/16) Past History Past Medical History Metabolic: cancer, hypertension GI: GERD Musculoskeletal: back pain, osteoarthritis Surgical History General: gallbladder, other Reproductive/: hysterectomy Vaccines Hx Influenza Vaccination: No (10 YRS AGO) Hx Pneumococcal Vaccination: No Physical Exam General Vitals and Pain First Documented Vital Signs Date Time Temp Pulse Resp B/P Pulse Ox O2 Delivery O2 Flow Rate FiO2 07/13/16 09:32 97.4 71 12 129/61 94 Room Air Weight: Kilograms: Height (feet): 5 Height (inches): 8 Triage Pain Scale: Progress Results/Orders Orders Procedure Category Date Status Time Premade Splint EDM 07/13/16 Transmitted 09:46 Premade Splint EDM 07/13/16 Transmitted 09:46 SERA AYOUB MD July 13, 2016 09:39
--- OUTSIDE RECORDS SUMMARY | 2016-07-13 09:39 | XMS REPORT | Referral Summary ---
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
--- OUTSIDE RECORDS SUMMARY | 2016-07-13 09:39 | XMS REPORT | Referral Summary ---
Author Author [facility] Organization [facility] Address Unknown Phone Unavailable Care Team Providers Care Cook Pressure Name Role Phone Leilanimariela Noah Primary Care Physician [phone] Encounter VC Date(s): 06/15/15 - 06/15/15 [facility] [address] [place], [place] [address] Discharge Diagnosis: Adenoca of rectum Discharge Diagnosis: H/O ileostomy Discharge Disposition: 01-Home or Self Care [...] # 30 tabs, 0 Refill(s), Pharmacy: [facility], TAKE 1 TABLET BY MOUTH [...] # 42 tabs, 0 Refill(s), Pharmacy: [facility] , 1 tabs Oral q12hr,x21 [...] # 42 tabs, 0 Refill(s), Pharmacy: [facility] , 1 tabs Oral q12hr,x21 days Start Date: 05/17/15 Stop Date: 06/07/15 Status: Ordered Flonase 50 mcg/inh nasal spray 2 sprays, Nasal, Daily, Seasonal Allergy Symptoms, 0 Refill(s) Start Date: 06/24/14 Status: Ordered hydrochlorothiazide 25 mg oral tablet 25 mg 1 tabs, Oral, Daily, # 90 tabs, 1 Refill(s), Pharmacy: [facility], 1 tabs Oral Daily Start Date: 02/17/15 Status: Ordered hydrocortisone 2.5% topical cream 1 bc, Topical, TID, prn as needed, # 30 g, 0 Refill(s), Pharmacy: [facility] Start Date: 06/14/15 Status: Ordered lutein 20 mg oral tablet 20 mg 1 tabs, Oral, Daily, # 30 tabs, 0 Refill(s) Start Date: 03/18/14 Status: Ordered magnesium oxide 400 mg (241.3 mg elemental magnesium) oral tablet 800 mg 2 tabs, Oral, Daily, # 60 tabs, 3 Refill(s), Pharmacy: [facility] , 2 tabs Oral Daily Start Date: 08/25/14 Status: Ordered metoprolol tartrate 25 mg oral tablet 25 mg 1 tabs, Oral, BID, # 180 tabs, 1 Refill(s), Pharmacy: [facility] Start Date: 02/17/15 Stop Date: 08/16/15 Status: Ordered multivitamin 1 tabs, Oral, qPM, 0 Refill(s) Start Date: 03/18/14 Status: Ordered Jefferson 5 mg-325 mg oral tablet 1 -2 [...] Daily, # 30 tabs, 3 Refill(s), Pharmacy: [facility] , 1 tabs Oral Daily Start Date: 12/16/14 Status: Ordered Vitamin C 500 mg, Oral, qPM, 0 Refill(s) Start Date: 07/19/14 Status: Ordered Results No data available for this section Immunizations Vaccine Date Refusal Reason influenza virus vaccine, inactivated 11/24/14 pneumococcal 23-polyvalent vaccine 03/19/15 Procedures Procedure Date Related Diagnosis Body Site Endoscopic evaluation of small intestinal 06/15/15 pouch (eg, Kock pouch, ileal reservoir [S or J]); diagnostic, including collection of specimen(s) by brushing or washing, when performed (separate procedure) Closure Ileostomy1 03/11/15 LEFT L2-3/L4-5 TRANSFORAMINAL 11/11/14 [...] 8 Assessment and Plan Extracted from: Title: Results reported Author: Caroline Burdick Date: 06/15/[address] Rick Shearer of positive c. diff result. No orders at this time. Dr. Shearer states he will address with his RN tomorrow. Extracted from: Title: Office Visit Note Author: Rick Shearer MD Date: 06/15/15 Assessment/Plan Adenoca of rectum Ordered: ndsc [place] intstinal [place] w/[place] [address] Office Visit Level 3 Est 68572 Chronic diarrhea Ordered: C. Difficile toxin B by PCR ndsc eval intstinal pouch dx w/[place] 40565 Office Visit Level 3 Est 93014 Stool Culture w/ Campy and Shigatoxin H/O ileostomy We spent about 15 minutes in [id number] discussion. I'm going to go ahead and place her back on [facility]. I also want her to order some V SL # 3. This is probably the best probiotic on the market. I'm also going to start her on tincture of opium. This was sent out to a local pharmacy. C. difficile testing has been ordered on the stool specimen. Further recommendations will follow. Ordered: ndsc eval intstinal pouch dx w/[place] spx [address]20 Office Visit Level 3 Est 18863 Orders: opium, See Instructions, 0.5 ml po tid, # 50 mL, 0 Refill(s)
--- OUTSIDE RECORDS SUMMARY | 2016-07-13 09:39 | XMS REPORT | CCD ---
Author Author [facility] Organization Unknown Address [address], [place] [id number] Phone 0 Care Team Providers Care Plc Engineer Name Role Phone MAGDIEL KHAN Attending Physician 0 MAGDIEL KHAN Primary Surgeon 0 Vital Signs Unknown or Not Available. Allergies Allergy Code Allergy Type Reaction Status MORPHINE 7052 Drug allergy ITCHING Active Procedures Unknown or Not Available. History of Immunizations Unknown or Not Available. Problems Unknown or Not Available. Results COMP METABOLIC - Collect Date/Time: 07/18/2014 23:19 Test Name Code Test Result Test Units Test Ref Range GLUCOSE 131 mg/dL L=70 H=110 BUN 50 mg/dL L=7 H=18 CREATININE 3.00 mg/ dL L=0.60 H=1.30 AGE 74 YEARS GFR 16.3 SODIUM 127 mmol/L L=136 H=145 POTASSIUM 3.9 mmol/ L L=3.5 H=5.1 CHLORIDE 90 mmol/L L=98 H=107 CO2 24 mmol/L L=21 H=32 CALCIUM 8.9 mg/dL L=8.5 H=10.1 AST 33 U/L L=15 H=37 ALT 24 U/L L=12 H=78 ALKALINE PHOS 125 U/ L L=50 H=136 TOTAL PROTEIN 7.6 g/ dL L=6.4 H=8.2 ALBUMIN 2.6 g/dL L=3.4 H=5.0 TOTAL BILI 0.60 mg/ dL L=0.00 H=1.00 TROPONIN I (QUANT) - Collect Date/Time: 07/18/2014 23:19 Test Name Code Test Result Test Units Test Ref Range TROPONIN I <0.02 ng/ mL L=0.00 H=0.05 CBC W/ DIFF - Collect Date/Time: 07/18/2014 23:19 Test Name Code Test Result Test Units Test Ref Range WBC 16.2 x10^3 L=4.8 H=10.8 RBC 3.43 x10^6 L=4.20 H=5.40 HEMOGLOBIN 11.1 g/ dL L=12.0 H=16.0 HEMATOCRIT 33.5 % L=37.0 H=47.0 MCV 98 fL L=80 H=100 MCH 32.3 pg L=27.0 H=33.0 MCHC 33.1 g/dL L=33.0 H=37.0 RDW 13.9 % L=11.5 H=14.5 PLATELETS 572 x10^3 L=150 H=450 MPV 7.6 fL L=7.8 H=11.0 NEUTROPHILS 77.9 % L=40.0 H=80.0 LYMPHOCYTES 10.6 % L=20.0 H=45.0 MONOCYTES 11.0 % L=0.0 H=10.0 EOSINOPHILS 0.3 % L=0.0 H=5.0 BASOPHILS 0.2 % L=0.0 H=2.0 SEG 66 %% L=40 H=80 BAND 13 %% L=0 H=5 LYMPH 17 %% L=20 H=45 MONO 2 %% L=0 H=10 EOS 2 %% L=0 H=5 BASO 0 %% L=0 H=2 ATYP LYMPH 0 %% L=0 H=10 META 0 %% L=0 H=1 REFLEX MAN DIFF YES N/A RBC MORPHOLOGY NORMAL N/A Active Medications Unknown or Not Available. Medications Administered During Visit Unknown or Not Available. Encounters Encounter Diagnosis Diagnosis Code Start Date ACUTE KIDNEY FAILURE UNSPECIFIED 5849 Social History Smoking Status Code Start Date End Date Former smoker [id number] Patient Decision Aids Unknown or Not Available. Discharge Instructions You were admitted to [facility] on 07/18/2014 with a principal diagnosis of ACUTE KIDNEY FAILURE UNSPECIFIED. You were discharged from [facility] on 07/19/2014. Should you have any questions prior to discharge, please contact a member of your healthcare team. If you have left the hospital and have any questions, please contact your primary care physician. Chief Complaint and Reason For Visit Chief Complaint Date of Onset Syncope Function Status Unknown or Not Available. Plan of Care Unknown or Not Available. Referral/Transition of Care Unknown or Not Available.
--- OUTSIDE RECORDS SUMMARY | 2016-07-13 09:39 | XMS REPORT | Referral Summary ---
Author Author [facility] Organization [facility] Address Unknown Phone Unavailable Care Team Providers Care Bridge Tender Name Role Phone Noah Arzate Primary Care Physician [phone] Encounter [facility] [id number] Date(s): 01/22/15 - 02/21/15 [facility] [address] [place] [address] Final: Encounter for attention to ileostomy Discharge Disposition: 01-Home or Self Care [...] [facility], 1 tabs Oral Daily Start Date: 02/17/15 [...] Daily, # 60 tabs, 3 Refill(s), Pharmacy: [facility] , 2 tabs Oral [...] Daily, # 30 tabs, 3 Refill(s), Pharmacy: [facility] , [...]
--- OUTSIDE RECORDS SUMMARY | 2016-07-13 09:39 | XMS REPORT | Referral Summary ---
Author Author [facility] Organization [facility] Address Unknown Phone Unavailable Care Team Providers Care Stock Preparation Supervisor Name Role Phone Noah Arzate Primary Care Physician [phone] Encounter [facility] MARIO [id number] Date(s): 07/31/14 - 07/31/14 [facility] [address] [place] [address] Final: Fever, unspecified Discharge Disposition: Without Being Seen Attending Physician: Randy Monzon MD Admitting Physician: Randy Monzon MD Vital Signs Most recent to 1 oldest [Reference Range]: Temperature Oral 36.7 degC [35.8-37.3 degC] (07/31/14 6:23 PM) Peripheral Pulse 102 bpm Rate [60-100 bpm] *HI* (07/31/14 6:23 PM) Respiratory Rate 18 br/min [14-20 br/min] (07/31/14 6:23 PM) Blood Pressure 99/52 mmHg [90-140/60-90 mmHg] (07/31/14 6:23 PM) SpO2 96 % (07/31/14 6:23 PM) Problem List Condition Effective Dates Status [...] Daily, # 90 tabs, 0 Refill(s), Pharmacy: [facility], 1 tabs Oral Daily,x90 days Start Date: 12/10/14 Stop Date: 03/10/15 Status: Ordered aspirin 81 mg oral tablet 81 mg 1 tabs, Oral, qPM, # 30 tabs, 0 Refill(s) Start Date: 03/18/14 Status: Ordered Bystolic 5 mg oral tablet 2.5 mg 0.5 tabs, Oral, Daily, # 15 tabs, 0 Refill(s), Pharmacy: [facility], 0.5 tabs Oral Daily Start Date: 02/03/15 Status: Ordered Calcium 600+D 1 tabs, Oral, Daily, 0 Refill(s) Start Date: 03/18/14 Status: Ordered chlorthalidone 25 mg oral tablet 25 mg 1 tabs, Oral, Daily, # 90 tabs, 0 Refill(s), Pharmacy: [facility], 1 tabs Oral Daily,x90 days Start [...] Chlorthalidone, # 90 tabs, 0 Refill(s), Pharmacy: [facility], 1 tabs Oral Daily,Instr:APPT in 30 [...] Daily, # 60 tabs, 3 Refill(s), Pharmacy: [facility] , 2 tabs Oral Daily Start [...] day., # 28 tabs, 0 Refill(s), Pharmacy: [facility] Start Date: 02/04/15 Status: Ordered multivitamin 1 tabs, Oral, qPM, 0 Refill(s) Start Date: 03/18/14 Status: Ordered potassium chloride 20 mEq oral tablet, extended release 20 mEq 1 tabs, Oral, Daily, # 30 tabs, 3 Refill(s), Pharmacy: [facility] , 1 tabs Oral Daily Start [...]
--- OUTSIDE RECORDS SUMMARY | 2016-07-13 09:39 | XMS REPORT | Referral Summary ---
Author Author [facility] Organization [facility] Address Unknown Phone Unavailable Care Team Providers Care Enterprise Resource Planner Name Role Phone Noah Arzate Primary Care Physician [phone] Encounter [facility] [id number] Date(s): 04/13/16 - 04/13/16 [facility] [address] [place], [place] [address] Discharge Diagnosis: Seborrheic keratoses Discharge Diagnosis: History of skin cancer Discharge Disposition: 01-Home or Self Care [...] Daily, # 90 tabs, 1 Refill(s), Pharmacy: [facility] Start Date: 09/17/15 Stop Date: 03/15/16 Status: Ordered aspirin 81 mg oral tablet 81 mg 1 tabs, Oral, qPM, # 30 tabs, 0 Refill(s) Start Date: 03/18/14 Status: Ordered Calcium 600+D 1 tabs, Oral, Daily, 0 Refill(s) Start Date: 03/18/14 Status: Ordered citalopram 20 mg oral tablet See Instructions, TAKE 1 TABLET BY MOUTH DAILY, # 30 tabs, eRx: [facility], TAKE 1 TABLET BY MOUTH DAILY Start Date: 03/30/16 Status: Ordered Claritin 10 mg, Oral, Daily, [...] Daily, # 90 tabs, 1 Refill(s), Pharmacy: [facility] Start Date: 09/17/15 Status: Ordered Lomotil 2.5 mg-0.025 mg oral [...] BID, # 180 tabs, 1 Refill(s), Pharmacy: [facility] Start Date: 09/17/15 Stop Date: [...] Daily, # 30 tabs, 3 Refill(s), Pharmacy: [facility] , 1 tabs Oral Daily Start Date: 12/16/14 Status: Ordered Vitamin C 500 mg, Oral, qPM, 0 Refill(s) Start Date: 07/19/14 Status: Ordered Results No data available for this section Immunizations Given and Recorded Vaccine Date Status Refusal Reason influenza virus vaccine, inactivated 11/24/14 Recorded pneumococcal 23-polyvalent vaccine 03/19/15 Given Procedures Procedure Date Related Diagnosis Body Site [...] Visit Note Author: Don Mccarty MD Date: 04/13/16 Assessment/Plan 1.Seborrheic keratoses -Reassurance regarding the benign nature of these lesions -Discussed ABCDEs of melanoma and recommended monthly skin self-examination -Recommended pt schedule a clinic appointment for anyconcerning lesions Ordered: Office Visit Level 3 Est 50742 2.History of skin cancer -Reassured pt regarding thebenign appearance of these lesions today -Discussed ABCDEs of melanoma, pt provided with brochure detailing these features -Discussed warning signs of NMSC. -Discussed proper sun protective behavior including: avoiding the hours of peak sun exposure (10am-2pm), wearing sunscreen SPF 30 or higher and reapplying every 2 hours for prolonged sun exposure, and wearing sun protective clothing including a wide brimmed hat -Encouraged monthly skin self examination -Encouraged pt to call and schedule an earlier appointment for any concerning changes or concerning new lesions. -RTC 6 months for skin check. Ordered: Office Visit Level 3 Est 73931
--- OUTSIDE RECORDS SUMMARY | 2016-07-13 09:39 | XMS REPORT | Referral Summary ---
Author Organization Unknown Address Unknown Phone Unavailable Care Team Providers Care Registered Pharmacist Name Role Phone Jonnie Gonzalez Primary Care Physician [phone] Encounter [facility] Date(s): 03/25/14 - 03/25/14 [facility] [address] [place], [place] [address] Discharge Diagnosis: Lumbar spinal stenosis Discharge Disposition: Home or Self Care Attending Physician: Mathieu Benjamin MD Admitting Physician: Mathieu Benjamin MD Vital Signs No data available for this section Problem List Condition Effective Dates Status Health Status Informant Hypertension(Confirm Active ed) Colon 1998 Active cancer(Confirmed)1 Morbid Active patient obesity(Confirmed) Lumbar spinal Active stenosis(Confirmed) Tobacco Active patient user(Confirmed) 1SGY X3 Allergies, [...]
--- OUTSIDE RECORDS SUMMARY | 2016-07-13 09:39 | XMS REPORT | Referral Summary ---
Author Author [facility] Organization [facility] Address Unknown Phone Unavailable Care Team Providers Care Ethical Hacker Name Role Phone LeilanimarielaNoah Primary Care Physician [phone] Encounter VC Date(s): 11/25/14 - 11/25/14 [facility] [address] [place], [place] [email or web address] Discharge Diagnosis: ENTHESOPATHY OF HIP REGION Discharge Disposition: 01-Home or Self Care Attending Physician: Neo Rasheed MD Admitting Physician: Neo Rasheed MD Referring Physician: Roxanna Gonzalez DO Vital Signs Most recent to 1 oldest [Reference Range]: Blood Pressure 136/74 mmHg [90-140/60-90 mmHg] (11/25/14 3:22 PM) Problem List Condition Effective Dates Status [...] Daily, # 90 tabs, 0 Refill(s), Pharmacy: [facility], 1 tabs Oral Daily,x90 days Start [...] Daily, # 90 tabs, 0 Refill(s), Pharmacy: [facility], 1 tabs Oral Daily,x90 days Start Date: 11/24/14 Stop Date: 02/22/15 Status: Ordered Claritin 10 mg, Oral, Daily, as needed for allergy symptoms, 0 Refill(s) Start Date: 06/24/14 Status: Ordered ferrous sulfate 325 mg (65 mg elemental iron) oral delayed release tablet See Instructions, 1 tabs Oral TID, # 90 tabs, eRx: [facility], 1 tabs Oral TID [...] Chlorthalidone, # 90 tabs, 0 Refill(s), Pharmacy: [facility], 1 tabs Oral Daily,Instr:APPT in 30 [...] Daily, # 60 tabs, 3 Refill(s), Pharmacy: [facility] , 2 tabs Oral Daily Start [...] Daily, # 30 tabs, 3 Refill(s), Pharmacy: [facility] , 1 tabs Oral Daily Start Date: 08/25/14 Status: Ordered Vitamin C 500 mg, Oral, qPM, 0 Refill(s) Start Date: 07/19/14 Status: Ordered Results No data available for this section Immunizations Vaccine Date Refusal Reason influenza virus vaccine, inactivated 11/24/14 Procedures Procedure Date Related Diagnosis Body Site Arthrocentesis, aspiration and/or injection, 11/25/14 major joint or bursa (eg, shoulder, hip, knee, subacromial bursa); without ultrasound guidance LEFT L2-3/L4-5 TRANSFORAMINAL 11/11/14 Laparotomy Exploratory1 07/01/14 [...]
--- OUTSIDE RECORDS SUMMARY | 2016-07-13 09:39 | XMS REPORT | Referral Summary ---
Author Author [facility] Organization [facility] Address Unknown Phone Unavailable Care Team Providers Care Associate Professor Of Archaeology Name Role Phone Noah Arzate Primary Care Physician [phone] Encounter VC Date(s): 06/29/14 - 07/06/14 [facility] [address] [place] [address] Discharge Diagnosis: Rectal cancer Final: MALIGNANT NEOPLASM OF RECTUM Final: Acute Kidney Failure, Unspecified Final: OLIGURIA AND ANURIA Final: Genetic susceptibility to other malignant neoplasm Final: PERFORATION OF INTESTINE Final: PERITONEAL ADHESIONS (POSTOPERATIVE) (POSTINFECTION) Discharge Disposition: 01-Home or Self Care Attending Physician: Rick Shearer MD Admitting Physician: Rick Shearer MD Vital Signs Most recent to 1 oldest [Reference Range]: Temperature Axillary 36.9 degC [35.2-36.7 degC] *HI* (07/04/14 7:55 AM) Temperature Oral 36.8 degC [35.8-37.3 degC] (07/06/14 2:00 PM) Temperature Tympanic 37.3 degC [36.6-38.1 degC] (06/29/14 12:50 PM) Temperature Skin 37.2 degC [36-37 degC] *HI* (07/01/14 8:40 PM) Temperature Temporal 36.5 degC Artery [36.3-37.8 (06/29/14 9:00 PM) degC] Peripheral Pulse 90 bpm Rate [60-100 bpm] (07/06/14 2:00 PM) Heart Rate Monitored 96 bpm [60-100 bpm] (07/01/14 8:20 PM) Respiratory Rate 18 br/min [14-20 br/min] (07/06/14 2:00 PM) Blood Pressure 128/76 mmHg [90-140/60-90 mmHg] (07/06/14 2:00 PM) Mean Arterial 101 mmHg Pressure, Cuff (07/02/14 4:00 PM) SpO2 96 % (07/06/14 2:00 PM) Problem List Condition Effective Dates Status [...] tabs Oral TID, # 90 tabs, eRx: [facility], 1 tabs Oral TID Start Date: [...] Chlorthalidone, # 90 tabs, 0 Refill(s), Pharmacy: [facility], 1 tabs Oral Daily,Instr:APPT in 30 [...] Daily, # 60 tabs, 3 Refill(s), Pharmacy: [facility] , 2 tabs Oral Daily [...] Daily, # 30 tabs, 3 Refill(s), Pharmacy: [facility] , 1 tabs Oral Daily Start Date: 12/16/14 Status: Ordered Vitamin C 500 mg, Oral, qPM, 0 Refill(s) Start Date: 07/19/14 Status: Ordered Results Hematology Most recent to 1 oldest [Reference Range]: WBC [4.8-10.8 11.3 10*3/uL 10*3/uL] *HI* (07/05/14 9:04 AM) RBC [4.00-5.20 2.88 10*6/uL 10*6/uL] *LOW* (07/05/14 9:04 AM) Hgb [12.0-16.0 9.1 gm/dL gm/dL] *LOW* (07/05/14 9:04 AM) Hct [37.0-47.0 %] 27.8 % *LOW* (07/05/14 9:04 AM) MCV [82.0-99.0 fL] 96.5 fL (07/05/14 9:04 AM) MCH [27.0-32.0 pg] 31.6 pg (07/05/14 9:04 AM) MCHC [32.0-36.0 32.7 gm/dL gm/dL] (07/05/14 9:04 AM) RDW [11.5-14.5 %] 13.6 % (07/05/14 9:04 AM) Platelet [150-400 265 10*3/uL 10*3/uL] (07/05/14 9:04 AM) MPV [9.4-12.4 fL] 9.6 fL (07/05/14 9:04 AM) Immature 0.5 % Granulocytes (07/02/14 6:49 AM) [0.0-1.0 %] Neutrophils [51-75 86 % %] *HI* (07/02/14 6:49 AM) Lymphocytes [20-46 8 % %] *LOW* (07/02/14 6:49 AM) Monocytes [4-11 %] 6 % (07/02/14 6:49 AM) Eosinophils [0-4 %] 0 % (07/02/14 6:49 AM) Basophils [0-2 %] 0 % (07/02/14 6:49 AM) Neutro Absolute 10.32 10*3 [1.90-7.00 10*3] *HI* (07/02/14 6:49 AM) Lymph Absolute 0.93 10*3 [0.80-3.30 10*3] (07/02/14 6:49 AM) Granite Absolute 0.70 10*3 [0.30-1.00 10*3] (07/02/14 6:49 AM) Eos Absolute 0.00 10*3 [0.00-0.50 10*3] (07/02/14 6:49 AM) Baso Absolute 0.01 10*3 [0.00-0.20 10*3] (07/02/14 6:49 AM) Nucleated RBC 0.0 /100 WBC Automated [0 /100 (07/02/14 6:49 AM) WBC] Chemistry Most recent to 1 oldest [Reference Range]: Sodium Lvl [136-144 139 mEq/L mEq/L] (07/06/14 7:02 AM) Potassium Lvl 3.7 mEq/L [3.6-5.1 mEq/L] (07/06/14 7:02 AM) Chloride [99-109 106 mEq/L mEq/L] (07/06/14 7:02 AM) CO2 [22-32 mEq/L] 27 mEq/L (07/06/14 7:02 AM) AGAP [3-20] 6 (07/06/14 7:02 AM) BUN [4-20 mg/dL] 9 mg/dL (07/06/14 7:02 AM) Glucose Lvl [70-100 100 mg/dL mg/dL] (07/06/14 7:02 AM) Creatinine Lvl 0.59 mg/dL [0.44-1.03 mg/dL] (07/06/14 7:02 AM) eGFR [>60] >60 1 (07/06/14 7:02 AM) Calcium Lvl 7.8 mg/dL [8.6-10.0 mg/dL] *LOW* (07/06/14 7:02 AM) Albumin Lvl [3.5-4.8 2.2 gm/dL gm/dL] *LOW* (07/06/14 7:02 AM) Magnesium Lvl 1.5 mg/dL [1.8-2.5 mg/dL] *LOW* (07/06/14 7:02 AM) Phosphorus [2.4-4.7 1.9 mg/dL 2 mg/dL] *LOW* (07/06/14 7:02 AM) Blood Glucose, 98 mg/dL Capillary [70-100 (07/01/14 5:31 PM) mg/dL] 1Result Comment: Multiply eGFR results by 1.21 for race. 2Result Comment: High dosages of liposomal Amphotericin B (AmBisome) therapy or other drug preparations that use a liposomal envelope to facilitate drug delivery may cause falsely elevated results for phosphorus. Immunizations Vaccine Date Refusal Reason influenza virus [...]
--- OUTSIDE RECORDS SUMMARY | 2016-07-13 09:39 | XMS REPORT | Referral Summary ---
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 Discharge Disposition: 01-Home or Self Care Attending Physician: Neo Rasheed MD Admitting Physician: Neo Rasheed MD Referring Physician: Roxanna Gonzalez DO Vital Signs Most recent to 1 oldest [Reference Range]: Blood Pressure 149/93 mmHg [90-140/60-90 mmHg] *HI* (10/29/14 3:56 PM) Problem List Condition Effective Dates Status [...] # 90 tabs, 0 Refill(s), Pharmacy: [facility], 1 tabs Oral Daily,x90 days [...] # 14 tabs, 0 Refill(s), Pharmacy: [facility] , 1 tabs Oral q12hr,x7 days [...] q12hr, # 14 tabs, 0 Refill(s), Pharmacy: [facility] , 1 tabs Oral q12hr,x7 days [...] TID, # 30 g, 1 Refill(s), Pharmacy: [facility] Start Date: 04/20/15 Status: Ordered lutein 20 [...] 0 Refill(s) Start Date: 03/18/14 Status: Ordered Mulberry 5 mg-325 mg oral tablet 1 -2 [...] Closure Ileostomy1 03/11/15 LEFT L2-3/L4-5 TRANSFORAMINAL 11/11/14 Arthrocentesis, aspiration and/or injection, 10/29/14 major joint or bursa (eg, shoulder, hip, knee, subacromial bursa); with ultrasound guidance, with permanent recording and reporting Arthrocentesis, aspiration and/or injection, 10/29/14 major joint or bursa (eg, shoulder, hip, knee, subacromial bursa); with ultrasound guidance, with permanent recording and reporting Arthrocentesis, aspiration and/or injection, 10/29/14 major joint or bursa (eg, shoulder, hip, knee, subacromial bursa); with ultrasound guidance, with permanent recording and reporting Arthrocentesis, aspiration and/or injection, 10/29/14 major joint or bursa (eg, shoulder, hip, knee, subacromial bursa); without ultrasound guidance Arthrocentesis, aspiration and/or injection, 10/29/14 major joint or bursa (eg, shoulder, hip, knee, subacromial bursa); without ultrasound guidance Laparotomy Exploratory2 07/01/14 Cystoscopy Ureteral Stent Insertion3 [...]
--- OUTSIDE RECORDS SUMMARY | 2016-07-13 09:40 | XMS REPORT | Referral Summary ---
Author Author [facility] Organization [facility] Address Unknown Phone Unavailable Care Team Providers Care Dance Studio Manager Name Role Phone Leilanimariela Noah Primary Care Physician [phone] Encounter Date(s): 07/14/14 - 07/14/14 [facility] 1945 [place], [place] [address] Discharge Diagnosis: Cedillo syndrome Discharge Diagnosis: Rectal [...] tabs Oral TID, # 90 tabs, eRx: [facility], 1 tabs Oral TID Start [...] Chlorthalidone, # 90 tabs, 0 Refill(s), Pharmacy: [facility], 1 tabs Oral Daily,Instr:APPT in [...] Daily, # 60 tabs, 3 Refill(s), Pharmacy: [facility] , 2 tabs Oral Daily [...] Daily, # 30 tabs, 3 Refill(s), Pharmacy: [facility] , 1 tabs Oral Daily [...] Visit Note Author: Rick Shearer MD Date: 07/14/14 Assessment/Plan Cedillo syndrome Ordered: [place] Est 24608 Rectal cancer I did review her pathology report. 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 The tumor was limited to the submucosa. Surgical margins were benign. 10 lymph nodes were negative. The tumor was mucinous. Thus, this was a T1, N0 tumor. Our plan at this point in time is to have her see the enterostomal nurse. I believe that she would benefit from a different appliance. I would like to see her back again in one month. All of her questions were answered. Ordered: Postoperative Est 20111
--- OUTSIDE RECORDS SUMMARY | 2016-07-13 09:40 | XMS REPORT | Referral Summary ---
Author Author [facility] Organization [facility] Address Unknown Phone Unavailable Care Team Providers Care Routing Machine Operator Name Role Phone Noah Arzate Primary Care Physician [phone] Encounter VC Date(s): 11/24/14 - 11/24/14 [facility], [address] [place] [address] Discharge Disposition: 01-Home or [...] tabs, 0 Refill(s), Pharmacy: [facility], 1 tabs Oral Daily,x90 days [...] q12hr, # 42 tabs, 0 Refill(s), Pharmacy: [facility] , 1 tabs Oral q12hr,x21 days [...] q12hr, # 42 tabs, 0 Refill(s), Pharmacy: [facility] , 1 tabs Oral q12hr,x21 days [...] TID, # 30 g, 1 Refill(s), Pharmacy: [facility] Start Date: 04/20/15 Status: Ordered lutein [...] BID, # 180 tabs, 1 Refill(s), Pharmacy: [facility] Start Date: 02/17/15 Stop Date: 08/16/15 Status: Ordered multivitamin 1 tabs, Oral, qPM, 0 Refill(s) Start Date: 03/18/14 Status: Ordered [place] 5 mg-325 mg oral tablet 1 -2 [...] 11:16 AM) Hgb [12.0-16.0 12.4 gm/dL gm/dL] (11/24/14:16 AM) Hct [37.0-47.0 %] 38.7 % (11/24/14:16 AM) MCV [82.0-99.0 fL] 93.5 fL (11/24/14 11:16 AM) MCH [27.0-32.0 pg] 30.0 pg (11/24/14:16 AM) MCHC [32.0-36.0 32.0 gm/dL gm/dL] (11/24/14 11:16 AM) RDW [11.5-14.5 %] 15.9 % *HI* (11/24/14:16 AM) Platelet [150-400 262 10*3/uL 10*3/uL] (11/24/14 11:16 AM) MPV [8.8-14.8 fL] 9.7 fL (11/24/14 11:16 AM) Immature 0.1 % Granulocytes (11/24/14:16 AM) [0.0-1.0 %] Neutrophils [51-75 60 % %] (11/24/14 11:16 AM) Lymphocytes [20-46 27 % %] (11/24/14:16 AM) Monocytes [4-11 %] 11 % (11/24/14 11:16 AM) Eosinophils [0-4 %] 1 % (11/24/14 11:16 AM) Basophils [0-2 %] 1 % (11/24/14 11:16 AM) Neutro Absolute 5.27 10*3 [1.90-7.00 10*3] (11/24/14 11:16 AM) Lymph Absolute 2.39 10*3 [0.80-3.30 10*3] (11/24/14 11:16 AM) [place] Absolute 0.97 10*3 [0.30-1.00 10*3] (11/24/1416 AM) Eos Absolute 0.11 10*3 [0.00-0.50 10*3] (11/24/14:16 AM) Baso Absolute 0.05 10*3 [0.00-0.20 10*3] (11/24/1416 AM) Chemistry Most recent to 1 oldest [Reference Range]: Sodium Lvl [135-144 141 mEq/L mEq/L] (11/24/14 AM) Potassium Lvl 3.7 mEq/L [3.5-5.2 mEq/L] (11/24/14 AM) Chloride [99-111 104 mEq/L mEq/L] (11/24/14 AM) CO2 [22-31 mEq/L] 30 mEq/L (11/24/14 AM) AGAP [3-20] 7 (11/24/14 AM) BUN [10-20 mg/dL] 16 mg/dL (11/24/14 AM) Glucose Lvl [70-99 88 mg/dL mg/dL] (11/24/14 AM) Creatinine Lvl 0.82 mg/dL [0.57-1.11 mg/dL] (11/24/14 AM) eGFR [>60 mL/min] >60 mL/min 1 (11/24/14 AM) Calcium Lvl 9.6 mg/dL [8.9-10.5 mg/dL] (11/24/14 AM) Albumin Lvl [3.4-4.8 3.9 gm/dL gm/dL] (11/24/14 AM) Total Protein 6.6 gm/dL [6.2-8.1 gm/dL] (11/24/14 AM) Globulin [1.8-4.0 2.7 gm/dL gm/dL] (11/24/14 AM) ALT [0-55 U/L] 37 U/L (11/24/14 AM) AST [5-34 U/L] 23 U/L (11/24/1416 AM) Alk Phos [40-150 74 U/L U/L] (11/24/14 11:16 AM) Bili Total [0.2-1.2 0.4 mg/dL mg/dL] (11/24/14 11:16 AM) TSH with Reflex Free 1.14 T4 [0.35-4.94] (11/24/14 11:16 AM) 1Result Comment: Multiply eGFR results by 1.21 for race. Urinalysis Most recent to 1 oldest [Reference Range]: UA Color Yellow (11/24/14:26 AM) UA Appear Cloudy *ABN* (11/24/14:26 AM) UA pH [5.0-8.0] 6.5 (11/24/14 11:26 AM) UA Leuk Est Pos 2+ [Negative] *ABN* (11/24/14:26 AM) UA Nitrite Negative [Negative] (11/24/14:26 AM) UA Protein Negative [Negative] (11/24/14:26 AM) UA Glucose Negative [Negative] (11/24/14:26 AM) UA Ketones Negative [Negative] (11/24/14 11:26 AM) UA Urobilinogen 0.2 mg/dL [<1.0 mg/dL] (11/24/14:26 AM) UA Bili [Negative] Negative (11/24/14:26 AM) UA Blood [Negative] Negative (11/24/14:26 AM) UA Spec Grav 1.019 [1.003-1.030] (11/24/14:26 AM) Type Voided (11/24/14:26 AM) UA WBC [0-4] 5-10 *ABN* (11/24/14:26 AM) UA RBC [0-4] 5-10 *ABN* (11/24/14 11:26 AM) Epithelial Cells 2-5 (11/24/14:26 AM) UA Hyal Cast [0-3] 1-3 (11/24/14 11:26 AM) Microbiology Reports TEST: Urine Culture STATUS: Auth (Verified) BODY SITE: SOURCE: Urine COLLECTED DATE/TIME: 11/24/14 11:26 AM Urine Culture Low counts of mixed jillian present. No further workup will be performed on this culture. Immunizations Vaccine Date Refusal Reason influenza virus [...] Released: 03/15/2005 Document Revised: 10/08/2013 Document Reviewed: [facility] Patient Information 2015 [employer]. This information is not intended to replace [...]
--- OUTSIDE RECORDS SUMMARY | 2016-07-13 09:40 | XMS REPORT | Referral Summary ---
Author Author [facility] Organization [facility] Address Unknown Phone Unavailable Care Team Providers Care Manager Games Name Role Phone JavidsaloNoah Primary Care Physician [phone] Encounter VC Date(s): 11/25/14 - 11/25/14 [facility] [address] [place], [place] [address] Discharge Diagnosis: ENTHESOPATHY OF HIP REGION Discharge [...] # 90 tabs, 0 Refill(s), Pharmacy: [facility], 1 tabs Oral Daily,x90 days [...] # 42 tabs, 0 Refill(s), Pharmacy: [facility] , 1 tabs Oral [...] q12hr, # 42 tabs, 0 Refill(s), Pharmacy: [facility] , 1 tabs Oral q12hr,x21 days Start Date: 05/17/15 Stop Date: 06/07/15 Status: Ordered Flonase 50 mcg/inh nasal spray 2 sprays, Nasal, Daily, Seasonal Allergy Symptoms, 0 Refill(s) Start Date: 06/24/14 Status: Ordered hydrochlorothiazide 25 mg oral tablet 25 mg 1 tabs, Oral, Daily, # 90 tabs, 1 Refill(s), Pharmacy: [facility], 1 tabs Oral Daily Start Date: 02/17/15 Status: Ordered hydrocortisone 2.5% topical cream 1 bc, Topical, TID, # 30 g, 1 Refill(s), Pharmacy: [facility] Start Date: 04/20/15 Status: Ordered lutein 20 mg oral tablet 20 mg 1 tabs, Oral, Daily, # 30 tabs, 0 Refill(s) Start Date: 03/18/14 Status: Ordered magnesium oxide 400 mg (241.3 mg elemental magnesium) oral tablet 800 mg 2 tabs, Oral, Daily, # 60 tabs, 3 Refill(s), Pharmacy: [facility] , 2 tabs Oral Daily Start Date: 08/25/14 Status: Ordered metoprolol tartrate 25 mg oral tablet 25 mg 1 tabs, Oral, BID, # 180 tabs, 1 Refill(s), Pharmacy: [facility] Start Date: 02/17/15 Stop Date: 08/16/15 Status: Ordered multivitamin 1 tabs, Oral, qPM, 0 Refill(s) Start Date: 03/18/14 Status: Ordered [place] 5 mg-325 mg oral tablet 1 -2 tabs, Oral, q4hr, Pain Moderate (4-6), 0 Refill(s) Start Date: 03/13/15 Status: Ordered omega-3 polyunsaturated fatty acids oral capsule 1 caps, Oral, Daily, # 100 caps, 0 Refill(s) Start Date: 03/11/15 Status: Ordered potassium chloride 20 mEq oral tablet, extended release 20 mEq 1 tabs, Oral, Daily, # 30 tabs, 3 Refill(s), Pharmacy: [facility] , 1 tabs Oral Daily Start Date: 12/16/14 Status: Ordered Vitamin C 500 mg, Oral, qPM, 0 Refill(s) Start Date: 07/19/14 Status: Ordered Results No data available for this section Immunizations Vaccine Date Refusal Reason influenza virus vaccine, inactivated 11/24/14 pneumococcal 23-polyvalent vaccine 03/19/15 Procedures Procedure Date Related Diagnosis Body Site Closure Ileostomy1 03/11/15 Arthrocentesis, aspiration and/or injection, 11/25/14 major joint or bursa (eg, shoulder, hip, knee, subacromial bursa); with ultrasound guidance, with permanent recording and reporting Arthrocentesis, aspiration and/or injection, 11/25/14 major joint or bursa (eg, shoulder, hip, knee, subacromial bursa); with ultrasound guidance, with permanent recording and reporting Arthrocentesis, aspiration and/or injection, 11/25/14 major joint or bursa (eg, shoulder, hip, knee, subacromial bursa); with ultrasound guidance, with permanent recording and reporting Arthrocentesis, aspiration and/or injection, 11/25/14 major joint or bursa (eg, shoulder, hip, knee, subacromial bursa); without ultrasound guidance Arthrocentesis, aspiration and/or injection, 11/25/14 major joint or bursa (eg, shoulder, hip, knee, subacromial bursa); without ultrasound guidance LEFT L2-3/L4-5 TRANSFORAMINAL 11/11/14 Laparotomy Exploratory2 07/01/14 [...]
--- OUTSIDE RECORDS SUMMARY | 2016-07-13 09:40 | XMS REPORT | Referral Summary ---
Author Author [facility] Organization [facility] Address Unknown Phone Unavailable Care Team Providers Care Manager Mobile Name Role Phone Noah Arzate Primary Care Physician [phone] Encounter Date(s): 02/28/16 - 02/28/16 [facility] [address] [place] [address] Discharge Diagnosis: Depression Discharge Diagnosis: Adenoca of rectum Discharge Disposition: 01-Home or Self Care Attending Physician: Ruchi Gross PA-C Admitting Physician: Ruchi rGoss PA-C Vital Signs Most recent to 1 oldest [Reference Range]: Peripheral Pulse 64 bpm Rate [60-100 bpm] (02/28/16 1:26 PM) Respiratory Rate 18 br/min [14-20 br/min] (02/28/16 1:26 PM) Blood Pressure 120/68 mmHg [90-140/60-90 mmHg] (02/28/16 1:26 PM) Problem List Condition Effective Dates Status [...] Daily, # 90 tabs, 1 Refill(s), Pharmacy: [facility] Start Date: 09/17/15 Stop Date: 03/15/16 Status: Ordered aspirin 81 mg oral tablet 81 mg 1 tabs, Oral, qPM, # 30 tabs, 0 Refill(s) Start Date: 03/18/14 Status: Ordered Calcium 600+D 1 tabs, Oral, Daily, 0 Refill(s) Start Date: 03/18/14 Status: Ordered CeleXA 20 mg oral tablet 20 mg 1 tabs, Oral, Daily, # 30 tabs, 0 Refill(s), Pharmacy: [facility], Switch from Lexapro, 1 tabs Oral Daily Start Date: 02/28/16 Status: Ordered Claritin 10 mg, Oral, Daily, [...] Daily, # 90 tabs, 1 Refill(s), Pharmacy: [facility] Start Date: 09/17/15 Status: Ordered Lomotil [...] BID, # 180 tabs, 1 Refill(s), Pharmacy: [facility] Start Date: 09/17/15 Stop [...] Daily, # 30 tabs, 3 Refill(s), Pharmacy: [facility] , 1 tabs Oral [...] and Plan Extracted from: Title: Office Visit Note- [place] Author: Ruchi Gross PA-C Date: 02/27 depression Assessment/Plan Adenoca of rectum Has been having some issues with the bowels, which has been worsening her depression. Goes back to see Dr. Shearer next month. Ordered: Office Visit Level 3 Est 62601 Depression Will try switching her to Celexa. Start with 20mg daily for now. Call with report. Can increase to 30mg or 40mg if not helping. She is encouraged to stay active with her job, but do not hesitate to delegate responsibilities if becoming too stressful. Ordered: citalopram, 20 mg 1 tabs, Oral, Daily, # 30 tabs, 0 Refill(s), Pharmacy: [facility], Switch from Lexapro, 1 tabs Oral Daily Office Visit Level 3 Est 69770
--- OUTSIDE RECORDS SUMMARY | 2016-07-13 09:40 | XMS REPORT | Referral Summary ---
Author Author [facility] Organization [facility] Address Unknown Phone Unavailable Care Team Providers Care Concreting Supervisor Name Role Phone Noah Arzate Primary Care Physician [phone] Encounter VC Date(s): 03/11/15 - 03/25/15 [facility] [address] [place] [address] Discharge Disposition: 01-Home or Self Care Attending Physician: Rick Shearer MD Admitting Physician: Rick Shearer MD Vital Signs Most recent to 1 oldest [Reference Range]: Temperature Axillary 36.6 degC [35.2-36.7 degC] (03/21/15 8:44 PM) Temperature Oral 36.5 degC [35.8-37.3 degC] (03/25/15 12:00 PM) Temperature Tympanic 36.5 degC [36.6-38.1 degC] *LOW* (03/11/15 11:30 AM) Temperature Skin 36.6 degC [36-37 degC] (03/11/15 4:05 PM) Peripheral Pulse 79 bpm Rate [60-100 bpm] (03/25/15 12:00 PM) Heart Rate Monitored 68 bpm [60-100 bpm] (03/11/15 4:05 PM) Respiratory Rate 18 br/min [14-20 br/min] (03/25/15 12:00 PM) Blood Pressure 142/79 mmHg [90-140/60-90 mmHg] *HI* (03/25/15 12:00 PM) Mean Arterial 92 mmHg Pressure, Cuff (03/11/15 4:05 PM) Systolic Blood 133 mmHg Pressure Invasive 2 (03/17/15 9:02 PM) [90-140 mmHg] Diastolic Blood 78 mmHg Pressure Invasive 2 (03/17/15 9:02 PM) [60-90 mmHg] SpO2 97 % (03/25/15 12:00 PM) Problem List Condition Effective Dates Status [...] Daily, # 90 tabs, 0 Refill(s), Pharmacy: [facility], 1 tabs Oral Daily,x90 days Start [...] Daily, # 90 tabs, 1 Refill(s), Pharmacy: [facility], 1 tabs Oral Daily Start Date: 02/17/15 Status: Ordered lutein 20 mg oral tablet 20 mg 1 tabs, Oral, Daily, # 30 tabs, 0 Refill(s) Start Date: 03/18/14 Status: Ordered magnesium oxide 400 mg (241.3 mg elemental magnesium) oral tablet 800 mg 2 tabs, Oral, Daily, # 60 tabs, 3 Refill(s), Pharmacy: [facility] , 2 tabs Oral Daily Start Date: 08/25/14 Status: Ordered metoprolol tartrate 25 mg oral tablet 25 mg 1 tabs, Oral, BID, # 180 tabs, 1 Refill(s), Pharmacy: [facility] Start Date: 02/17/15 Stop Date: 08/16/15 Status: Ordered multivitamin 1 tabs, Oral, qPM, 0 Refill(s) Start Date: 03/18/14 Status: Ordered [place] 5 mg-325 mg oral tablet 1 -2 tabs, Oral, q4hr, Pain Moderate (4-6), 0 Refill(s) Start Date: 03/13/15 Status: Ordered omega-3 polyunsaturated fatty acids oral capsule 1 caps, Oral, Daily, # 100 caps, 0 Refill(s) Start Date: 03/11/15 Status: Ordered potassium chloride 20 mEq oral tablet, extended release 20 mEq 1 tabs, Oral, Daily, # 30 tabs, 3 Refill(s), Pharmacy: [facility] , 1 tabs Oral Daily Start [...] to 1 oldest [Reference Range]: WBC [4.8-10.8 10.4 10*3/uL 10*3/uL] (03/24/15 5:09 AM) RBC [4.00-5.20] 2.93 *LOW* (03/24/15 5:09 AM) Hgb [12.0-16.0 9.1 gm/dL gm/dL] *LOW* (03/24/15 5:09 AM) Hct [37.0-47.0 %] 28.3 % *LOW* (03/24/15 5:09 AM) MCV [82.0-99.0 fL] 96.6 fL (03/24/15 5:09 AM) MCH [27.0-32.0 pg] 31.1 pg (03/24/15 5:09 AM) MCHC [32.0-36.0 32.2 gm/dL gm/dL] (03/24/15 5:09 AM) RDW [11.5-14.5 %] 13.6 % (03/24/15 5:09 AM) Platelet [150-400 314 10*3/uL 10*3/uL] (03/24/15 5:09 AM) MPV [9.4-12.4 fL] 9.9 fL (03/24/15 5:09 AM) Chemistry Most recent to 1 oldest [Reference Range]: Sodium Lvl [136-144 139 mEq/L mEq/L] (03/24/15 5:09 AM) Potassium Lvl 3.9 mEq/L [3.6-5.1 mEq/L] (03/24/15 5:09 AM) Chloride [99-109 105 mEq/L mEq/L] (03/24/15 5:09 AM) CO2 [22-32 mEq/L] 25 mEq/L (03/24/15:09 AM) AGAP [3-20] 9 (03/24/15 5:09 AM) BUN [4-20 mg/dL] 10 mg/dL (03/24/15:09 AM) Glucose Lvl [70-100 96 mg/dL mg/dL] (03/24/15:09 AM) Creatinine Lvl 0.74 mg/dL [0.44-1.03 mg/dL] (03/24/15 5:09 AM) eGFR [>60] >60 1 (03/24/15:09 AM) Calcium Lvl 8.6 mg/dL [8.6-10.0 mg/dL] (03/24/15:09 AM) Albumin Lvl [3.5-4.8 2.3 gm/dL gm/dL] *LOW* (03/24/15:09 AM) Total Protein 5.3 gm/dL [6.1-7.9 gm/dL] *LOW* (03/22/15 5:26 AM) ALT [14-54 U/L] 18 U/L (03/22/15:26 AM) AST [15-41 U/L] 21 U/L (03/22/15 5:26 AM) Alk Phos [26-104 60 U/L U/L] (03/22/15 5:26 AM) Bili Total [0.2-1.2 0.3 mg/dL 2 mg/dL] (03/22/15 5:26 AM) Bili Direct [0.0-0.2 0.1 mg/dL mg/dL] (03/22/15 5:26 AM) Bili Indirect 0.2 mg/dL [0.0-1.0 mg/dL] (03/22/15 5:26 AM) Magnesium Lvl 2.0 mg/dL [1.8-2.5 mg/dL] (03/23/15 5:26 AM) Phosphorus [2.4-4.7 3.7 mg/dL 3 mg/dL] (03/24/15 5:09 AM) Calcium Ionized 1.26 mmol/L [1.19-1.41 mmol/L] (03/23/15 5:26 AM) Prealbumin [18-38 12 mg/dL mg/dL] *LOW* (03/22/15 5:26 AM) Blood Glucose, 102 mg/dL Capillary [70-100 *HI* mg/dL] (03/23/15 6:56 PM) Trig [0-150 mg/dL] 105 mg/dL (03/22/15 5:26 AM) 1Result Comment: Multiply eGFR results by [...] Procedures Procedure Date Related Diagnosis Body Site Replacement, complete, of a peripherally 03/25/15 inserted central venous catheter (PICC), without subcutaneous port or pump, through same venous access Insertion of peripherally inserted central 03/17/15 venous catheter (PICC), without subcutaneous port or pump; age 5 years or older.. Closure Ileostomy1 03/11/15 LEFT L2-3/L4-5 TRANSFORAMINAL 11/11/14 [...]
--- OUTSIDE RECORDS SUMMARY | 2016-07-13 09:40 | XMS REPORT | Referral Summary ---
Author Author [facility] Organization [facility] Address Unknown Phone Unavailable Care Team Providers Care Dining Room Supervisor Name Role Phone Leilanimariela Noah Primary Care Physician [phone] Encounter VC Date(s): 08/25/14 - 08/25/14 [facility] [address] [place], [place] [address] Discharge Diagnosis: Rectal cancer Discharge [...] Daily, # 90 tabs, 0 Refill(s), Pharmacy: [facility], 1 tabs Oral Daily,x90 days Start [...] Daily, # 90 tabs, 1 Refill(s), Pharmacy: [facility], 1 tabs Oral Daily Start [...] Daily, # 60 tabs, 3 Refill(s), Pharmacy: [facility] , 2 tabs Oral Daily Start Date: 08/25/14 Status: Ordered Metamucil Oral, 5 pills tid, 0 Refill(s) Start Date: 10/20/14 Status: Ordered metoprolol tartrate 25 mg oral tablet 25 mg 1 tabs, Oral, BID, # 180 tabs, 1 Refill(s), Pharmacy: [facility] Start Date: 02/17/15 Stop Date: 08/16/15 Status: Ordered multivitamin 1 tabs, Oral, qPM, 0 Refill(s) Start Date: 03/18/14 Status: Ordered potassium chloride 20 mEq oral tablet, extended release 20 mEq 1 tabs, Oral, Daily, # 30 tabs, 3 Refill(s), Pharmacy: [facility] , 1 tabs Oral Daily [...] Injection under 05/18/14 L2-3 Translaminar 04/30/14 Cholecystectomy 1995 Colon Surgery [...] Visit Note Author: Rick Shearer MD Date: 08/25/14 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 I will plan on seeing her next week. Likely by then it will be. We did refill her prescriptions. All of her questions were addressed. Ordered: Postoperative Est [id number] Orders: ferrous sulfate, 325 mg 1 tabs, Oral, TID, # 90 tabs, 0 Refill(s), Pharmacy: [facility], 1 tabs Oral TID magnesium oxide, 800 mg 2 tabs, Oral, Daily, # 60 tabs, 3 Refill(s), Pharmacy : [facility], 2 tabs Oral Daily
--- OUTSIDE RECORDS SUMMARY | 2016-07-13 09:40 | XMS REPORT | Referral Summary ---
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 Discharge Diagnosis: Lumbar disc herniation Discharge Disposition: 01-Home or Self Care Attending Physician: Deanne Agrawal PA-C Admitting Physician: Deanne Agrawal PA-C Referring Physician: Roxanna Gonzalez DO Vital Signs Most recent to 1 oldest [Reference Range]: Temperature Oral 36.4 degC [35.8-37.3 degC] (01/28/15 11:06 AM) Blood Pressure 124/68 mmHg [90-140/60-90 mmHg] (01/28/15 11:06 AM) Problem List Condition Effective Dates Status [...] # 90 tabs, 0 Refill(s), Pharmacy: [facility], 1 tabs Oral Daily,x90 days [...] # 42 tabs, 0 Refill(s), Pharmacy: [facility] , 1 tabs Oral q12hr,x21 [...] q12hr, # 42 tabs, 0 Refill(s), Pharmacy: [facility] , 1 tabs Oral q12hr,x21 days Start Date: 05/17/15 Stop Date: 06/07/15 Status: Ordered Flonase 50 mcg/inh nasal spray 2 sprays, Nasal, Daily, Seasonal Allergy Symptoms, 0 Refill(s) Start Date: 06/24/14 Status: Ordered hydrochlorothiazide 25 mg oral tablet 25 mg 1 tabs, Oral, Daily, # 90 tabs, 1 Refill(s), Pharmacy: [facility], 1 tabs Oral Daily Start Date: 02/17/15 Status: Ordered hydrocortisone 2.5% topical cream 1 bc, Topical, TID, # 30 g, 1 Refill(s), Pharmacy: [facility] Start Date: 04/20/15 Status: Ordered lutein 20 mg oral tablet 20 mg 1 tabs, Oral, Daily, # 30 tabs, 0 Refill(s) Start Date: 03/18/14 Status: Ordered magnesium oxide 400 mg (241.3 mg elemental magnesium) oral tablet 800 mg 2 tabs, Oral, Daily, # 60 tabs, 3 Refill(s), Pharmacy: [facility] , 2 tabs Oral Daily Start Date: 08/25/14 Status: Ordered metoprolol tartrate 25 mg oral tablet 25 mg 1 tabs, Oral, BID, # 180 tabs, 1 Refill(s), Pharmacy: [facility] Start Date: 02/17/15 Stop Date: 08/16/15 Status: Ordered multivitamin 1 tabs, Oral, qPM, 0 Refill(s) Start Date: 03/18/14 Status: Ordered [place] 5 mg-325 mg oral tablet 1 -2 tabs, Oral, q4hr, Pain Moderate (4-6), 0 Refill(s) Start Date: 03/13/15 Status: Ordered omega-3 polyunsaturated fatty acids oral capsule 1 caps, Oral, Daily, # 100 caps, 0 Refill(s) Start Date: 03/11/15 Status: Ordered potassium chloride 20 mEq oral tablet, extended release 20 mEq 1 tabs, Oral, Daily, # 30 tabs, 3 Refill(s), Pharmacy: [facility] , 1 tabs Oral [...] Office Visit Note Author: Jose Francisco Date: 11/05/14 Assessment/Plan Degenerative joint disease (DJD) of hip ENTHESOPATHY OF HIP REGION Lumbar disc herniation Lumbar spinal stenosis THORACIC OR LUMBOSACRAL NEURITIS OR RADICULITIS, UNSPECIFIED I discussed the patient's plan of care with Dr. Rasheed. I also reviewed the patient's most recentlumbar MRI with the patient and reviewed this MRI with Dr. Rasheed. According to this MRI the patient has L2-3grade 1degenerative listhesis with disc herniation mild to moderate bilateral foraminal encroachment mild central stenosis. L3 4 showedminimal degenerative listhesis with a mild disc herniation eccentric to the right with moderate right foraminal encroachmentmild left foraminal encroachment moderate central stenosis. L4 5 shows moderate facet arthropathy degenerative disc the disc herniation moderate to moderately severe bilateral foraminal encroachment more prominent on the left. Moderate central stenosis. Dr. Rasheed felt clinically the symptoms she is describingseems consistent with lumbar radiculopathy likely from the L2 3 and L4 5 levels as well as trochanteric bursitis. She has benefited from epidural injections and bursitis injections in the past. Dr. Rasheed recommends proceeding witha left L2-3 and L4 5 transforaminal epidural steroid injectionfollowed by left trochanteric bursitis injection under ultrasound. The patient does understand the rationale for the procedure as well as possible complications including bleeding, infection, allergic reaction, nerve irritation or damage, and risk of spinal headache. The patient also understands other remote possible complications including paraplegia, quadriplegia, , stroke, embolus, and seizure. The patient voiced understanding and wishes to proceed. The patient requests a local anesthetic. The patient will follow-up in 3 months following the injection. If the patient fails to improve or worsening symptoms, she will follow-up sooner. The patient voiced understanding and agrees to the above plan. Physical exam findings, history present illness, and recommendations are performed with and in agreement with Dr. Rasheed's findings.
--- OUTSIDE RECORDS SUMMARY | 2016-07-13 09:40 | XMS REPORT | Referral Summary ---
Author Author [facility] Organization [facility] Address Unknown Phone Unavailable Care Team Providers Care Judo Instructor Name Role Phone Noah Arzate Primary Care Physician [phone] Encounter [facility] MARIO [id number] Date(s): 07/15/14 - 08/14/14 [facility] [address] [place] [address] Final: ATTENTION TO ILEOSTOMY Final: MALIGNANT NEOPLASM OF RECTUM Discharge Disposition: 01-Home or Self Care Attending [...] Daily, # 90 tabs, 1 Refill(s), Pharmacy: [facility], 1 tabs Oral Daily Start Date: [...] Daily, # 60 tabs, 3 Refill(s), Pharmacy: [facility] , 2 tabs Oral Daily Start Date: 08/25/14 Status: Ordered Metamucil Oral, 5 pills tid, 0 Refill(s) Start Date: 10/20/14 Status: Ordered metoprolol tartrate 25 mg oral tablet 25 mg 1 tabs, Oral, BID, # 180 tabs, 1 Refill(s), Pharmacy: [facility] Start Date: 02/17/15 Stop Date: 08/16/15 Status: Ordered multivitamin 1 tabs, Oral, qPM, 0 Refill(s) Start Date: 03/18/14 Status: Ordered potassium chloride 20 mEq oral tablet, extended release 20 mEq 1 tabs, Oral, Daily, # 30 tabs, 3 Refill(s), Pharmacy: [facility] , 1 tabs Oral Daily [...]
--- OUTSIDE RECORDS SUMMARY | 2016-07-13 09:41 | XMS REPORT | Referral Summary ---
Author Author [facility] Organization [facility] Address Unknown Phone Unavailable Care Team Providers Care Live In Housekeeper Nanny Name Role Phone Noah Arzate Primary Care Physician [phone] Encounter VC Date(s): 06/29/14 - 07/06/14 [facility] [address] [place] [address] [phone] Discharge Diagnosis: Rectal cancer Final: MALIGNANT NEOPLASM [...] # 90 tabs, eRx: [facility], 1 tabs Oral TID Start Date: [...] [facility], 1 tabs Oral Daily,Instr:APPT in 30 [...] Daily, # 60 tabs, 3 Refill(s), Pharmacy: [facility] , 2 tabs Oral Daily [...] 0.93 10*3 [0.80-3.30 10*3] (07/02/14 6:49 AM) [place] Absolute 0.70 10*3 [0.30-1.00 10*3] (07/02/14 6:49 [...]
--- OUTSIDE RECORDS SUMMARY | 2016-07-13 09:41 | XMS REPORT | Referral Summary ---
Author Author [facility] Organization [facility] Address Unknown Phone Unavailable Care Team Providers Care City Mail Carrier Name Role Phone Noah Arzate Primary Care Physician [phone] Encounter VC Date(s): 08/19/14 - 08/19/14 [facility] [address] [place] [address] Final: Peritoneal abscess Final: UNSPECIFIED ESSENTIAL HYPERTENSION Discharge Disposition: 01-Home or Self Care Attending Physician: Rick Shearer MD Admitting Physician: Rick Shearer MD Vital Signs Most recent to 1 oldest [Reference Range]: Temperature Skin 36.6 degC [36-37 degC] (08/19/14 3:30 PM) Peripheral Pulse 84 bpm Rate [60-100 bpm] (08/19/14 3:30 PM) Heart Rate Monitored 80 bpm [60-100 bpm] (08/19/14 10:15 AM) Respiratory Rate 16 br/min [14-20 br/min] (08/19/14 3:30 PM) Blood Pressure 122/70 mmHg [90-140/60-90 mmHg] (08/19/14 3:30 PM) SpO2 98 % (08/19/14 3:30 PM) Problem List Condition Effective Dates Status [...] Daily, # 90 tabs, 1 Refill(s), Pharmacy: [facility], 1 tabs Oral Daily Start Date: [...] Daily, # 60 tabs, 3 Refill(s), Pharmacy: [facility] , 2 tabs Oral Daily Start Date: 08/25/14 Status: Ordered Metamucil Oral, 5 pills tid, 0 Refill(s) Start Date: 10/20/14 Status: Ordered metoprolol tartrate 25 mg oral tablet 25 mg 1 tabs, Oral, BID, # 180 tabs, 1 Refill(s), Pharmacy: [facility] Start Date: 02/17/15 Stop Date: 08/16/15 Status: Ordered multivitamin 1 tabs, Oral, qPM, 0 Refill(s) Start Date: 03/18/14 Status: Ordered potassium chloride 20 mEq oral tablet, extended release 20 mEq 1 tabs, Oral, Daily, # 30 tabs, 3 Refill(s), Pharmacy: [facility] , 1 tabs Oral Daily Start Date: 12/16/14 Status: Ordered Vitamin C 500 mg, Oral, qPM, 0 Refill(s) Start Date: 07/19/14 Status: Ordered Results Hematology Most recent to 1 oldest [Reference Range]: WBC [4.8-10.8 15.5 10*3/uL 10*3/uL] *HI* (08/19/14 7:36 AM) RBC [4.00-5.20 2.94 10*6/uL 10*6/uL] *LOW* (08/19/14 7:36 AM) Hgb [12.0-16.0 8.4 gm/dL gm/dL] *LOW* (08/19/14 7:36 AM) Hct [37.0-47.0 %] 26.0 % *LOW* (08/19/14 7:36 AM) MCV [82.0-99.0 fL] 88.4 fL (08/19/14 7:36 AM) MCH [27.0-32.0 pg] 28.6 pg (08/19/14 7:36 AM) MCHC [32.0-36.0 32.3 gm/dL gm/dL] (08/19/14 7:36 AM) RDW [11.5-14.5 %] 16.3 % *HI* (08/19/14 7:36 AM) Platelet [150-400 551 10*3/uL 10*3/uL] *HI* (08/19/14 7:36 AM) MPV [9.4-12.4 fL] 8.6 fL *LOW* (08/19/14 7:36 AM) Neutrophils [51-75 84 % %] *HI* (08/19/14 7:36 AM) Band Man [0-8 %] 1 % (08/19/14 7:36 AM) Lymphocytes [20-46 7 % %] *LOW* (08/19/14 7:36 AM) Monocytes [4-11 %] 9 % (08/19/14 7:36 AM) Eosinophils [0-4 %] 0 % (08/19/14 7:36 AM) Basophils [0-2 %] 0 % (08/19/14 7:36 AM) Neutro Absolute 13.18 10*3 [1.90-7.00 10*3] *HI* (08/19/14 7:36 AM) Lymph Absolute 1.09 10*3 [0.80-3.30 10*3] (08/19/14 7:36 AM) [place] Absolute 1.40 10*3 [0.30-1.00 10*3] *HI* (08/19/14 7:36 AM) Eos Absolute 0.02 10*3 [0.00-0.50 10*3] (08/19/14 7:36 AM) Baso Absolute 0.03 10*3 [0.00-0.20 10*3] (08/19/14 7:36 AM) Nucleated RBC 0.0 /100 WBC Automated [0 /100 (08/19/14 7:36 AM) WBC] Differential Reviewed (08/19/14 7:36 AM) Coagulation Most recent to 1 oldest [Reference Range]: INR [0.9-1.2] 1.2 (08/19/14 7:36 AM) PTT [25.0-35.0] 26.8 (08/19/14 7:36 AM) Microbiology Reports TEST: Fluid Culture and Smear STATUS: Auth (Verified) BODY SITE: SOURCE: Fluid COLLECTED DATE/TIME: 08/19/14 9:48 AM Fluid Culture and Smear Streptococcus anginosus large amount Gemella morbillorum large amount Haemophilus parainfluenzae small amount beta-lactamase negative Susceptibility not performed ORGANISM:Streptococcus anginosus ORGANISM:Gemella morbillorum ORGANISM:Haemophilus parainfluenzae TEST: Anaerobic Culture STATUS: Auth (Verified) BODY SITE: SOURCE: Fluid COLLECTED DATE/TIME: 08/19/14 9:48 AM Anaerobic Culture Mixed anaerobic jillian isolated. No further workup will be performed on this culture. Immunizations Vaccine Date Refusal Reason influenza virus vaccine, inactivated 11/24/14 Procedures Procedure Date Related Diagnosis Body Site LEFT L2-3/L4-5 TRANSFORAMINAL 11/11/14 Contrast injection for assessment of abscess 08/19/14 or cyst via previously placed drainage catheter or tube (separate procedure) Image-guided fluid collection drainage by 08/19/14 catheter (eg, abscess, hematoma, seroma, lymphocele, cyst); visceral (eg, kidney, liver, spleen, lung/mediastinum), percutaneous Laparotomy Exploratory1 07/01/14 Cystoscopy Ureteral Stent Insertion2 [...]
[2016-07-13] MEDS ORDERED: PSYL0.4C2 PO (09:58)
[2016-07-13] MEDS ORDERED: OPIU10TI PO (09:58)
[2016-07-13] MEDS ORDERED: LOPE2TAB24 PO (09:59)
[2016-07-13] MEDS ORDERED: DIPH1TAB PO (10:00)
[2016-07-13] MEDS ORDERED: METO25TA6 PO (10:01)
[2016-07-13] MEDS ORDERED: CITA20TA9 PO (10:04)
[2016-07-13] MEDS ORDERED: HYDR25TA PO (10:04)
[2016-07-13] MEDS ORDERED: ESCI10TA47 PO (10:04)
[2016-07-13] MEDS ORDERED: DOCO1CAP6 PO (10:04)
[2016-07-13] MEDS ORDERED: CHOL200014 PO (10:06)
[2016-07-13] MEDS ORDERED: NAPR220T61 PO (10:07)
--- OUTSIDE RECORDS SUMMARY | 2016-07-13 10:07 | XMS REPORT | Continuity of Care Document ---
Demographics Preferred Language Unknown Marital Status Unknown Presybeterian Affiliation Unknown Race Unknown Ethnic Group Unknown Author Author [facility] Organization [facility] Address Unknown Phone Unavailable Allergies Medications Problems Procedures Results Encounters ACCT No. Visit Date/Time Discharge Status Pt. Type Provider Facility Loc./Unit Complaint [id number] 03/11/2015 17:47:00 [facility] Unknown
[2016-07-13] MEDS ORDERED: FURO20TA4 PO ×2 (10:08→10:09)
[2016-07-13] MEDS ORDERED: CEPH-583 PO (10:09)
--- OUTSIDE RECORDS SUMMARY | 2016-07-13 10:09 | XMS REPORT | Continuity of Care Document ---
Author Author [facility] Organization [facility] Address Unknown Phone Unavailable Support Name Relationship Address Phone ZANDRA MARSHALL MD Caregiver [facility] [address] [place] [address] [address] [place] [phone] JAI ILM DO Caregiver [address] [place] [phone] WILLEM CHRISTIANSEN Next Of Kin [address] [place] [id number] Insurance Providers Payer Name Policy Number Subscriber Name Relationship Medicare [id number] Edgar Christiansen 18 Self Other A Insurance [id number] Edgar Christiansen 18 Self Advance Directives Directive [...] F (96.8 - 99.1) Temperature (Calculated Celsius) 37.71116 degrees C (36.0 - 37.3) Temperature Source [...]
--- OUTSIDE RECORDS SUMMARY | 2016-07-13 10:09 | XMS REPORT | Continuity of Care Document ---
Author Author [facility] Organization [facility] Address Unknown Phone Unavailable Support Name Relationship Address Phone WILLEM CHRISTIANSEN Next Of Kin [address] [place] [address] Unavailable Insurance Providers Payer Name Policy Number Subscriber Name Relationship Medicare [id number] Edgar Christiansen 19 Self Other A Insurance [id number] Edgar Christiansen 19 Self Problems No Known [...] Summary. Procedures Procedure Code Date DIAGNOSTIC SIGMOIDOSCOPY 73240 09/03/12
== END 2016-07-13 10:15 | disposition home or self-care (01) ==
LOC: ED 09:29
DX: I87.2 Venous insufficiency (chronic) (peripheral) (principal); L03.116 Cellulitis of left lower limb; L03.115 Cellulitis of right lower limb; I10 Essential (primary) hypertension